=== PATIENT | male | born 1975 | race Two or more races ===

== ENCOUNTER → 2020-01-30 12:14 | Outpatient (BNVA) | payer MEDICARE, MEDICAID, SELFPAY | PROVIDERS: PCP Internal Medicine; Referring Provider Internal Medicine; Visit Provider Student in an Organized Health Care Education/Training Program | DX: M25.50 Pain in unspecified joint (principal); M17.0 Bilateral primary osteoarthritis of knee; Z91.040 Latex allergy status; Z88.0 Allergy status to penicillin; Z91.013 Allergy to seafood | CPT/HCPCS: 99212 ==

== ENCOUNTER 2020-05-01 08:11 | Outpatient (REF) | payer OTHER, SELFPAY ==
[2020-05-01 09:42] LABS: Alanine Aminotransferase 25 U/L (0-40); Albumin Level 4.3 g/dL (3.5-5.0); Alkaline Phosphatase 71 U/L (39-117); Anion Gap 11 (12-20); Aspartate Amino Transferase 19 U/L (5-37); Bilirubin Total 0.7 mg/dL (0.0-1.0); Blood Urea Nitrogen 14 mg/dL (9-16); Calcium 9.1 mg/dL (8.4-10.2); Carbon Dioxide 30 mmol/L (22-29); Chloride 103 mmol/L (96-108); Cholesterol 165 mg/dL; Estimated Glomerular Filt Rate > 60; Glucose Fasting 89 mg/dL (60-99); HDL Cholesterol 46 mg/dL; LDL Cholesterol Calculated 107 mg/dl; Potassium 4.2 mmol/l (3.3-5.1); Sodium 140 mmol/L (135-145); Triglycerides 62 mg/dL
== END 2020-05-01 08:12 | disposition home or self-care (01) ==
LOC: HO.LAB 08:11
PROVIDERS: Visit Provider Internal Medicine
DX: R73.02 Impaired glucose tolerance (oral) (principal); E78.5 Hyperlipidemia, unspecified
CPT/HCPCS: 36415; 80053; 80061

== ENCOUNTER 2021-05-09 12:09 | Emergency (ER) | payer OTHER, SELFPAY ==
--- NOTE | ~2021-05-09 | XR_ITS ---
EXAMINATION: XR SHOULDER, RIGHT CLINICAL INFORMATION: Right shoulder pain COMPARISON: None TECHNIQUE: AP external rotation, Grashey and scapular Y views of the right shoulder. FINDINGS: There is no acute fracture or dislocation. There are severe glenohumeral joint space narrowing with subchondral cystic formation and spurring of the inferior humeral head and inferior glenoid the upper mid clavicular joint spaces preserved. Visualized portion of the lungs is clear. Overlying soft tissues are intact. XR/XR shoulder RT min 2V IMPRESSION: No acute bony abnormality of the right shoulder. Moderate to severe degenerative changes of the glenohumeral joint.
[2021-05-09 12:14] VITALS: BP 138/89; PULSE 107; RESP 20; TEMP 37.6; O2SAT 99; BMI 29.2
--- NOTE | 2021-05-09 12:18 | ED_ITS ---
HPI - Extremity Problem General Chief complaint: Extremity Injury, Upper Stated complaint: arthritis u/a to move rt shoulder painful lumps Time Seen by Provider: 05/09/21 12:18 Source: patient Mode of arrival: ambulatory Limitations: no limitations History of Present Illness HPI Narrative: Patient is a 45 year old male presenting to the emergency department today with right shoulder pain. Patient states that he has an extensive history of arthritis in his right shoulder but today it has been hurting him more. Patient states that he believes he slept on it wrong. Patient denies doing anything new or different with the right shoulder. Patient denies any dizziness, lightheadedness, abdominal pain, nausea, vomiting, fever, chills, blurry vision, double vision, loss of vision, chest pain, difficulty breathing, shortness of breath, back pain, night sweats, pain with urination, increased urinary frequency, increased urinary urgency, blood in his urine or stool, syncope or a near syncopal episode, recent trauma or falls, bowel incontinence, bladder incontinence, bowel retention, bladder retention, or any other complaints at this time. MD Complaint: extremity pain Onset (ago): year(s) Pain Consistency: intermittent Location: right and upper extremity (shoulder) Severity scale (1-10): 4 Quality: aching Radiation: distal Relieving factors: nothing Exacerbating factors: nothing Associated symptoms: denies other symptoms Related Data Previous Rx's Medication Instructions Recorded diclofenac sodium 1 % topical gel 2 g TOPICAL BID #100 g 01/30/20 (Voltaren) cyclobenzaprine 10 mg tablet 10 mg PO TID PRN 7 Days #20 tab 05/09/21 Allergies Allergy/AdvReac Type Severity Reaction Status Date / Time latex [LATEX] Allergy Intermediate ITCHING Verified 01/30/20 12:28 Penicillins Allergy Intermediate RASH Verified 01/30/20 12:28 [PENICILLINS] Shrimp Flavor Allergy Unknown tracheal Uncoded 10/24/19 00:00 swelling Review of Systems Verdana 4l Constitutional: Verdana 4d Verdana 4d Constitutional: Verdana 4d Reports no additional constitutional complaints, Denies chills, Denies fever(s) and Denies night sweats Verdana 4l Eyes: Verdana 4d Verdana 4d Eyes: Verdana 4d Reports no additional eye complaints, Denies blurry vision, Denies change in vision, Denies diplopia, Denies eye discharge, Denies loss of vision and Denies eye pain Verdana 4l ENT: Verdana 4d Denies dizziness Verdana 4l Cardiovascular: Verdana 4d Verdana 4d Cardiovascular: Verdana 4d Reports no additional cardiovascular complaints, Denies chest pain, Denies lightheadedness, Denies Loss of Consciousness and Denies dyspnea Verdana 4l Respiratory: Verdana 4d Verdana 4d Respiratory: Verdana 4d Reports no additional respiratory complaints and Denies dyspnea Verdana 4l Gastrointestinal: Verdana 4d Verdana 4d Gastrointestinal: Verdana 4d Reports no additional gastrointestinal complaints, Denies abdominal pain, Denies melena, Denies hematochezia, Denies change in bowel habits and Denies change in stool character Verdana 4l Genitourinary: Verdana 4d Verdana 4d Genitourinary: Verdana 4d Reports no additional male genitourinary complaints, Denies hematuria, Denies oliguria, Denies difficulty urinating, Denies dysuria, Denies urinary frequency, Denies urinary hesitancy, Denies urinary incontinenceincontinence and Denies urinary urgency Musculoskeletal: Musculoskeletal: Reports no additional musculoskeletal complaints, Reports arthralgias (right shoulder), Reports limited range of motion (right shoulder), Denies numbness and Denies tingling Neurologic: Denies dizziness, Denies loss of vision, Denies numbness and Denies tingling Psychiatric: Psychiatric: Reports no additional psychiatric complaints Endocrine: Endocrine: Reports no additional endocrine complaints Hematologic/Lymphatic: Hematologic/Lymphatic: Reports no additional hematologic/lymphatic complaints Allergic/Immunologic: Allergic/Immunologic: Reports no additional allergic/immunologic complaints [facility] Past Medical History Attestation statement: The following information was validated with the patient. Source: old records reviewed Medical History Bilateral primary osteoarthritis of knee Carpal tunnel syndrome Impaired glucose tolerance Lumbar spondylosis Social History Social History Alcohol intake: current Alcohol intake frequency: a few times a month Alcohol type: beer Advance Directives: No Advance Directives Information Provided: Yes Physical Exam Verdana 4l Vital Signs: Verdana 4d Verdana 4d Vital Signs: Verdana 4d Verdana 4Bd Last Vital Signs Verdana 4d Marble Coper New 4d Marble Coper New 4d Temp 99.6 F 05/09/21 12:14 Marble Coper New 4d Pulse 107 H 05/09/21 12:14 Marble Coper New 4d Resp 20 05/09/21 12:14 BP 138/89 05/09/21 12:14 Pulse Ox 99 05/09/21 12:14 BMI result Body Mass Index 29.2 Const: General: cooperative, no acute distress, alert and awake Nutritional Appearance: well nourished Orientation/consciousness: patient oriented x3 Limitations: no limitations HENMT: Head: Yes normal to inspection and Yes atraumatic Ears: hearing grossly normal bilaterally and external ears normal General nose exam: Normal external nose present, no nasal discharge noted and no epistaxis Face and sinus: Yes normal facial exam, No abrasion and No laceration Mouth: Normal oral and palatal mucosa present, no drooling and no muffled voice Eyes: General: appearance normal, both eyes and all related structures Periorbital: periorbital findings normal Eyelids: Yes eyelids normal Conjunctivae: conjunctivae normal Pupils: Equal, round and reactive pupils present EOM: EOMs intact bilaterally Neck: Neck: Yes normal visual inspection, Yes full ROM and Yes no lymphadenopathy Chest: Chest palpation & inspection: normal inspection of the chest Resp: Effort & Inspection: normal respiratory effort and able to speak in complete sentences Auscultation: clear to auscultation bilaterally Cardio: Rate: regular rate Rhythm: regular rhythm GI: Inspection: Yes normal to inspection Neuro: General: patient oriented x3 and moves all extremities Cranial nerves: Yes Equal, round and reactive pupils present Cognition (Neuro): normal cognition Motor exam (neuro): 5/5 motor strength present throughout Sensory Exam: Normal double simultaneous stimulation for sensation Coordination: [id number] test normal Extrem: Other: restricted ROM of the right shoulder secondary to pain General: Yes normal to inspection and Yes capillary refill normal Psych: Appearance: grossly normal Mental Status: mental status grossly normal Affect: normal affect Attitude: cooperative Thought process: Normal thought process present Thought content: Normal thought content present Insight: Good insight present (Psych) MDM - Extremity (Nontraumatic) MDM Narrative Medical decision making narrative: Patient is a 45 year old male presenting to the emergency department today with. Patient's physical exam showed limited range of motion to the right shoulder, secondary to pain. However, patient's circulation, sensation, and motor was otherwise intact to the right upper extremity. Patient's right shoulder x-ray showed no acute process. Patient's presentation today is most consistent with a musculoskeletal right shoulder pain. I suspect it is worsening arthritis in the right shoulder joint vs. a radiculopathy. I explained my physical exam findings as well as all test results to the patient. I answered all questions asked by the patient. Patient received IM Toradol and PO Flexeril which he stated helped his symptoms significantly. I stressed the importance of the patient taking his medication as prescribed. I stressed the importance of the patient following up with his primary care provider and an orthopedist. I stressed the importance of the patient returning to the emergency department immediately if his symptoms were to worsen or if he were to develop any dizziness, shortness of breath, difficulty breathing, chest pain, blurry vision, loss of vision, nausea, vomiting, abdominal pain, fever, chills, back pain, or any other complaints. Patient verbalized agreement and understanding with this treatment plan and discharge. Differential Diagnosis Differential diagnosis: Unlikely gout (shoulder pain, arthritis, rotator cuff injury) Medical Records Attestation: I reviewed the patient's medical records. Imaging Data right shoulder x-ray: Attestation: I personally reviewed and interpreted this imaging study as follows: My impression: Negative for any acute fractures. Radiologist's impression: EXAMINATION: XR SHOULDER, RIGHT CLINICAL INFORMATION: Right shoulder pain? COMPARISON: None? TECHNIQUE: AP external rotation, Grashey and scapular Y views of the right shoulder. FINDINGS: There is no acute fracture or dislocation. There are severe glenohumeral joint space narrowing with subchondral cystic formation and spurring of the inferior humeral head and inferior glenoid the upper mid clavicular joint spaces preserved. Visualized portion of the lungs is clear. Overlying soft tissues are intact.? XR/XR shoulder RT min 2V IMPRESSION: No acute bony abnormality of the right shoulder. ? Moderate to severe degenerative changes of the glenohumeral joint. Dictated By: LUIS GARCIA MD Signed By: Electronically signed by LUIS GARCIA MD Discharge Plan Discharge Clinical Impression: Acute shoulder pain Patient Disposition: Home, Self-Care Instructions: Shoulder Pain (ED) Additional Instructions: Call to schedule a follow up appointment with an Orthopedic provider. Follow up with your primary care provider. Return to the emergency department immediately if your symptoms worsen or if you develop any dizziness, shortness of breath, difficulty breathing, chest pain, blurry vision, loss of vision, nausea, vomiting, abdominal pain, fever, chills, back pain, or any other complaints. Prescriptions: New cyclobenzaprine 10 mg tablet 10 mg PO TID PRN (Reason: right shoulder pain) 7 Days Qty: 20 0RF No Action diclofenac sodium [Voltaren] 1 % gel 2 g topical BID Qty: 100 1RF Rx Instructions: apply 2 gram as needed to affected joint Referrals: Deandra Griffin MD [Primary Care Provider] - 2 days Interventions: ED Discharge Assessment Last Done: 05/09/21 13:20 Discharge Date/Time: 05/09/21 13:20 Print Language: Arabic
[2021-05-09] MEDS: Cyclobenzaprine HCl 10 MG TABLET PO (13:14)
[2021-05-09] MEDS: Ketorolac Tromethamine 30 MG/ML VIAL IM (13:14)
== END 2021-05-09 13:20 | disposition home or self-care (01) ==
PROVIDERS: Emergency Provider Emergency Medicine; PCP Internal Medicine
DX: M25.511 Pain in right shoulder (principal); Z79.899 Other long term (current) drug therapy
CPT/HCPCS: 73030; 96372; 99284; J1885

== ENCOUNTER 2021-05-13 10:56 | Outpatient (REF) | payer OTHER, SELFPAY ==
--- NOTE | ~2021-05-13 | XR_ITS ---
EXAMINATION: XR CHEST CLINICAL INFORMATION: Pleurodynia COMPARISON: 01/13/2011 TECHNIQUE: 2 views of the chest were obtained. FINDINGS: Cardiomediastinal silhouette is within normal limits. There is an oblong nodular opacity in the peripheral right upper lung field on the frontal radiograph. No additional areas of consolidation or suspicious pulmonary nodules. No pleural effusion or pneumothorax. Osseous structures are unremarkable. XR/XR chest 2V IMPRESSION: [place] nodular opacity in the peripheral right upper lung field measuring approximately 1.6 cm. This could represent focal consolidation, atelectasis versus pulmonary nodule. Recommend CT chest to better evaluate.
--- NOTE | ~2021-05-13 | XR_ITS ---
EXAMINATION: XR SHOULDER, LEFT CLINICAL INFORMATION: Pain in left shoulder COMPARISON: None TECHNIQUE: AP external rotation, Grashey, scapular Y, and axillary views of the left shoulder. FINDINGS: No displaced fracture. The glenohumeral joint appears intact. There are bulky marginal plates along the inferior glenoid and inferior humeral head, question prior trauma. Acromioclavicular joint appears intact. Soft tissues are unremarkable. XR/XR shoulder LT min 2V IMPRESSION: Bulky marginal osteophyte formation in the inferior glenoid and inferior humeral head, question prior trauma/dislocation
== END 2021-05-13 10:57 | disposition home or self-care (01) ==
LOC: HO.XRAY 10:56
PROVIDERS: PCP Internal Medicine; Visit Provider Nurse Practitioner Family
DX: G89.29 Other chronic pain (principal); M25.512 Pain in left shoulder; R07.81 Pleurodynia
CPT/HCPCS: 71046; 73030

== ENCOUNTER 2021-05-25 11:27 | Outpatient (REF) | payer OTHER, SELFPAY | END 2021-05-25 11:28 | disposition home or self-care (01) | LOC: HO.CT 11:27 | PROVIDERS: PCP Internal Medicine; Visit Provider Nurse Practitioner Family | DX: Z13.89 Encounter for screening for other disorder (principal) ==

== ENCOUNTER → 2021-05-26 09:54 | Outpatient (BNVA) | payer OTHER, SELFPAY | PROVIDERS: Visit Provider Physician Assistant | DX: M19.012 Primary osteoarthritis, left shoulder (principal); M25.512 Pain in left shoulder; G89.29 Other chronic pain | CPT/HCPCS: 99202 ==

== ENCOUNTER → 2021-06-03 14:49 | Outpatient (BNVA) | payer OTHER, SELFPAY | PROVIDERS: Referring Provider Internal Medicine; Visit Provider Surgery | DX: Z01.818 Encounter for other preprocedural examination (principal); L72.0 Epidermal cyst | CPT/HCPCS: 99202 ==

== ENCOUNTER 2021-06-22 08:17 | Outpatient (REF) | payer OTHER, SELFPAY ==
--- NOTE | ~2021-06-22 | CT_ITS ---
EXAMINATION: CT CHEST WITH CONTRAST CLINICAL INFORMATION: Solitary pulmonary nodule COMPARISON: Previous chest x-ray May 2021 TECHNIQUE: Multidetector volumetric CT imaging of the chest was obtained after the administration of 65 mL of Omnipaque 350 intravenous contrast without immediate adverse reactions. Axial MIP volume rendering provided. Sagittal and coronal reformatted images were obtained. This CT examination was performed using dose optimization techniques as appropriate, variously including the following: *Automated exposure control *Adjustment of mA and/or kV according to patient size (this includes techniques or standardized protocols for targeted exams where dose is matched to indication/reason for exam; i.e. extremities or head) *Use of iterative reconstruction technique DLP: 184 mGy-cm FINDINGS: TAPING SUPERVISOR: Unremarkable LUNGS: The lungs are clear with no evidence of inflammation or nodules. MEDIASTINUM: The mediastinum is normal. PLEURA: There is no pleural effusion. No pleural mass or thickening. AXILLA: No lymphadenopathy. UPPER ABDOMEN: Unremarkable OSSEOUS STRUCTURES: There are degenerative changes of the spine and right shoulder. CT/CT chest w con IMPRESSION: No pulmonary nodule seen. Fleischner guidelines were followed.
[2021-06-22] MEDS: iohexoL 350 MG/ML 100 ML INFUS..BTL IV (08:48)
== END 2021-06-22 08:18 | disposition home or self-care (01) ==
LOC: HO.CT 08:17
PROVIDERS: Visit Provider Nurse Practitioner Family
DX: R07.81 Pleurodynia (principal); R91.1 Solitary pulmonary nodule; R91.8 Other nonspecific abnormal finding of lung field
CPT/HCPCS: 71260; Q9967

== ENCOUNTER 2021-06-24 07:45 | Outpatient (REF) | payer OTHER, SELFPAY ==
[2021-06-24 07:47] VITALS: BP 132/81; PULSE 79; RESP 18; TEMP 37.3; BMI 32.1
--- NOTE | 2021-06-24 08:35 | W.PM.OPN ---
Operative Note Operative Note Date of Service: 06/24/21 Narrative: Preoperative diagnosis: mass left posterior shoulder Postoperative diagnosis: lipoma left posterior shoulder Procedure: excision of lipoma left posterior shoulder Surgeon: Tio Felix MD Ingot Buggy Operator: no physician Anesthesia: local lidocaine 1% plain Indications for procedure: 46-year-old male patient with an enlarging soft tissue mass in the posterior left shoulder measuring 6 cm in diameter Operative findings: lipoma left posterior shoulder 6 cm diameter Specimen: lipoma posterior left shoulder Estimated blood loss: 5 mL Complications: none Procedure details: patient was brought to the minor surgery suite and placed in a prone position. The site of surgery was confirmed by the patient in the posterior left shoulder. After assuring informed consent, the skin was prepped with Betadine and draped in a sterile fashion. Local anesthesia consisting of 1% lidocaine plain was infiltrated in a transverse fashion over the lipoma. The incision was then created with a scalpel carried out through subcutaneous tissue up to the anterior surface of the lipoma. Sharp dissection was then continued around the surface of the lipoma using a Metzenbaum scissors and sharp scissors. The lesion was completely excised and sent to pathology for further examination. To assuring adequate hemostasis with light pressure the dermis and skin subcutaneous tissue was reapproximated using interrupted 3-0 Polysorb sutures. Skin was then closed using a running subcuticular 4-0 Polysorb suture. Steri-Strips 2 x 2 gauze and Tegaderm were then applied. The patient tolerated the procedure well. He was discharged to home in stable condition.
== END 2021-06-24 07:46 | disposition home or self-care (01) ==
LOC: HO.MS 07:45
PROVIDERS: PCP Internal Medicine; Visit Provider Surgery
PROC: (CPT 23071; principal; 2021-06-24 08:00)
DX: D17.22 Benign lipomatous neoplasm of skin and subcutaneous tissue of left arm (principal)
CPT/HCPCS: 23071; 88304

== ENCOUNTER → 2021-07-06 09:51 | Outpatient (BNVA) | payer OTHER, SELFPAY | PROVIDERS: PCP Internal Medicine; Referring Provider Internal Medicine; Visit Provider Surgery | DX: Z48.817 Encounter for surgical aftercare following surgery on the skin and subcutaneous tissue (principal); Z87.2 Personal history of diseases of the skin and subcutaneous tissue | CPT/HCPCS: 99211 ==

== ENCOUNTER 2022-10-14 11:23 | Outpatient (REF) | payer OTHER, SELFPAY | END 2022-10-14 11:24 | disposition home or self-care (01) | LOC: HO.HOSX 11:23 | PROVIDERS: Visit Provider Physician Assistant | DX: Z13.89 Encounter for screening for other disorder (principal) ==

== ENCOUNTER 2022-12-12 08:16 | Outpatient (REF) | payer OTHER, SELFPAY ==
--- NOTE | ~2022-12-12 | XR_ITS ---
EXAMINATION: XR SHOULDER, LEFT CLINICAL INFORMATION: Left shoulder pain. COMPARISON: None available. TECHNIQUE: Three views of the left shoulder. FINDINGS: No fracture or dislocation is identified. There are moderate degenerative changes of the glenohumeral joint, with joint space narrowing, sclerosis, and osteophyte formation. No abnormal soft tissue calcifications. XR/XR shoulder LT min 2V IMPRESSION: Moderate osteoarthritis of the glenohumeral joint.
== END 2022-12-12 08:17 | disposition home or self-care (01) ==
LOC: HO.HOSX 08:16
PROVIDERS: Visit Provider Physician Assistant
DX: M19.012 Primary osteoarthritis, left shoulder (principal); M19.011 Primary osteoarthritis, right shoulder; G89.29 Other chronic pain
CPT/HCPCS: 73030; 99212

== ENCOUNTER 2022-12-12 09:50 | Outpatient (AMB) | payer OTHER, SELFPAY ==
--- NOTE | 2022-12-12 09:57 | MHC.OFFVIS ---
Intake Vital Signs 12/12/22 10:02 Height 5 ft 6 in Weight 184 lb BMI 29.7 Intake Visit Reasons: OV - left shoulder pain Intake Note: Clarisa 47 year old male who presents today for a follow up of left shoulder OA. Patient reports his pain has been getting worse finding it difficult to sleep. Limited ROM. States he does not take medication. [employer] Name: Valeria ID#[id number] Allergies latex [LATEX] Allergy (Intermediate, Verified 12/12/22 10:03) ITCHING Penicillins [PENICILLINS] Allergy (Intermediate, Verified 12/12/22 10:03) RASH Shrimp Flavor Allergy (Unknown, Uncoded 12/12/22 10:03) tracheal swelling HPI OV - left shoulder pain HPI Details 47-year-old male who presents in the office today for a follow up of bilateral shoulder pain. The right shoulder is worse then the left. The patient reports his pain is increasing and that he is having a difficult time sleeping. He reports limited ROM. He claims he does not take any medication for the shoulder pain. The patient attempted a cortisone in the past but had to abort the injection due to pain. [facility]LY [facility] Medical History Physical exam Impaired glucose tolerance Bilateral primary osteoarthritis of knee Carpal tunnel syndrome Lumbar spondylosis Surgical History H/O right knee surgery H/O neck surgery History of back surgery History of carpal tunnel release of both wrists Family History Mother Diabetes mellitus Father No problems noted. Social History Housing: [facility] Alcohol intake: current Alcohol intake frequency: a few times a week Alcohol type: beer and hard liquor Patient Tobacco Use Status: Never used Tobacco e-Cigarette/Vaping Use: Never Used Second Hand Smoke Exposure: No service: No Current occupational status: retired Cognitive needs: No Hearing needs: No Vision needs: No Review of Systems Const All systems reviewed & are unremarkable except as noted in HPI and below Physical Exam Vital Signs: BMI result Body Mass Index 29.7 Const General: cooperative, healthy appearing and no acute distress Resp Effort & Inspection: normal respiratory effort and able to speak in complete sentences Cardio Rate: regular rate Peripheral pulses: Peripheral pulses 2+ throughout GI Palpation (GI): Soft to palpation Skin Lesions: no lesions Rashes: no rashes Extrem Other: Right shoulder: Forward flexion to 100 degrees. External rotation to neutral. Pain with cross-body reach. NVI. Assessment & Plan Assessment & Plan (1) Chronic left shoulder pain: Code(s): M25.512 - Pain in left shoulder; G89.29 - Other chronic pain (2) Osteoarthritis of left shoulder: Code(s): M19.012 - Primary osteoarthritis, left shoulder (3) Osteoarthritis of right shoulder: Code(s): M19.011 - Primary osteoarthritis, right shoulder Plan Mr. Oconnor is a 47-year-old male who presents in the office today for a follow up of bilateral shoulder pain. The right shoulder is worse then the left. The patient reports his pain is increasing and that he is having a difficult time sleeping. He reports limited ROM. He claims he does not take any medication for the shoulder pain. The patient attempted a cortisone in the past but had to abort the injection due to pain. Dr. Tucker was available to see the patient with me while in the office today and a collaborative treatment plan was made. We will start the process of a right total shoulder arthroplasty. A CT and MRI will be obtained. A message was sent to the nurse navigator to further discuss with the patient in more detail of the procedure. Follow up will be at his pre-operative appointment, or sooner if needed. X-rays of the left shoulder which were obtained while in the office today and were reviewed by me, Iza Spivey PA-C, revealed significant osteoarthritis. Orders: Orders XR shoulder LT min 2V Today M25.519 - Pain in unspecified shoulder MR shoulder RT wo con Today M19.011 - Primary osteoarthritis, right shoulder CT shoulder RT wo IV con Today M19.011 - Primary osteoarthritis, right shoulder Patient Instructions: Scribed for Iza Spivey PA-C by Aspen Tinajero medical support specialist, on 12/12/2022 at 9:53 am, EST. Coding Level of Care Code Est Pt Level 4 (79688) Diagnoses Chronic left shoulder pain M25.512; G89.29 Osteoarthritis of left shoulder M19.012 Osteoarthritis of right shoulder M19.011
[2022-12-12 10:02] VITALS: BMI 29.7
== END 2022-12-12 10:55 | disposition home or self-care (01) ==
PROVIDERS: PCP Internal Medicine; Visit Provider Physician Assistant
DX: M25.512 Pain in left shoulder (principal); G89.29 Other chronic pain; M19.012 Primary osteoarthritis, left shoulder; M19.011 Primary osteoarthritis, right shoulder
CPT/HCPCS: 99214

== ENCOUNTER → 2023-01-02 09:55 | Outpatient (BNVA) | payer OTHER, SELFPAY | PROVIDERS: PCP Internal Medicine; Visit Provider Physician Assistant ==

== ENCOUNTER 2023-01-11 07:22 | Outpatient (REF) | payer OTHER, SELFPAY | END 2023-01-11 07:23 | disposition home or self-care (01) | LOC: HO.LAB 07:22 | PROVIDERS: Visit Provider Internal Medicine | DX: Z00.00 Encounter for general adult medical examination without abnormal findings (principal) | CPT/HCPCS: 36415; 80053; 80061 ==

== ENCOUNTER 2023-01-11 07:37 | Outpatient (REF) | payer OTHER, SELFPAY ==
--- NOTE | ~2023-01-11 | CT_ITS ---
EXAMINATION: CT SHOULDER WITHOUT CONTRAST, RIGHT CLINICAL INFORMATION: Primary osteoarthritis, right shoulder. COMPARISON: Radiograph dated 05/09/2021. TECHNIQUE: Multidetector volumetric imaging was obtained through the right shoulder without contrast. Multiplanar reformatted images in coronal and sagittal orientations were submitted. This CT examination was performed using dose optimization techniques as appropriate, variously including the following: *Automated exposure control. *Adjustment of mA and/or kV according to patient size (this includes techniques or standardized protocols for targeted exams where dose is matched to indication/reason for exam; i.e. extremities or head). *Use of iterative reconstruction technique. DLP: 228 mGy-cm FINDINGS: Severe degenerative arthritis in the glenohumeral joint characterized by severe joint space narrowing, large marginal osteophytes, subchondral sclerosis, subchondral cystic change, and articular surface remodeling. There is retroversion of the glenoid with posterior erosion. No osseous intra-articular loose bodies. Glenoid Retroversion: 29.7 degrees. Glenoid Vault Depth: 25 mm. There is mild degenerative arthritis of the acromioclavicular joint. The undersurface of the acromion is curved with no subacromial spurs. Imaged portion of the clavicle is intact. The included portions of the ribs and chest wall are intact without fractures or lesions. No significant pulmonary abnormalities in the imaged portion of the lung. No axillary adenopathy. There is a small to moderate-sized glenohumeral joint effusion. There is no rotator cuff muscle atrophy. CT/CT shoulder RT wo IV con IMPRESSION: 1. Severe glenohumeral osteoarthritis with glenoid retroversion and posterior erosion. 2. Mild acromioclavicular osteoarthritis.
== END 2023-01-11 07:38 | disposition home or self-care (01) ==
LOC: HO.CT 07:37
PROVIDERS: PCP Internal Medicine; Visit Provider Physician Assistant
DX: M19.011 Primary osteoarthritis, right shoulder (principal)
CPT/HCPCS: 73200

== ENCOUNTER → 2023-02-07 12:38 | Outpatient (BNVA) | payer OTHER, SELFPAY | PROVIDERS: PCP Internal Medicine; Visit Provider Orthopaedic Surgery ==

== ENCOUNTER → 2023-03-03 09:51 | Outpatient (BNVA) | payer OTHER, SELFPAY | PROVIDERS: PCP Internal Medicine; Visit Provider Orthopaedic Surgery | DX: M19.011 Primary osteoarthritis, right shoulder (principal) | CPT/HCPCS: 99212 ==

== ENCOUNTER 2023-03-03 09:52 | Outpatient (AMB) | payer OTHER, SELFPAY ==
[2023-03-03 09:52] VITALS: BMI 29.9
--- NOTE | 2023-03-03 09:52 | A.OFFVIS_ITS ---
Intake Vital Signs 03/03/23 09:52 Height 5 ft 6 in Weight 185 lb BMI 29.9 Intake Visit Reasons: ov- Ct review of right arm Intake Note: Shaun is a 47 year old male who presents today for a CT reveiw of the left shoulder. CT done [place] [facility] [place] Allergies latex [LATEX] Allergy (Intermediate, Verified 03/03/23 09:53) ITCHING Penicillins [PENICILLINS] Allergy (Intermediate, Verified 03/03/23 09:53) RASH Shrimp Flavor Allergy (Unknown, Uncoded 03/03/23 09:53) tracheal swelling HPI ov- Ct review of right arm HPI Details Shaun is a 47 year old man who returns for a CT scan review of his right shoulder. He is scheduled for a right TSA on 03/14/23. He continues to complain of pain with daily activity, along with limited ROM. He has difficulty sleeping due to his pain. He has left shoulder OA & pain as well, but his primary complaint is of his right shoulder OA pain. He has a hx of Polyarthralgia and ETOH abuse. [facility] Medical History Physical exam Impaired glucose tolerance Bilateral primary osteoarthritis of knee Carpal tunnel syndrome Lumbar spondylosis Surgical History H/O right knee surgery H/O neck surgery History of back surgery History of carpal tunnel release of both wrists Family History Mother Diabetes mellitus Father No problems noted. Social History Housing: Condominium Alcohol intake: current Alcohol intake frequency: a few times a week Alcohol type: beer and hard liquor Patient Tobacco Use Status: Never used Tobacco e-Cigarette/Vaping Use: Never Used Second Hand Smoke Exposure: No service: No Current occupational status: retired Cognitive needs: No Hearing needs: No Vision needs: No Physical Exam Vital Signs: BMI result Body Mass Index 29.9 Extrem Other: Right Shoulder: limited ER to 20 deg active abduction to 70 deg with pain FF to 120 Results Reviewed Results Reviewed: I personally reviewed relevant CT images 1. Severe glenohumeral osteoarthritis with glenoid retroversion and posterior erosion. 2. Mild acromioclavicular osteoarthritis. Assessment & Plan Assessment & Plan (1) Osteoarthritis of right shoulder: Code(s): M19.011 - Primary osteoarthritis, right shoulder Qualifiers: Osteoarthritis type: primary Qualified Code(s): M19.011 - Primary osteoarthritis, right shoulder Plan: This is a 47 year old man with significant GH OA of the right shoulder, with glenoid retroversion and posterior erosion seen on CT scan. He has pain with daily activity and limited ROM. He is limited in his ADLs and feels his QOL is diminished. He is scheduled for a right TSA on 03/14/23 and he would like to proceed with surgery. I discussed the risks, benefits, and alternatives including, but not limited to, the risk of pain, infection, stiffness, need for further surgery as well as potential medical complications such as blood clots, pulmonary embolism and cardiac complications. I discussed the recovery timeline and process as well as the importance of PT. He does describe 1-2 drinks 2-3 times/wk. I recommend he avoid etoh in the 3 mo post op period Coding Level of Care Code Global (98713) Diagnoses Primary osteoarthritis of right shoulder M19.011 Osteoarthritis type: primary
== END 2023-03-03 10:43 | disposition home or self-care (01) ==
PROVIDERS: PCP Internal Medicine; Visit Provider Orthopaedic Surgery
DX: M19.011 Primary osteoarthritis, right shoulder (principal)
CPT/HCPCS: 99214

== ENCOUNTER → 2023-03-07 12:40 | Outpatient (BNV) | payer OTHER, SELFPAY | PROVIDERS: Admitting Provider Orthopaedic Surgery; PCP Internal Medicine; Visit Provider Internal Medicine | DX: Z01.818 Encounter for other preprocedural examination (principal); M19.011 Primary osteoarthritis, right shoulder | CPT/HCPCS: 93010 ==

== ENCOUNTER 2023-03-07 18:52 | Outpatient (REF) | payer OTHER, SELFPAY ==
--- NOTE | ~2023-03-07 | MR_ITS ---
EXAMINATION: MR SHOULDER WITHOUT CONTRAST, RIGHT CLINICAL INFORMATION: Right shoulder pain. Osteoarthritis. Pain and numbness. COMPARISON: Right shoulder CT dated 01/11/2023. TECHNIQUE: MRI of the shoulder without contrast was performed on a high-field scanner. FINDINGS: ROTATOR CUFF: Mild subscapularis tendinosis with articular surface fraying/partial tearing. No full-thickness rotator cuff tendon tear. No muscle atrophy or fatty infiltration. BICEPS: Intact. CORACOACROMIAL ARCH: The undersurface of the acromion is flat with no subacromial spur. Mild acromioclavicular osteoarthritis. LABRUM/CAPSULE: Diffuse heterogeneity and irregularity of the labrum, consistent with complex tearing. Undersurface tear throughout the posterosuperior, posterior, and posteroinferior labrum with a posterior paralabral cyst measuring up to 2.8 cm in craniocaudal dimension. Intact joint capsule. GLENOHUMERAL JOINT/MARROW: Chronic posterior subluxation of the humeral head with full-thickness humeral head and glenoid articular cartilage loss as well as mild bony remodeling. Prominent marginal osteophytes and subchondral cystic change. Moderate joint effusion with synovitis. MR/MR shoulder RT wo con IMPRESSION: 1. Chronic posterior subluxation of the humeral head with severe glenohumeral osteoarthritis and mild bony remodeling. Moderate joint effusion with synovitis. 2. Diffuse complex tearing of the glenoid labrum. Undersurface tearing throughout the posterosuperior, posterior, and posteroinferior labrum with a posterior paralabral cyst measuring up to 2.8 cm. 3. Mild subscapularis tendinosis with articular surface fraying/partial tearing. No full-thickness rotator cuff tendon tear. 4. Mild acromioclavicular osteoarthritis.
== END 2023-03-07 18:53 | disposition home or self-care (01) ==
LOC: HO.MRI 18:52
PROVIDERS: PCP Internal Medicine; Visit Provider Physician Assistant
DX: M19.011 Primary osteoarthritis, right shoulder (principal)
CPT/HCPCS: 73221

== ENCOUNTER 2023-03-08 10:26 | Outpatient (AMB) | payer OTHER, SELFPAY ==
[2023-03-08 10:09] VITALS: BP 140/88; PULSE 67; O2SAT 99; BMI 29.7
--- NOTE | 2023-03-08 10:09 | A.OFFPC_ITS ---
Vital Signs 03/08/23 10:09 03/08/23 10:51 Height 5 ft 6 in Weight 184 lb 0.2 oz BMI 29.7 BP 140/88 H 136/78 Blood Pressure Location Lt brachial Lt brachial Position Sitting Sitting Pulse 67 Pulse Source Pulse Oximeter Pulse Oximetry (%) 99 Oxygen Delivery Method Room Air Intake Visit Reasons: L total shoulder replacement 03/14 Dr Tucker Intake Note: nPatient is here for a Pre-op for left total shoulder replacement scheduled with Dr. Tucker on03/14/23 Train Control Electronic Technician Required: No Allergies shrimp Allergy (Severe, Verified 03/08/23 10:35) throat swelling latex [LATEX] Allergy (Intermediate, Verified 03/08/23 10:35) ITCHING Penicillins [PENICILLINS] Allergy (Intermediate, Verified 03/08/23 10:35) RASH Medication List - Last Reconciled 03/08/23 by REYMUNDO Perez No Known Home Meds Tobacco use date assessed: 03/08/23 Dental Screening Dental Screen Date: 03/08/23 Did you have a dental visit in the last 12 months?: Yes Did you have a dental problem in the last 6 months where you did not have access to dental care?: No Was dental information given to patient?: Patient has dentist HPI L total shoulder replacement 03/14 Dr Tucker HPI Details Patient is a 47-year-old male who presents today for preop clearance. Patient of Dr. Read. Surgery: Right total shoulder replacement due to right shoulder osteoarthritis Date: 03/14/23 Surgeon: Dr. Tucker Location: [facility] Anaesthesia: General. Patient reports history of general anesthesia in the past that he tolerated well. Patient denies history of perioperative hypothermia or blood clotting disorders. He is not on anticoagulation. Medical history significant for lumbar spondylosis, impaired glucose tolerance, polyarthralgia, chronic right shoulder pain, osteoarthritis of left shoulder, alcohol abuse-patient reports no alcohol consumption for the past 5 days, sleep apnea-on CPAP. Patient denies shortness of breath or chest pain. [facility] Medical History (Updated 03/08/23 @ 11:05 by REYMUNDO ePrez) Opacity of lung on imaging study Pleurodynia Rib pain Sleep apnea History of alcohol dependence Osteoarthritis Impaired glucose tolerance Bilateral primary osteoarthritis of knee Carpal tunnel syndrome Lumbar spondylosis Surgical History Hx of carpal tunnel repair Hx of hand surgery Hx of knee surgery Hx of knee surgery H/O right knee surgery H/O neck surgery Family History Mother Diabetes mellitus Father No problems noted. Social History Housing: Condominium Are you a primary manager wound care to a significant other at home: No Do you presently have visiting nurse or other home services: No Alcohol intake: current Alcohol intake frequency: a few times a week Alcohol type: beer and hard liquor Patient Tobacco Use Status: Never used Tobacco e-Cigarette/Vaping Use: Never Used Second Hand Smoke Exposure: No Advance Directives Date on File: 06/24/15 service: No Current occupational status: retired Cognitive needs: No Hearing needs: No Vision needs: No Questionnaire Thrive Questionnaire Date Thrive assessed: 09/22/22 AUDIT C Alcohol Use Questionnaire (AUDIT-C) 1. How often do you have a drink containing alcohol?: 2-3 times a week 2. How many drinks containing alcohol do you have on a typical day when you are drinking?: 5 or 6 3. How often do you have six or more drinks on one occasion?: Weekly Total Score: 8 Score Reviewed/Action Taken: Yes ROSANA-7 AMB Questionnaire ROSNAA-7 Date ROSANA - 7 assessed: 09/22/22 Source: Developed by Drs. Kennedy Rivera, Ayala English, Akash Hollis and colleagues, with an educational ana from [facility]. Review of Systems Const Denies body aches, Denies chills, Denies fever(s) and Denies headache(s) Eyes Denies change in vision ENT Denies dizziness, Denies otalgia, Denies headache(s), Denies nasal discharge, Denies sinus pain and Denies sore throat Card Denies chest pain, Denies edema, Denies lightheadedness and Denies dyspnea Resp Denies cough, Denies dyspnea and Denies wheezing GI Denies abdominal pain, Denies constipation, Denies diarrhea, Denies nausea and Denies vomiting Denies dysuria Musc Denies myalgias and Reports arthralgias Skin/Breast Denies rash Neuro Denies dizziness and Denies headache(s) Aller/Immun Denies wheezing Physical exam (Primary Care) Vital Signs: Last Vital Signs Pulse 67 03/08/23 10:09 BP 136/78 03/08/23 10:51 Pulse Ox 99 03/08/23 10:09 Oxygen Delivery Method Room Air 03/08/23 10:09 BMI result Body Mass Index 29.7 Tobacco/Smoking Status: Tobacco use Status Tobacco use date assessed 03/08/23 03/08/23 10:10 Patient Tobacco Use Status Never used Tobacco 03/08/23 10:10 e-Cigarette/Vaping Use Never Used 03/08/23 10:10 Thrive Assessment: Date of Thrive Assessment Date Thrive assessed 09/22/22 03/08/23 10:10 Const General: cooperative and no acute distress Orientation/consciousness: patient oriented x3 HENMT Head: Yes normocephalic and Yes atraumatic Ears: TM's normal bilaterally Face and sinus: Yes sinuses nontender Mouth: oropharynx normal and moist mucous membranes Throat: Yes posterior oropharynx normal Eyes General: appearance normal, both eyes and all related structures Pupils: Equal, round and reactive pupils present EOM: EOMs intact bilaterally Neck Neck: Yes normal visual inspection, Yes full ROM and Yes no lymphadenopathy Thyroid: Thyroid normal Resp Effort & Inspection: normal respiratory effort and able to speak in complete sentences Auscultation: clear to auscultation bilaterally, no crackles, no rales, no rhonchi and no wheezes Cardio Rate: regular rate Rhythm: regular rhythm Heart sounds: S1 normal heart sound present, S2 normal heart sound present and no murmurs GI Palpation (GI): Soft to palpation, not firm, nontender, no guarding, not rigid and no hepatosplenomegaly Auscultation: normal bowel sounds General: No CVA tenderness Back/Spine/Pelvis Back: No CVA tenderness Skin General skin exam: no rashes or lesions noted Neuro General: patient oriented x3 Cranial nerves: Yes Equal, round and reactive pupils present Gait exam (Neuro): Normal gait present Extrem General: No edema Right upper extremity: shoulder/upper arm Details: abnormal ROM (Pain with range of motion); no tenderness and no crepitus Results Reviewed Results Reviewed: Laboratory Tests 03/07/23 03/07/23 03/08/23 12:55 12:55 11:36 WBC 5.7 RBC 5.03 Hgb 13.9 L Hct 43.4 MCV 86.3 MCH 27.6 MCHC 32.0 RDW 13.2 Plt Count 261 MPV 10.9 PT 11.1 INR 0.9 Sodium 139 Potassium 4.0 Chloride 102 Carbon Dioxide 29 Anion Gap 12 BUN 11 Creatinine 0.85 Estim Creat Clear Calc 108.1 Estimated GFR > 60 Random Glucose 96 Calcium 9.8 TSH 03/08/23 11:36 WBC RBC Hgb Hct MCV MCH MCHC RDW Plt Count MPV PT INR Sodium Potassium Chloride Carbon Dioxide Anion Gap BUN Creatinine Estim Creat Clear Calc Estimated GFR Random Glucose Calcium TSH 0.92 Assessment and Plan Assessment & Plan (1) Sleep apnea: Comment: has CPAP-uses about 4 hours/night Code(s): G47.30 - Sleep apnea, unspecified Plan: Please allow patient to bring his CPAP if he will be staying at the hospital overnight (2) Preoperative clearance: Code(s): Z01.818 - Encounter for other preprocedural examination Plan: METs > 4; RCRI Class 1 cardiovascular risk 0.4% for an intermediate risk surgery (recent blood work 03/2023) Regarding preop clearance, the patient is at acceptable risk for proposed surgery. Reviewed with the patient that no surgery is completely free of risk and that this examination is to assist the surgeon in reviewing informed consent. Postop care including DVT prophylaxis per surgeon. Patient is cleared for surgery. Patient is to hold NSAIDs 5 days before surgery. 03/07/2023 EKG with no acute findings, reviewed by Dr. Clement. Ordering Physician: Santy Mckeon PA-C Date of Service: 03/07/23 Procedure(s): ECG 12 lead EKG Accession Number(s): [id number] cc: Santy Mckeon PA-C~ Test Reason : PREOP Blood Pressure : / mmHG Vent. Rate : 062 BPM Atrial Rate : 062 BPM P-R Int : 144 ms QRS Dur : 098 ms QT Int : 400 ms P-R-T Axes : 054 001 -13 degrees QTc Int : 406 ms Normal sinus rhythm Moderate voltage criteria for LVH, may be normal variant ( R in aVL , Prashant product ) Borderline ECG When compared with ECG of 13-JAN-2011 08:05, No significant change was found Referred By: Santy Mckeon Electronically Signed By:VELMA IGLESIAS (3) Osteoarthritis of right shoulder: Code(s): M19.011 - Primary osteoarthritis, right shoulder Plan: Surgery: Right total shoulder replacement due to right shoulder osteoarthritis Date: 03/14/23 Surgeon: Dr. Tucker Location: [facility] Anaesthesia: General. Orders: Orders TSH reflex Free T4 Today Z01.818 - Encounter for other preprocedural examination Prothrombin Time INR Today Z01.818 - Encounter for other preprocedural examination Coding Level of Care Code Est Pt Level 3 (31285) Diagnoses Sleep apnea G47.30 Preoperative clearance Z01.818 Osteoarthritis of right shoulder M19.011
[2023-03-08 10:51] VITALS: BP 136/78
== END 2023-03-08 11:30 | disposition home or self-care (01) ==
PROVIDERS: PCP Internal Medicine; Visit Provider Nurse Practitioner Family
DX: G47.30 Sleep apnea, unspecified (principal); Z01.818 Encounter for other preprocedural examination; M19.011 Primary osteoarthritis, right shoulder
CPT/HCPCS: 99213

== ENCOUNTER 2023-03-09 08:34 | Outpatient (AMB) | payer OTHER, SELFPAY ==
--- NOTE | 2023-03-09 09:03 | MHC.OFFVIS ---
Intake Vital Signs 03/09/23 09:04 Height 5 ft 6 in Weight 184 lb BMI 29.7 Intake Visit Reasons: Preop Rt TSA 03/14/23 NE Intake Note: Shaun 47 yr old male presents today for his pre-op visit for his right TSA schedule for 03/14/23. Pain management agreement reviewed and signed. Allergies shrimp Allergy (Severe, Verified 03/09/23 09:08) throat swelling latex [LATEX] Allergy (Intermediate, Verified 03/09/23 09:08) ITCHING Penicillins [PENICILLINS] Allergy (Intermediate, Verified 03/09/23 09:08) RASH Medication List - Last Reconciled 03/09/23 by Santy Mckeon PA-C No Known Home Meds HPI HPI Comments History of Present Illness Details Elvin Chiu presents to the office today for preop visit. She is scheduled for right total shoulder arthroplasty with Dr. Tucker. She continues to have ongoing pain and difficulty with in the right shoulder, which is affecting her quality of life; therefore, she has elected to move forward with surgery. [facility]LY [facility], [facility] Medical History (Updated 03/09/23 @ 09:21 by Santy Mckeon PA-C) Opacity of lung on imaging study Pleurodynia Rib pain Sleep apnea History of alcohol dependence Osteoarthritis Impaired glucose tolerance Bilateral primary osteoarthritis of knee Carpal tunnel syndrome Lumbar spondylosis Surgical History Hx of carpal tunnel repair Hx of hand surgery Hx of knee surgery Hx of knee surgery H/O right knee surgery H/O neck surgery Family History Mother Diabetes mellitus Father No problems noted. Social History Housing: Condominium Are you a primary critical care physician assistant to a significant other at home: No Do you presently have visiting nurse or other home services: No Alcohol intake: current Alcohol intake frequency: a few times a week Alcohol type: beer and hard liquor Patient Tobacco Use Status: Never used Tobacco e-Cigarette/Vaping Use: Never Used Second Hand Smoke Exposure: No Advance Directives Date on File: 06/24/15 service: No Current occupational status: retired Cognitive needs: No Hearing needs: No Vision needs: No Review of Systems Const All systems reviewed & are unremarkable except as noted in HPI and below Physical Exam Vital Signs: BMI result Body Mass Index 29.7 Const General: cooperative, healthy appearing, comfortable, no acute distress, well developed and alert Orientation/consciousness: patient oriented x3 HEENT Head: Yes normal to inspection, Yes normocephalic and Yes atraumatic Eyes General: appearance normal, both eyes and all related structures Neck Neck: Yes normal visual inspection and Yes no lymphadenopathy Resp Effort & Inspection: normal respiratory effort and able to speak in complete sentences Cardio Rate: regular rate Peripheral pulses: Peripheral pulses 2+ throughout GI Inspection: Yes normal to inspection Palpation (GI): Soft to palpation Skin General skin exam: no rashes or lesions noted Neuro General: patient oriented x3 Extrem Other: Right Shoulder: Skin intact, no abraisons or rash limited ER to 20 deg active abduction to 70 deg with pain FF to 120 Psych Appearance: grossly normal Mental Status: mental status grossly normal Results Reviewed Results Reviewed: xrays of the right shoulder obtained on 05/09/21 IMPRESSION: No acute bony abnormality of the right shoulder. Moderate to severe degenerative changes of the glenohumeral joint. Assessment & Plan Assessment & Plan (1) Osteoarthritis of right shoulder: Code(s): M19.011 - Primary osteoarthritis, right shoulder Qualifiers: Osteoarthritis type: primary Qualified Code(s): M19.011 - Primary osteoarthritis, right shoulder Plan I discussed in detail the procedure and what to expect pre and post operatively.? We discussed the risks, benefits and alternatives to the surgery as well as the rehabilitation course. The risks; which include, but are not limited to infection, bleeding, nerve injury, ongoing pain, swelling, and stiffness, perioperative risk of injury to bones and soft tissues, and blood clots. ? I?ve answered all questions and with their understanding they have consented to move forward with Right total shoulder arthroplasty with Dr. Tucker The patient was fit for a sling in the office today Coding Level of Care Code Est Pt Level 3 (73693) Diagnoses Primary osteoarthritis of right shoulder M19.011 Osteoarthritis type: primary
[2023-03-09 09:04] VITALS: BMI 29.7
== END 2023-03-09 09:23 | disposition home or self-care (01) ==
PROVIDERS: PCP Internal Medicine; Visit Provider Physician Assistant
DX: M19.011 Primary osteoarthritis, right shoulder (principal)
CPT/HCPCS: 99024

== ENCOUNTER → 2023-03-09 08:34 | Outpatient (BNVA) | payer OTHER, SELFPAY | PROVIDERS: PCP Internal Medicine; Visit Provider Physician Assistant | DX: Z01.818 Encounter for other preprocedural examination (principal); M19.011 Primary osteoarthritis, right shoulder | CPT/HCPCS: 99212 ==

== ENCOUNTER 2023-03-14 06:09 | Day surgery (SDC) | payer OTHER, SELFPAY ==
[2023-03-07 12:12] VITALS: BP 134/73; PULSE 68; RESP 20; O2SAT 98; BMI 30.7
--- NOTE | 2023-03-07 12:24 | HO.ANESPROP2 ---
Documented by User: Concepción Cazares NP 03/13/23 12:09 HPI - Anesthesia Eval Consult details Narrative: 47yo M for Right Shoulder Total Arthroplasty PCP cleared No recent illness No CP/SOB with 2 flights of stairs. Limited by knee pain CASIE. Occasional use. +ETOH. >6 drinks multiple times weekly. Encouraged reduced amount. PMFSH Active Problems Active Problems: All Active Problems (Updated 03/07/23 @ 12:11 by Gayathri Martin RN) Screen for colon cancer (Acute) Alcohol abuse (Acute) Physical exam (Acute) Epidermal inclusion cyst (Acute) Osteoarthritis of left shoulder (Acute) Opacity of lung on imaging study (Acute) Pleurodynia (Acute) Lump of skin of back (Acute) Rib pain (Acute) Lipoma (Acute) Chronic left shoulder pain (Acute) Chronic right shoulder pain (Acute) Right shoulder pain (Acute) Polyarthralgia (Acute) Impaired glucose tolerance (Acute) Bilateral primary osteoarthritis of knee (Acute) Lumbar spondylosis (Acute) Past Medical History Medical History Opacity of lung on imaging study Pleurodynia Rib pain Sleep apnea History of alcohol dependence Osteoarthritis Impaired glucose tolerance Bilateral primary osteoarthritis of knee Carpal tunnel syndrome Lumbar spondylosis Family History Family History Mother Diabetes mellitus Father No problems noted. Family history of problems with anesthesia: No Surgical History Surgical History Hx of carpal tunnel repair Hx of hand surgery Hx of knee surgery Hx of knee surgery H/O right knee surgery H/O neck surgery History of Problems with Anesthesia: No Social History Social History Housing: Condominium Are you a primary health care marketing specialist to a significant other at home: No Do you presently have visiting nurse or other home services: No Alcohol intake: current Alcohol intake frequency: 0-2 drinks per day Alcohol type: beer and hard liquor Patient Tobacco Use Status: Never used Tobacco e-Cigarette/Vaping Use: Never Used Second Hand Smoke Exposure: No Use of substances other than those prescribed or required for medical reasons: No Have you been hit, kicked, punched, or otherwise hurt by someone within the past year? If so, by whom?: No Are you DNR?: No Advance Directives: Yes Advance Directives Information Provided: Yes Advance Directives on File: Yes Advance Directives Date on File: 06/24/15 Recently lost weight without trying: No Eating poorly because of decreased appetite: No Nutrition Risks: No Nutritional Risk Poor oral hygiene: No (2 missing teeth upper & one missing tooth lower) service: No Current occupational status: retired Cognitive needs: No Hearing needs: No Vision needs: No Meds Allergies Allergy/AdvReac Type Severity Reaction Status Date / Time shrimp Allergy Severe throat Verified 03/14/23 07:45 swelling latex [LATEX] Allergy Intermediate ITCHING Verified 03/14/23 07:45 Penicillins [PENICILLINS] Allergy Intermediate RASH Verified 03/14/23 07:45 Home Medications Medication Instructions Recorded Confirmed Last Taken Type No Known Home Meds 03/07/23 03/09/23 Unknown History Exam Height,Weight and Vital Signs: Height 5 ft 6 in Weight 86.183 kg Last Vital Signs Pulse 68 03/07/23 12:12 Resp 20 03/07/23 12:12 BP 134/73 03/07/23 12:12 Pulse Ox 98 03/07/23 12:12 O2 Del Method Room Air 03/07/23 12:12 Pertinent Lab Results Pertinent Lab Results: Lab Results 03/07/23 03/07/23 03/08/23 Range/Units 12:20 12:55 11:36 WBC 5.7 (4.8-10.8) X10*3/uL RBC 5.03 (4.60-5.80) X10*6/uL Hgb 13.9 L (14.0-18.0) g/dl Hct 43.4 (42.0-52.0) % MCV 86.3 (80.0-98.0) fL MCH 27.6 (27.0-33.0) pg MCHC 32.0 (31.0-36.0) g/dl RDW 13.2 (11.0-16.0) % Plt Count 261 (160-400) X10*3/uL MPV 10.9 (9.4-12.4) fL Immature Gran % (Auto) 0.2 (0.0-0.4) % Neut % (Auto) 49.8 (45-73) % Lymph % (Auto) 29.2 (20-40) % Dickey % (Auto) 8.4 (2-11) % Eos % (Auto) 11.7 H (0-4) % Baso % (Auto) 0.7 (0-2) % Lymph # (Auto) 1.7 (1.2-4.9) X10*3/uL Dickey # (Auto) 0.5 (0.1-1.2) X10*3/uL Eos # (Auto) 0.7 H (0.0-0.4) X10*3/uL Baso # (Auto) 0.0 (0.0-0.2) X10*3/uL Abs Immat Gran (auto) 0.01 (0.00-0.03) X10*3/uL Absolute Neuts (auto) 2.8 (2.0-8.3) x10*3/uL Absolute Nucleated RBC 0.000 (0.0-0.012) X10*3/uL Nucleated RBC % (auto) 0.0 (0.0-0.2) /100WBC PT 11.1 (11.1-13.3) SEC INR 0.9 (0.9-1.1) Sodium 139 (135-145) mmol/L Potassium 4.0 (3.3-5.1) mmol/L Chloride 102 (96-108) mmol/L Carbon Dioxide 29 (22-29) mmol/L Anion Gap 12 (12-20) BUN 11 (9-16) mg/dL Creatinine 0.85 (0.5-1.4) mg/dL Estim Creat Clear Calc 108.1 Estimated GFR > 60 Random Glucose 96 (60-115) mg/dL Calcium 9.8 (8.4-10.2) mg/dL TSH 0.92 (0.32-4.0) uIU/mL Nasal Screen MRSA (PCR) NEGATIVE (Negative) Nasal S. aureus Screen POSITIVE A (Negative) Nasal MRSA/S.aureus Interp SEE NOTE Blood Type O Positive Antibody Screen NEGATIVE Narrative Narrative: EKG 03/2023 Vent. Rate : 062 BPM Atrial Rate : 062 BPM P-R Int : 144 ms QRS Dur : 098 ms QT Int : 400 ms P-R-T Axes : 054 001 -13 degrees QTc Int : 406 ms Normal sinus rhythm Moderate voltage criteria for LVH, may be normal variant ( R in aVL , Matthews product ) Borderline ECG When compared with ECG of 13-JAN-2011 08:05, No significant change was found Airway Mallampati Class: II TM Dist: >3cm Neck ROM: Limited (Pain. Post c-spine surgery) Loose/Missing/Broken Teeth: Yes (Molars missing) Heart: RRR Lungs: CTAB Assessment and Plan Assessment Anesthesia Assessment: Anesthesia Plan Discussed and PAT Visit Final Anesthetic Review Family History of Problems with Anesthesia: No History of Problems with Anesthesia: No Documented by User: Balwinder Brooks MD 03/14/23 08:01 [facility] Past Medical History Medical History Opacity of lung on imaging study Pleurodynia Rib pain Sleep apnea History of alcohol dependence Osteoarthritis Impaired glucose tolerance Bilateral primary osteoarthritis of knee Carpal tunnel syndrome Lumbar spondylosis Family History Family History Mother Diabetes mellitus Father No problems noted. Surgical History Surgical History Hx of carpal tunnel repair Hx of hand surgery Hx of knee surgery Hx of knee surgery H/O right knee surgery H/O neck surgery Social History Social History Housing: Condominium Are you a primary health care marketing specialist to a significant other at home: No Do you presently have visiting nurse or other home services: No Alcohol intake: current Alcohol intake frequency: 0-2 drinks per day Alcohol type: beer and hard liquor Patient Tobacco Use Status: Never used Tobacco e-Cigarette/Vaping Use: Never Used Second Hand Smoke Exposure: No Use of substances other than those prescribed or required for medical reasons: No Have you been hit, kicked, punched, or otherwise hurt by someone within the past year? If so, by whom?: No Are you DNR?: No Advance Directives: Yes Advance Directives Information Provided: Yes Advance Directives on File: Yes Advance Directives Date on File: 06/24/15 Recently lost weight without trying: No Eating poorly because of decreased appetite: No Nutrition Risks: No Nutritional Risk Poor oral hygiene: No (2 missing teeth upper & one missing tooth lower) service: No Current occupational status: retired Cognitive needs: No Hearing needs: No Vision needs: No Meds Allergies Allergy/AdvReac Type Severity Reaction Status Date / Time shrimp Allergy Severe throat Verified 03/14/23 07:45 swelling latex [LATEX] Allergy Intermediate ITCHING Verified 03/14/23 07:45 Penicillins [PENICILLINS] Allergy Intermediate RASH Verified 03/14/23 07:45 Home Medications Medication Instructions Recorded Confirmed Last Taken Type No Known Home Meds 03/07/23 03/09/23 Unknown History Assessment and Plan Final Anesthetic Review NPO: Yes ASA Class: III Final Preanesthetic Review: No Changes in Pt Med Stat, Meds/Allgs Chart Reviewed, Consent Obtained/Reviewed and Anes Risks/Benef Reviewed Patient Risk: Intermediate Procedure Risk: Intermediate Anesthetic Plan Anesthetic Plan: GA, Regional Block and Agree w/ Assess. and Plan Disposition: Standard PACU
--- NOTE | 2023-03-07 12:40 | ECG_ITS ---
Test Reason : PREOP Blood Pressure : / mmHG Vent. Rate : 062 BPM Atrial Rate : 062 BPM P-R Int : 144 ms QRS Dur : 098 ms QT Int : 400 ms P-R-T Axes : 054 001 -13 degrees QTc Int : 406 ms Normal sinus rhythm Moderate voltage criteria for LVH, may be normal variant ( R in aVL , Prashant product ) Borderline ECG When compared with ECG of 13-JAN-2011 08:05, No significant change was found Referred By: Santy Mckeon Electronically Signed By:VELMA IGLESIAS
[2023-03-07 13:01] LABS: MANUAL DIFF FLAG NO
[2023-03-07 13:45] LABS: Basophils Percent Auto 0.7 % (0-2); Eosinophils Absolute Auto 0.7 X10*3/uL (0.0-0.4); Eosinophils Percent Auto 11.7 % (0-4); Hematocrit 43.4 % (42.0-52.0); Hemoglobin 13.9 g/dl (14.0-18.0); Imm Gran Abs Auto 0.01 X10*3/uL (0.00-0.03); Imm Gran Pct Auto 0.2 % (0.0-0.4); Lymphocytes Absolute Auto 1.7 X10*3/uL (1.2-4.9); Lymphocytes Percent Auto 29.2 % (20-40); Mean Corpuscular Hemoglobin 27.6 pg (27.0-33.0); Mean Corpuscular Volume 86.3 fL (80.0-98.0); Mean Platelet Volume 10.9 fL (9.4-12.4); Monocytes Absolute Auto 0.5 X10*3/uL (0.1-1.2); Monocytes Percent Auto 8.4 % (2-11); Neutrophils Absolute Auto 2.8 x10*3/uL (2.0-8.3); Neutrophils Percent Auto 49.8 % (45-73); Platelet Count 261 X10*3/uL (160-400); Red Blood Count 5.03 X10*6/uL (4.60-5.80); Red Cell Distribution Width 13.2 % (11.0-16.0); White Blood Count 5.7 X10*3/uL (4.8-10.8)
[2023-03-07 14:40] LABS: Anion Gap 12 (12-20); Blood Urea Nitrogen 11 mg/dL (9-16); Calcium 9.8 mg/dL (8.4-10.2); Carbon Dioxide 29 mmol/L (22-29); Chloride 102 mmol/L (96-108); Creatinine Clr Calc Pharmacy 108.1; Estimated Glomerular Filt Rate > 60; Glucose Random 96 mg/dL (60-115); Sodium 139 mmol/L (135-145)
[2023-03-07 15:11] LABS: MRSA Nasal PCR NEGATIVE (Negative); SA Nasal PCR POSITIVE (Negative)
[2023-03-08 12:15] LABS: INTERNATIONAL NORM RATIO 0.9 (0.9-1.1); Prothrombin Time 11.1 SEC (11.1-13.3)
[2023-03-08 12:49] LABS: TSH reflex Free T4 0.92 uIU/mL (0.32-4.0)
[2023-03-14] VITALS (10 sets, daily range): BP systolic 109–159; BP diastolic 57–88; PULSE 76–87; RESP 14–19; TEMP 36.3–36.6; O2SAT 93–100; BMI 29.7; BMI 30.8
--- NOTE | ~2023-03-14 | XR_ITS ---
EXAMINATION: XR SHOULDER, RIGHT CLINICAL INFORMATION: Total shoulder arthroplasty COMPARISON: MRI the right shoulder March 2023. X-ray the right shoulder May 2021 TECHNIQUE: Single frontal portable view of the right shoulder. FINDINGS: Right total shoulder arthroplasty noted with components in usual position. No periprosthetic fracture or suspicious area of lucency. Small amount of gas present within the soft tissues compatible with postsurgical result. Skin mary noted. XR/XR shoulder RT 1V IMPRESSION: Right total shoulder arthroplasty without complication by x-ray.
[2023-03-14] MEDS: Lactated Ringers 1,000 ML 100 ML IVCONT ×2 (08:16→14:28)
--- NOTE | 2023-03-14 08:29 | PC.NURSE ---
[employer] called for CPAP check. Confirmation number [id number].
--- NOTE | 2023-03-14 09:38 | MHC.SHP ---
Pre-Procedural Eval Section A Date of Service: 03/14/23 The patient is an INPATIENT: No Changes since office visit: No Cold of Flu in the past 2 weeks, No New Medical Problems, No Changes in Medication and No Patient answered all questions The History & Physical has been completed within 30 days and I have reviewed it.: Yes Section B Chief Complaint: Primary osteoarthritis, right shoulder Allergies: Allergies Allergy/AdvReac Type Severity Reaction Status Date / Time shrimp Allergy Severe throat Verified 03/14/23 07:45 swelling latex [LATEX] Allergy Intermediate ITCHING Verified 03/14/23 07:45 Penicillins [PENICILLINS] Allergy Intermediate RASH Verified 03/14/23 07:45 Plan I have reviewed the history and physical and performed a pertinent physical examination on my patient. No changes have occurred unless specified. Time Spent With Patient Time: Total time managing care of this patient today ____ minutes.
[2023-03-14] MEDS: fentaNYL citrate/PF 100 MCG/2 ML VIAL 25 MCG IVPUSH ×2 (13:26→13:35)
--- NOTE | 2023-03-14 15:56 | PM.OP ---
Brief Operative Note Date of Service: 03/14/23 Pre-op diagnosis: RIght shoulder OA Post-op diagnosis: same Procedure: Right TSA Implants: Tornier Surgeon: Joni Tucker MD Anesthesia: GETA and regional Was an Telemarketing Sales Representative used for this Procedure?: Yes Telemarketing Sales Representative: Santy Mckeon Estimated blood loss (mL): 250 IV fluids (mL): 1,500 Pathology: other Condition: stable Disposition: PACU
[2023-03-14] MEDS: ceFAZolin Sodium/Dextrose,Iso 2 GM/50 ML PIGGYBACK IV (16:07)
[2023-03-14] MEDS: 0.9 % Sodium Chloride Flush 3 ML SYRINGE IVFLUSH (16:08)
[2023-03-14] MEDS: HYDROmorphone HCl 0.5 MG/0.5 ML SYRINGE 0.25 MG IVPUSH ×2 (19:43→23:56)
[2023-03-14] MEDS: Docusate Sodium 100 MG CAPSULE PO (20:45)
[2023-03-14] MEDS: Celecoxib 200 MG CAPSULE PO (20:45)
[2023-03-14] MEDS: oxyCODONE HCl ER 10 MG TAB.ER.12H PO (20:45)
[2023-03-15] MEDS: Lactated Ringers 1,000 ML 100 ML IVCONT (01:07)
[2023-03-15 04:00] VITALS: BP 136/78; PULSE 69; RESP 16; TEMP 36; O2SAT 96
[2023-03-15] MEDS: HYDROmorphone HCl 0.5 MG/0.5 ML SYRINGE 0.25 MG IVPUSH (04:08)
[2023-03-15] MEDS: Acetaminophen 325 MG TABLET 650 MG PO (06:15)
[2023-03-15] MEDS: oxyCODONE HCl Immed Release 5 MG TABLET PO (06:15)
[2023-03-15 07:32] VITALS: BP 130/79; PULSE 74; RESP 18; TEMP 36; O2SAT 100
--- NOTE | 2023-03-15 08:21 | P.DS_ITS ---
DS: Providers Provider Date of Service: 03/15/23 Primary care physician: Deandra Boss MD DS: Summary Hospital Course Hospital Course: The patient underwent a successful right total shoulder arthroplasty with subscapularis repair, they were transferred to PACU and then to the floor to recover. During their stay, their vitals were stable, afebrile at ( ). Labs were unremarkable, H/H 13.9/43.4. POD 1 they received Physical Therapy services twice a day. Prior to discharge, their dressing was clean dry and intact and the plan was to be discharged home with VNA services. Time Attestation Discharge coordination time: Less than 30 minutes Quality: Safe Use of Opioids Does Pt have an Active Cancer Diagnosis on the Problem List?: No Quality: Stroke Does the patient have a stroke diagnosis?: No Physical Exam Vital Signs: Vital Signs: Last Vital Signs Temp 96.8 F 03/15/23 07:32 Pulse 74 03/15/23 07:32 Resp 18 03/15/23 07:32 BP 130/79 03/15/23 07:32 Pulse Ox 100 03/15/23 07:32 O2 Del Method Room Air 03/15/23 07:32 O2 Flow Rate 2 03/14/23 13:40 BMI result Body Mass Index 30.8 Const: General: cooperative, healthy appearing and no acute distress Resp: Effort & Inspection: normal respiratory effort and able to speak in complete sentences Cardio: Rate: regular rate Peripheral pulses: Peripheral pulses 2+ throughout GI: Palpation (GI): Soft to palpation Skin: Lesions: no lesions Rashes: no rashes Extrem: Other: right shoulder dressing is c/d/i. Able to make a full fist and perform thumbs up. Sensation intact. Pedal pulse intact. DS: Data Data Completed and Pending Pending studies at discharge: Pending at discharge 03/14/23 10:35 Surgical [PTH] Routine Discharge Plan Discharge Patient Disposition: Home, Self-Care Referrals: Santy Mckeon PA-C [Physician Stacker Tender] - 03/30/23 1:00 pm Discharge Medications: New acetaminophen 325 mg Tablet 650 mg PO Q6H PRN (Reason: Pain, Mild (Pain Scale 1-3)) 30 Days Qty: 240 0RF celecoxib 200 mg Capsule 200 mg PO BID 30 Days Qty: 60 0RF docusate sodium 100 mg Capsule 100 mg PO BID 30 Days Qty: 60 0RF oxycodone 5 mg Tablet 5 mg PO Q4H PRN (Reason: Pain, Moderate(Pain Scale 4-6)) 7 Days Qty: 42 0RF Rx Instructions: Partial Fill upon patient request. Discharge Orders: Discharge Order (Routine); Ordered 03/15/23 Ordered By: Iza Spivey Diet: Advance to usual diet Activity on Discharge: Use cane or walker Activity Restrictions/Additional Instructions: Wear sling at all times, including sleeping-OK to remove for pendulum exercises throughout the day No lifting-OK to move arm at elbow and wrist Do not bathe or shower - Keep dressing clean and dry Call [facility] orthopedics with any questions or concerns. Follow up with orthopedics in 7-10 days post op
[2023-03-15] MEDS: Docusate Sodium 100 MG CAPSULE PO (09:49)
[2023-03-15] MEDS: oxyCODONE HCl ER 10 MG TAB.ER.12H PO (09:49)
[2023-03-15] MEDS: Celecoxib 200 MG CAPSULE PO (09:50)
--- NOTE | 2023-03-15 10:20 | MHC.CM.PN ---
Addendum entered by Nelly Brown 03/15/23 11:54: The surgeon ordered home services with [facility]. Discharge information was sent to [facility]. Addendum entered by Nelly Brown 03/15/23 10:23: Patient is discharged home today. Original Note: IMM 03/15/23 Male 47 s/p R TSA he lives with his . He is independent with ADLS and No AD. DP home with family assist and transport.
--- NOTE | 2023-03-15 11:46 | W.MHC.F2F ---
Service Date Service Date: 03/15/23 Encounter Date of encounter: 03/15/23 Reasons for Services Signs and symptoms assessed: s/p RTSA with subscap repair. Pt. is considered homebound due to recent surgery. Unable to drive, poor balance, poor gait mechanics. Reason for occupational therapy: home safety and mobility, therapeutic exercises, restore joint function, gait/transfer training, assess need for DME and ADL training Homebound: Leaving the home is medically contraindicated at this time without the asist of a device and/or another person due th the listed conditions above and below. Reason homebound: unable to drive Certification: Based on the above findings, I certify that this patient is confined to the home and needs intermittent residential care, physical therapy and/or speech therapy, or continues to need occupational therapy. The patient is under my care, and I have initiated the establishment of the plan of care. The patient will be followed by a physician who will periodically review the plan of care. Time Spent With Patient Time: Total time managing care of this patient today ____ minutes.
--- NOTE | 2023-03-15 12:23 | HO.POSTANES ---
Post Anesthesia Evaluation Post Anesthesia Evaluation Date of Service: 03/15/23 Vital Signs: Vital Signs Temp Pulse Resp BP Pulse Ox O2 Del Method 03/15/23 07:32 96.8 F 74 18 130/79 100 Room Air 03/15/23 04:00 96.8 F 69 16 136/78 96 Room Air Anesthesia: Nerve Block and General Mental Status: Awake Pain Control: Satisfactory Nausea/Vomiting: None Hydration: Adequate Anesthesia-Related Issues: No Anes. Related Issues
--- NOTE | 2023-03-18 08:45 | W.PM.OPN ---
Operative Note Operative Note Date of Service: 03/14/23 Narrative: Date of Service: 03/14/23 Pre-op diagnosis: RIght shoulder OA Post-op diagnosis: same Procedure: Right TSA Implants: Tornier Surgeon: Joni Tucker MD Anesthesia: GETA and regional Was an Visual Merchandiser used for this Procedure?: Yes Visual Merchandiser: Santy Mckeon Estimated blood loss (mL): 250 IV fluids (mL): 1,500 Pathology: other Condition: stable Disposition: PACU Procedure in detail: Patient was brought to the operating room and placed in the beach chair position on the surgical table. The limb was prepped and draped in standard sterile fashion and a time out was called to identify proper site, proper procedure and IV antibiotics per weight were administered. I began by making a deltopectoral incision from the coracoid to the pectoralis insertion.? Blunt dissection identified the cephalic vein which was retracted laterally.? Blunt dissection was taken down to the 3 sisters which were cauterized.? I then made a full-thickness capsulotomy including the subscapularis. A 1 cm cuff was left for repair.? This was then tagged and the arm was externally rotated and extended and the head was dislocated.? The humeral head was eburnated and there was a small inferior osteophyte that was removed with an osteotome.? The RTC was intact. An anatomic head cut was made in patient's natural inclination (approximately 132 degree) .? ? I then placed my head protector and turned my attention to the glenoid.? Posterior anterior and superior glenoid retractors were placed and the biceps was tenotomized and labral tissue was removed.? Based on the preoperative CT and templating a guide pin was placed in neutral retroversion and neutral inclination.? Using a I reamer I reamed down to a stable flat glenoid circumferentially and placed the glenoid drill guide. My final glenoid was cemented in place while applying axial compression. Once the cement was dry all excess cement was removed. I then returned to the humerus where I trialed a? with a 44x15 over a 2 simplicity which matched the patient's humeral head. I was satisfied with the height and the stability. I irrigated copiously and then impacted the final implant. I was satisfied with the stability of the implants. I then irrigated and repaired the subscapularis with fiberwire.? I closed in a layered fashion with absorbable suture and mary and the patient was placed in a sterile dressing and an abduction sling.? She was extubated brought to recovery room stable condition there were no known complications.
== END 2023-03-15 12:34 | disposition home health service (06) ==
LOC: HO.SSS 06:28 → HO.S3 13:08
PROVIDERS: Nurse Practitioner Family; Physician Assistant; PCP Internal Medicine; Visit Provider Orthopaedic Surgery
PROC: (CPT 23472; principal; 2023-03-14 09:40)
DX: M19.011 Primary osteoarthritis, right shoulder (principal); M25.511 Pain in right shoulder; F10.10 Alcohol abuse, uncomplicated; G47.30 Sleep apnea, unspecified; Z99.89 Dependence on other enabling machines and devices; R73.02 Impaired glucose tolerance (oral); R07.81 Pleurodynia; Z86.018 Personal history of other benign neoplasm
CPT/HCPCS: 23472; 36415; 73020; 80048; 84443; 85025; 85610; 86850; 86900; 86901; 87640; 87641; 88304; 88311; 93005; 97166; C1713; C1776; J0131; J0690; J1100; J1170; J1885; J2371; J2405; J2704; J2795; J3010; J7120

== ENCOUNTER → 2023-03-14 06:09 | Outpatient (BNV) | payer OTHER, SELFPAY | PROVIDERS: PCP Internal Medicine; Visit Provider Orthopaedic Surgery | DX: Z47.1 Aftercare following joint replacement surgery (principal); Z96.611 Presence of right artificial shoulder joint | CPT/HCPCS: 23472; 99024; G0180 ==

== ENCOUNTER 2023-03-18 03:03 | Emergency (ER) | payer OTHER, SELFPAY ==
[2023-03-18 03:04] VITALS: BP 133/80; PULSE 84; RESP 18; TEMP 37.2; O2SAT 100; BMI 30.7
--- NOTE | 2023-03-18 03:45 | ED_ITS ---
HPI - Skin/Abscess/Foreign Bdy General Chief complaint: Skin/Abscess/Foreign Body Stated complaint: possible infection? Time Seen by Provider: 03/18/23 03:19 History of Present Illness HPI narrative: Patient is a 47-year-old male history of rotator cuff surgery on March 14. Presents today with having a rash over the area where the bandage adhesive is. Patient denies any fever chills. Denies any nausea vomiting. This sized any weakness in the finger. Denies any systemic complaints. Related Data Previous Rx's Medication Instructions Recorded acetaminophen 325 mg tablet 650 mg (2 x 325 mg) PO Q6H PRN 03/15/23 Pain, Mild (Pain Scale 1-3) 30 days #240 tabs celecoxib 200 mg capsule 200 mg PO BID 30 days #60 caps 03/15/23 docusate sodium 100 mg capsule 100 mg PO BID 30 days #60 caps 03/15/23 oxycodone 5 mg tablet 5 mg PO Q4H PRN Pain, 03/15/23 Moderate(Pain Scale 4-6) 7 days #42 tabs Allergies Allergy/AdvReac Type Severity Reaction Status Date / Time shrimp Allergy Severe throat Verified 03/18/23 03:09 swelling latex [LATEX] Allergy Intermediate ITCHING Verified 03/18/23 03:09 Penicillins [PENICILLINS] Allergy Intermediate RASH Verified 03/18/23 03:09 Review of Systems Review of Systems: Positive history of rotator cuff surgery on March 14 Yes all other systems are reviewed and are negative [facility] Past Medical History Medical History (Updated 03/18/23 @ 03:45 by Livia Nagel MD) Opacity of lung on imaging study Pleurodynia Rib pain Sleep apnea History of alcohol dependence Osteoarthritis Impaired glucose tolerance Bilateral primary osteoarthritis of knee Carpal tunnel syndrome Lumbar spondylosis Surgical History Hx of carpal tunnel repair Hx of hand surgery Hx of knee surgery Hx of knee surgery H/O right knee surgery H/O neck surgery Family History Family History Mother Diabetes mellitus Father No problems noted. Social History Social History Household Members: Spouse and Family Household Members Other:: 3 Housing: Other Housing Other:: [facility] Are you a primary lawn care professional to a significant other at home: No Do you presently have visiting nurse or other home services: No Alcohol intake: current Alcohol intake frequency: 0-2 drinks per day Alcohol type: beer and hard liquor Patient Tobacco Use Status: Never used Tobacco e-Cigarette/Vaping Use: Never Used Second Hand Smoke Exposure: No Advance Directives: Yes Advance Directives on File: Yes Advance Directives Date on File: 03/17/23 service: No Current occupational status: retired Cognitive needs: No Hearing needs: No Vision needs: No Physical Exam Vital Signs: Vital Signs: Last Vital Signs Temp 98.9 F 03/18/23 03:04 Pulse 84 03/18/23 03:04 Resp 18 03/18/23 03:04 BP 133/80 03/18/23 03:04 Pulse Ox 100 03/18/23 03:04 O2 Del Method Room Air 03/18/23 03:04 BMI result Body Mass Index 30.7 Appearance: Alert. Oriented X3. No acute distress. Eyes: Pupils equal, round and reactive to light. ENT: Pharynx normal. Neck: Normal inspection. Neck supple. No lymph nodes noted. No crepitus CVS: Normal heart rate and rhythm. Pulses normal. Normal S1 and S2 Respiratory: No respiratory distress. Breath sounds normal. No Wheezing. No rales Abdomen: Soft and nontender. No rigidity. No distention. good BS x4 Skin: Skin warm and dry. Normal skin color. Normal skin turgor. Extremities: No lower extremity edema. Neurovascular intact to all extremities. No Lacerations. No Rash Neuro: Oriented X 3. The right arm is in a shoulder immobilizer. There is a bandage right over the wound. There is areas of slight erythema raise extreme pleuritic rash right where the adhesive was located. There is no discharge noted. Medical Decision Making Medical Decision Making MDM Narrative: Question allergic reaction to the adhesive will ask patient to follow up on Monday. Benadryl for itch. There is no gross fever. There is good sensation over the distal extremity patient in no distress. Will discharge patient home reassurance given Differential Diagnosis Differential Diagnoses: The differential diagnosis associated with the presentation includes Wound infection, allergy Admission/Observation Consideration of admission/observation: Escalation of care including admission/observation considered No need for admission is patient well appearing External Record Review External record reviewed: Inpatient record Surgical record reviewed Chronic Conditions Glucose intolerance Discharge Plan Discharge Clinical Impression: Visit for wound check Patient Disposition: Home, Self-Care Instructions: Shoulder Immobilizer (ED) Additional Instructions: keep area clean. If you develop fever come back, close follow up on monday Prescriptions: No Action acetaminophen 325 mg Tablet 650 mg PO Q6H PRN (Reason: Pain, Mild (Pain Scale 1-3)) 30 Days Qty: 240 0RF celecoxib 200 mg Capsule 200 mg PO BID 30 Days Qty: 60 0RF docusate sodium 100 mg Capsule 100 mg PO BID 30 Days Qty: 60 0RF oxycodone 5 mg Tablet 5 mg PO Q4H PRN (Reason: Pain, Moderate(Pain Scale 4-6)) 7 Days Qty: 42 0RF Rx Instructions: Partial Fill upon patient request. Referrals: Joni Tucker MD [Physician] - 03/20/23
== END 2023-03-18 03:52 | disposition home or self-care (01) ==
PROVIDERS: Emergency Provider Emergency Medicine Emergency Medical Services; PCP Internal Medicine
DX: R21 Rash and other nonspecific skin eruption (principal); Z48.01 Encounter for change or removal of surgical wound dressing
CPT/HCPCS: 99282; 99284

== ENCOUNTER → 2023-03-20 08:15 | Outpatient (BNVA) | payer OTHER, SELFPAY | PROVIDERS: PCP Internal Medicine; Visit Provider Orthopaedic Surgery | DX: Z47.1 Aftercare following joint replacement surgery (principal); Z96.611 Presence of right artificial shoulder joint | CPT/HCPCS: 99212 ==

== ENCOUNTER 2023-03-20 08:16 | Outpatient (AMB) | payer OTHER, SELFPAY ==
[2023-03-20 08:34] VITALS: BMI 30.7
--- NOTE | 2023-03-20 08:34 | A.OFFVIS_ITS ---
Intake Vital Signs 03/20/23 08:34 Height 5 ft 6 in Weight 190 lb BMI 30.7 Intake Visit Reasons: PO-Rt TSA 03/14/23 NE Intake Note: Shaun is a 47 year old male who presents today s/p Right TSA 03/14/23 due to concerns of infection. Patient states that he is having rapid heat beat, rash around incision and numbness of his hands. Allergies shrimp Allergy (Severe, Verified 03/18/23 03:09) throat swelling latex [LATEX] Allergy (Intermediate, Verified 03/18/23 03:09) ITCHING Penicillins [PENICILLINS] Allergy (Intermediate, Verified 03/18/23 03:09) RASH HPI PO-Rt TSA 03/14/23 NE HPI Details 47-year-old male who returns to the [facility] today for post-op right TSA, 03/14/[address] Tucker. He states he has a rash around the incision site as well as numbness of his hands. He also c/o rapid heart beat but denies any fever or chills. He is doing well otherwise and has no other concerns today. [facility] Medical History (Updated 03/19/23 @ 00:00 by Stephanie Whitten) Opacity of lung on imaging study Pleurodynia Rib pain Sleep apnea History of alcohol dependence Osteoarthritis Impaired glucose tolerance Bilateral primary osteoarthritis of knee Carpal tunnel syndrome Lumbar spondylosis Surgical History (Updated 03/20/23 @ 09:35 by Santy Mckeon PA-C) Hx of carpal tunnel repair Hx of hand surgery Hx of knee surgery Hx of knee surgery H/O right knee surgery H/O neck surgery Family History Mother Diabetes mellitus Father No problems noted. Social History Household Members: Spouse and Family Household Members Other:: 3 Housing: Other Housing Other:: town house Are you a primary acute care occupational therapist to a significant other at home: No Do you presently have visiting nurse or other home services: No Alcohol intake: current Alcohol intake frequency: 0-2 drinks per day Alcohol type: beer and hard liquor Patient Tobacco Use Status: Never used Tobacco e-Cigarette/Vaping Use: Never Used Second Hand Smoke Exposure: No Advance Directives Date on File: 03/17/23 service: No Current occupational status: retired Cognitive needs: No Hearing needs: No Vision needs: No Review of Systems Const All systems reviewed & are unremarkable except as noted in HPI and below Physical Exam Vital Signs: BMI result Body Mass Index 30.7 Const General: no acute distress, alert and awake Orientation/consciousness: patient oriented x3 HEENT Head: Yes normocephalic and Yes atraumatic Eyes EOM: EOMs intact bilaterally Resp Effort & Inspection: normal respiratory effort and able to speak in complete sentences Cardio Jugular venous distension: no JVD Skin General skin exam: turgor normal Rashes: no rashes Neuro General: patient oriented x3 Extrem Other: Right shoulder: Incision clean, dry and intact. No drainage from the incision site. He does have a slightly raised erythematous rash around the incision site from the adhesive bandage. NVI. Psych Appearance: grossly normal Affect: normal affect Attitude: cooperative Assessment & Plan Assessment & Plan (1) H/O total shoulder replacement: Code(s): Z96.619 - Presence of unspecified artificial shoulder joint Qualifiers: Laterality: right Qualified Code(s): Z96.611 - Presence of right artificial shoulder joint Plan Skin was cleaned with chloraprep and an adhesive tape remover and an acticoat type dressing was applied which he states he has not had a reaction before. I did send him a prescription of hydroxyzine to his pharmacy to help with his rash type symptoms. Medications: New hydroxyzine HCl 10 mg PO Q8H 7 days PRN 21 tabs 0RF itching Coding Level of Care Code Global (43559) Diagnoses History of total replacement of right shoulder joint Z96.611 Laterality: right
== END 2023-03-20 09:18 | disposition home or self-care (01) ==
PROVIDERS: PCP Internal Medicine; Visit Provider Physician Assistant
DX: Z96.611 Presence of right artificial shoulder joint (principal)
CPT/HCPCS: 99024

== ENCOUNTER 2023-03-23 10:46 | Outpatient (AMB) | payer OTHER, SELFPAY ==
--- NOTE | 2023-03-23 11:06 | MHC.OFFVIS ---
Intake Vital Signs 03/23/23 11:09 Height 5 ft 6 in Weight 190 lb BMI 30.7 Intake Visit Reasons: PO-Rt TSA 03/14/23 NE Intake Note: Shaun is a 47 year old male who presents today for his P/O Right TSA 03/14/23. States he is doing a little today. States he has mild pain and discomfort. Allergies shrimp Allergy (Severe, Verified 03/23/23 11:09) throat swelling latex [LATEX] Allergy (Intermediate, Verified 03/23/23 11:09) ITCHING Penicillins [PENICILLINS] Allergy (Intermediate, Verified 03/23/23 11:09) RASH HPI PO-Rt TSA 03/14/23 NE HPI Details 47-year-old male who returns to the office today for post-op right TSA, 03/14/[address] Tucker. He continues to have mild pain and discomfort in his shoulder but is doing well overall. He is doing well otherwise and has no concerns today. [facility] Medical History (Updated 03/19/23 @ 00:00 by Stephanie Whitten) Opacity of lung on imaging study Pleurodynia Rib pain Sleep apnea History of alcohol dependence Osteoarthritis Impaired glucose tolerance Bilateral primary osteoarthritis of knee Carpal tunnel syndrome Lumbar spondylosis Surgical History (Updated 03/20/23 @ 09:35 by Santy Mckeon PA-C) Hx of carpal tunnel repair Hx of hand surgery Hx of knee surgery Hx of knee surgery H/O right knee surgery H/O neck surgery Family History Mother Diabetes mellitus Father No problems noted. Social History Household Members: Spouse and Family Household Members Other:: 3 Housing: Other Housing Other:: town house Are you a primary patient centered care specialist to a significant other at home: No Do you presently have visiting nurse or other home services: No Alcohol intake: current Alcohol intake frequency: 0-2 drinks per day Alcohol type: beer and hard liquor Patient Tobacco Use Status: Never used Tobacco e-Cigarette/Vaping Use: Never Used Second Hand Smoke Exposure: No Advance Directives Date on File: 03/17/23 service: No Current occupational status: retired Cognitive needs: No Hearing needs: No Vision needs: No Review of Systems Const All systems reviewed & are unremarkable except as noted in HPI and below Physical Exam Vital Signs: BMI result Body Mass Index 30.7 Extrem Other: Right shoulder: Incision clean, dry and intact. He does have some redness along the skin where bandage was placed. No blisters or open wounds. Assessment & Plan Assessment & Plan (1) H/O total shoulder replacement: Code(s): Z96.619 - Presence of unspecified artificial shoulder joint Qualifiers: Laterality: right Qualified Code(s): Z96.611 - Presence of right artificial shoulder joint Plan Incision was cleaned and skin was cleaned. A new sliver acticoat dressing was applied. Patient Instructions: Scribed for Santy Mckeon PA-C, by Arturo Rodriguez clinical medical assistant, on 03/23/2023 at 10:45 AM EST. ISanty PA-C, have personally reviewed and agree with the information entered by the scribe. Coding Level of Care Code Global (45577) Diagnoses History of total replacement of right shoulder joint Z96.611 Laterality: right
[2023-03-23 11:09] VITALS: BMI 30.7
== END 2023-03-23 11:29 | disposition home or self-care (01) ==
PROVIDERS: PCP Internal Medicine; Visit Provider Physician Assistant
DX: Z96.611 Presence of right artificial shoulder joint (principal)
CPT/HCPCS: 99024

== ENCOUNTER → 2023-03-23 10:46 | Outpatient (BNVA) | payer OTHER, SELFPAY | PROVIDERS: PCP Internal Medicine; Visit Provider Physician Assistant | DX: Z47.1 Aftercare following joint replacement surgery (principal); Z96.611 Presence of right artificial shoulder joint | CPT/HCPCS: 99212 ==

== ENCOUNTER 2023-03-25 10:17 | Emergency (ER) | payer OTHER, SELFPAY ==
[2023-03-25 10:20] VITALS: BP 132/71; PULSE 78; RESP 16; TEMP 37.1; O2SAT 99; BMI 31.1
[2023-03-25 11:16] VITALS: BP 123/65; PULSE 82; RESP 14; TEMP 36.9; O2SAT 97
--- NOTE | 2023-03-25 11:23 | ED.GENADULT ---
HPI - General Adult General Chief complaint: Allergic Reaction Stated complaint: rash eyes and ears Time Seen by Provider: 03/25/23 10:30 Source: patient Mode of arrival: ambulatory Limitations: no limitations History of Present Illness HPI narrative: Patient is a 47-year-old male presenting to the emergency department with complaint of pruritic rash to face and right arm following shoulder surgery on 03/14. Patient has been taking oxycodone, celecoxib, and Tylenol for his postsurgical pain. Saw Ortho on 03/20 and was prescribed hydroxyzine which he has been taking as needed. Also had follow-up with Ortho on 03/23 and has additional follow-up appointment scheduled on 03/30. He states that he recently changed his Aquacel dressing over his surgical site and noted a small amount of blood on the dressing. Denies any ongoing bleeding or drainage. Denies fevers. Denies any increased pain to surgical site. Has been using hydroxyzine for itching with little relief. Denies any shortness of breath or difficulty breathing, swelling to lips or tongue. MD complaint: rash Onset (ago): day(s) Location: face, right and upper extremity Radiation: non-radiation Quality: other (pruritic) Associated symptoms: denies other symptoms Treatments prior to arrival: other Related Data Previous Rx's Medication Instructions Recorded acetaminophen 325 mg tablet 650 mg (2 x 325 mg) PO Q6H PRN 03/15/23 Pain, Mild (Pain Scale 1-3) 30 days #240 tabs celecoxib 200 mg capsule 200 mg PO BID 30 days #60 caps 03/15/23 docusate sodium 100 mg capsule 100 mg PO BID 30 days #60 caps 03/15/23 oxycodone 5 mg tablet 5 mg PO Q4H PRN Pain, 03/15/23 Moderate(Pain Scale 4-6) 7 days #42 tabs hydroxyzine HCl 10 mg tablet 10 mg PO Q8H PRN itching 7 days 03/20/23 #21 tabs betamethasone valerate 0.1 % 1 appl topical BID PRN itching #15 03/25/23 topical cream grams triamcinolone acetonide 0.1 % 1 appl topical BID #15 grams 03/25/23 topical cream Allergies Allergy/AdvReac Type Severity Reaction Status Date / Time shrimp Allergy Severe throat Verified 03/25/23 10:24 swelling latex [LATEX] Allergy Intermediate ITCHING Verified 03/25/23 10:24 Penicillins [PENICILLINS] Allergy Intermediate RASH Verified 03/25/23 10:24 Review of Systems Review of Systems: As per HPI. Yes all other systems are reviewed and are negative Constitutional: Constitutional: Reports as per HPI [facility] Past Medical History Medical History (Updated 03/25/23 @ 11:48 by Sujata Wells NP) Opacity of lung on imaging study Pleurodynia Rib pain Sleep apnea History of alcohol dependence Osteoarthritis Impaired glucose tolerance Bilateral primary osteoarthritis of knee Carpal tunnel syndrome Lumbar spondylosis Surgical History (Updated 03/20/23 @ 09:35 by Santy Mckeon PA-C) Hx of carpal tunnel repair Hx of hand surgery Hx of knee surgery Hx of knee surgery H/O right knee surgery H/O neck surgery Family History Family History Mother Diabetes mellitus Father No problems noted. Social History Social History Household Members: Spouse and Family Household Members Other:: 3 Housing: Other Housing Other:: [facility] house Are you a primary neonatal intensive care unit nurse to a significant other at home: No Do you presently have visiting nurse or other home services: No Alcohol intake: current Alcohol intake frequency: 0-2 drinks per day Alcohol type: beer and hard liquor Patient Tobacco Use Status: Never used Tobacco e-Cigarette/Vaping Use: Never Used Second Hand Smoke Exposure: No Advance Directives: Yes Advance Directives on File: Yes Advance Directives Date on File: 03/17/23 service: No Current occupational status: retired Cognitive needs: No Hearing needs: No Vision needs: No Physical Exam ED Vital Signs: Vital Signs - 24 hr 03/25/23 10:20 03/25/23 11:16 Temperature 98.8 F 98.5 F Pulse Rate 78 82 Respiratory Rate 16 14 Blood Pressure 132/71 123/65 Pulse Oximetry 99 97 Oxygen Delivery Method Room Air Room Air BMI result Body Mass Index 31.1 Vital signs have been reviewed and appear to be correct. Blood pressure normal. Heart rate normal. Respiratory rate normal. Temperature normal. Oxygen saturation normal. Const General: cooperative, healthy appearing and no acute distress Orientation/consciousness: oriented to person, oriented to place, oriented to time and patient oriented x3 Limitations: no limitations HENMT Head: Yes normocephalic and Yes atraumatic Ears: external ears normal General nose exam: Normal external nose present Face and sinus: Yes face symmetric Mouth: Normal oral and palatal mucosa present, lip normal, tongue normal, oropharynx normal, moist mucous membranes and no drooling Throat: Yes posterior oropharynx normal, Yes tonsils normal, Yes uvula midline and No uvular edema Eyes Pupils: Equal, round and reactive pupils present Neck Neck: Yes normal visual inspection and Yes supple Resp Effort & Inspection: normal respiratory effort and able to speak in complete sentences Auscultation: clear to auscultation bilaterally Cardio Rate: regular rate Rhythm: regular rhythm Heart sounds: S1 normal heart sound present and S2 normal heart sound present GI Palpation (GI): Soft to palpation and nontender Auscultation: normoactive bowel sounds General: Yes no CVA tenderness Back/Spine/Pelvis Back: no CVA tenderness Skin Other: fine maculopapular erythematous rash to right upper extremity, aquacell dressing in place R anterior shoulder, no calor, no fluctuance, no drainage from dressing General skin exam: elasticity normal and turgor normal Neuro General: oriented to person, oriented to place, oriented to time, patient oriented x3, moves all extremities, no focal motor deficits and CN's II-XI intact bilaterally Cranial nerves: Yes Equal, round and reactive pupils present Cognition (Neuro): normal cognition Extrem General: Yes full ROM, Yes no pedal edema and Yes no calf tenderness Right upper extremity: shoulder/upper arm (aquacell dressing anterior shoulder) and Extremity exam: right hand Details: vascular exam Details: radial pulse present Psych Mental Status: mental status grossly normal Affect: normal affect Thought process: Normal thought process present Medical Decision Making Medical Decision Making MDM Narrative: Patient is a 47-year-old male presenting to the emergency department with complaint of pruritic rash to face and right arm following shoulder surgery on 03/14. On exam patient is awake, A+Ox3, VS WNL, afebrile, normal neurological exam without focal deficits, physical exam findings as above. Given reported symptoms and physical exam findings, initial differential includes adverse medication reaction, allergy to post-op dressing, contact dermatitis. Advised patient to discuss pain management with ortho, as his symptoms could be related to the oxycodone or celecoxib, though feel more likely related to dressing as rash is primarily localized to right arm. Will prescribe topical triamcinolone cream for arm and betamethasone for face. Instructed patient to follow up with ortho, continue using hydroxyzine as prescribed. Return precautions discussed at bedside. Patient verbalized understanding of and agreement with plan. Differential Diagnosis Differential Diagnoses: The differential diagnosis associated with the presentation includes As per [facility] External Record Review External record reviewed: Inpatient record, Office record and Outpatient record Prescription Management I considered prescription management with: Other Discharge Plan Discharge Clinical Impression: Rash and nonspecific skin eruption Patient Disposition: Home, Self-Care Instructions: Contact Dermatitis (DC), Acute Rash (ED) Additional Instructions: You were evaluated in the emergency department today for rash. It is possible this rash is related to your medications or post-operative dressing. Please follow up with orthopedics. You can continue to use hydroxyzine as needed for itching. You are being prescribed topical creams which you can use twice daily for itching. DO NOT use the triamcinolone on your face. Return to the emergency department if you develop difficulty breathing or shortness of breath, swelling to your lips or tongue, fever, thick yellow drainage from your surgical wound or any other concerning symptoms. Prescriptions: New triamcinolone acetonide 0.1 % cream 1 appl topical BID Qty: 15 0RF betamethasone valerate 0.1 % cream 1 appl topical BID PRN (Reason: itching) Qty: 15 0RF Rx Instructions: For FACE No Action acetaminophen 325 mg Tablet 650 mg PO Q6H PRN (Reason: Pain, Mild (Pain Scale 1-3)) 30 Days Qty: 240 0RF celecoxib 200 mg Capsule 200 mg PO BID 30 Days Qty: 60 0RF docusate sodium 100 mg Capsule 100 mg PO BID 30 Days Qty: 60 0RF oxycodone 5 mg Tablet 5 mg PO Q4H PRN (Reason: Pain, Moderate(Pain Scale 4-6)) 7 Days Qty: 42 0RF Rx Instructions: Partial Fill upon patient request. hydroxyzine HCl 10 mg tablet 10 mg PO Q8H PRN (Reason: itching) 7 Days Qty: 21 0RF
== END 2023-03-25 12:00 | disposition home or self-care (01) ==
PROVIDERS: Emergency Provider Student in an Organized Health Care Education/Training Program; PCP Internal Medicine
DX: R21 Rash and other nonspecific skin eruption (principal)
CPT/HCPCS: 99283

== ENCOUNTER 2023-03-28 10:46 | Outpatient (AMB) | payer OTHER, SELFPAY ==
[2023-03-28 10:50] VITALS: BMI 31.0
--- NOTE | 2023-03-28 10:50 | A.OFFVIS_ITS ---
Intake Vital Signs 03/28/23 10:50 Height 5 ft 6 in Weight 192 lb BMI 31.0 Intake Visit Reasons: PO-Rt TSA 03/14/23 NE Intake Note: Shaun andrade 47 year old male presents today for a post operative wound check s/p right TSA, DOS 03/14/23 NE. Patient reports redness and itching around his bandage, eyes, and ears. States pain in his elbow since surgery. Allergies shrimp Allergy (Severe, Verified 03/28/23 10:56) throat swelling latex [LATEX] Allergy (Intermediate, Verified 03/28/23 10:56) ITCHING Penicillins [PENICILLINS] Allergy (Intermediate, Verified 03/28/23 10:56) RASH Medication List - Last Reconciled 03/28/23 by Santy Mckeon PA-C acetaminophen 650 mg (2 x 325 mg) PO Q6H PRN 30 days betamethasone valerate 0.1% 1 appl topical BID PRN celecoxib 200 mg PO BID 30 days docusate sodium 100 mg PO BID 30 days hydrocodone-acetaminophen 5-325 mg 1 tab PO Q6H PRN 7 days hydroxyzine HCl 10 mg PO Q8H PRN 7 days triamcinolone acetonide 0.1% 1 appl topical BID HPI PO-Rt TSA 03/14/23 NE HPI Details 47-year-old male who returns to the [facility] today for post-op right TSA, 03/14/[address] Tucker. He states he has itching around his bandage, eyes and ears. He also c/o pain in his elbow since surgery. He is doing well otherwise and has no other concerns today. [facility] Medical History (Updated 03/26/23 @ 00:01 by Stephanie Whitten) Opacity of lung on imaging study Pleurodynia Rib pain Sleep apnea History of alcohol dependence Osteoarthritis Impaired glucose tolerance Bilateral primary osteoarthritis of knee Carpal tunnel syndrome Lumbar spondylosis Surgical History Hx of carpal tunnel repair Hx of hand surgery Hx of knee surgery Hx of knee surgery H/O right knee surgery H/O neck surgery Family History Mother Diabetes mellitus Father No problems noted. Social History Household Members: Spouse and Family Household Members Other:: 3 Housing: Other Housing Other:: town house Are you a primary care navigator to a significant other at home: No Do you presently have visiting nurse or other home services: No Alcohol intake: current Alcohol intake frequency: 0-2 drinks per day Alcohol type: beer and hard liquor Patient Tobacco Use Status: Never used Tobacco e-Cigarette/Vaping Use: Never Used Second Hand Smoke Exposure: No Advance Directives Date on File: 03/17/23 service: No Current occupational status: retired Cognitive needs: No Hearing needs: No Vision needs: No Review of Systems Const All systems reviewed & are unremarkable except as noted in HPI and below Physical Exam Vital Signs: BMI result Body Mass Index 31.0 Extrem Other: Right shoulder: Incision clean, dry and intact. He continues to have irritation on the incision due to adhesive. Assessment & Plan Assessment & Plan (1) H/O total shoulder replacement: Code(s): Z96.619 - Presence of unspecified artificial shoulder joint Qualifiers: Laterality: right Qualified Code(s): Z96.611 - Presence of right artificial shoulder joint Plan Josh were removed today, steri strips applied. The incision was cleaned with betadine and benzoine preparation was applied to the outside of the steri strip to allow for a stronger adhesive. I stressed the importance of keeping the area clean and dry. He sweats a lot which causes moisture along the incision. My hope is that with removing the josh and applying the steri strips will allow the skin to breathe for healing. He will come in after 1 week for a skin check with Dr. Tcuker. If he has any redness, drainage or concerns, he will contact sooner. I did change his pain medication to Vicodin to see if this helps with his itching and swollen eyes. Medications: New hydrocodone-acetaminophen 5-325 mg Partial Fill upon patient request. 1 tab PO Q6H PRN 28 tabs 0RF pain 7 days Discontinued oxycodone Partial Fill upon patient request. Discontinued Reason: Doctor's Order 5 mg PO Q4H PRN 42 tabs 0RF Pain, Moderate(Pain Scale 4-6) 7 days Patient Instructions: Scribed for Santy Mckeon PA-C, by Arturo Rodriguez emergency medical technician/driver, on 03/28/2023 at 11:00 AM Santy BARNETT PA-C, have personally reviewed and agree with the information entered by the scribe. Coding Level of Care Code Global (59380) Diagnoses History of total replacement of right shoulder joint Z96.611 Laterality: right
== END 2023-03-28 11:23 | disposition home or self-care (01) ==
LOC: HO.HOS 10:46
PROVIDERS: PCP Internal Medicine; Visit Provider Physician Assistant
DX: Z96.611 Presence of right artificial shoulder joint (principal)
CPT/HCPCS: 99024

== ENCOUNTER → 2023-03-28 10:46 | Outpatient (BNVA) | payer OTHER, SELFPAY | PROVIDERS: PCP Internal Medicine; Visit Provider Physician Assistant | DX: Z47.1 Aftercare following joint replacement surgery (principal); Z96.611 Presence of right artificial shoulder joint | CPT/HCPCS: 99212 ==

== ENCOUNTER 2023-04-07 11:23 | Outpatient (AMB) | payer OTHER, SELFPAY ==
--- NOTE | 2023-04-07 11:29 | MHC.OFFVIS ---
Intake Vital Signs 04/07/23 11:30 Height 5 ft 6 in Weight 192 lb BMI 31.0 Intake Visit Reasons: PO-Rt TSA 03/14/23 NE Intake Note: Shaun is a 47 year old right hand dominant male who presents today for a post operative visit s/p Right TSA 03/14/23. Patient reports that he is doing well with no concerns Allergies shrimp Allergy (Severe, Verified 04/07/23 11:31) throat swelling latex [LATEX] Allergy (Intermediate, Verified 04/07/23 11:31) ITCHING Penicillins [PENICILLINS] Allergy (Intermediate, Verified 04/07/23 11:31) RASH HPI PO-Rt TSA 03/14/23 NE HPI Details Shaun is a 47 year old man who presents for a wound check S/P right TSA, DOS: 03/14/23. He says he is feeling better today. He has not started outpatient PT. [facility] Medical History Opacity of lung on imaging study Pleurodynia Rib pain Sleep apnea History of alcohol dependence Osteoarthritis Impaired glucose tolerance Bilateral primary osteoarthritis of knee Carpal tunnel syndrome Lumbar spondylosis Surgical History Hx of carpal tunnel repair Hx of hand surgery Hx of knee surgery Hx of knee surgery H/O right knee surgery H/O neck surgery Family History Mother Diabetes mellitus Father No problems noted. Social History Household Members: Spouse and Family Household Members Other:: 3 Housing: Other Housing Other:: town house Are you a primary critical care rn to a significant other at home: No Do you presently have visiting nurse or other home services: No Alcohol intake: current Alcohol intake frequency: 0-2 drinks per day Alcohol type: beer and hard liquor Patient Tobacco Use Status: Never used Tobacco e-Cigarette/Vaping Use: Never Used Second Hand Smoke Exposure: No Advance Directives Date on File: 03/17/23 service: No Current occupational status: retired Cognitive needs: No Hearing needs: No Vision needs: No Review of Systems Const All systems reviewed & are unremarkable except as noted in HPI and below Physical Exam Vital Signs: BMI result Body Mass Index 31.0 Const General: no acute distress, alert and awake Orientation/consciousness: patient oriented x3 HEENT Head: Yes normocephalic and Yes atraumatic Eyes EOM: EOMs intact bilaterally Resp Effort & Inspection: normal respiratory effort and able to speak in complete sentences Cardio Jugular venous distension: no JVD Skin General skin exam: turgor normal Rashes: no rashes Neuro General: patient oriented x3 Extrem Other: inc c/d/i 75 abd 20 ER Psych Appearance: grossly normal Affect: normal affect Attitude: cooperative Assessment & Plan Assessment & Plan (1) H/O total shoulder replacement: Code(s): Z96.619 - Presence of unspecified artificial shoulder joint Qualifiers: Laterality: right Qualified Code(s): Z96.611 - Presence of right artificial shoulder joint Plan: Outpatient PT Wean narcotics May d/c sling at home but should use when out of house Plan Scribed for Joni Tucker MD by Giorgi Borrego, medical corps officer, on 04/07/23 at 11:35 AM, EST. Orders: Orders PT Evaluation and Treatment 04/07/23 Z96.619 - Presence of unspecified artificial shoulder joint Coding Level of Care Code Global (97493) Diagnoses History of total replacement of right shoulder joint Z96.611 Laterality: right
[2023-04-07 11:30] VITALS: BMI 31.0
== END 2023-04-07 12:08 | disposition home or self-care (01) ==
PROVIDERS: PCP Internal Medicine; Visit Provider Orthopaedic Surgery
DX: Z96.611 Presence of right artificial shoulder joint (principal)
CPT/HCPCS: 99024

== ENCOUNTER → 2023-04-07 11:23 | Outpatient (BNVA) | payer OTHER, SELFPAY | PROVIDERS: PCP Internal Medicine; Visit Provider Orthopaedic Surgery | DX: Z47.1 Aftercare following joint replacement surgery (principal); Z96.611 Presence of right artificial shoulder joint | CPT/HCPCS: 99212 ==

== ENCOUNTER 2023-04-20 08:41 | Outpatient (AMB) | payer OTHER, SELFPAY ==
--- NOTE | 2023-04-20 07:48 | MHC.OFFVIS ---
Intake Intake Visit Reasons: PO-Rt TSA 03/14/23 NE wound check Intake Note: This is a 47 year old male that presents for a right TSA 03/14/23 with NE for a wound check. He reports about 6 days ago bump on his right shoulder. He then popped it and clear liquid and blood came out, the area is open to air. His pain is minimal. Allergies shrimp Allergy (Severe, Verified 04/20/23 08:49) throat swelling latex [LATEX] Allergy (Intermediate, Verified 04/20/23 08:49) ITCHING Penicillins [PENICILLINS] Allergy (Intermediate, Verified 04/20/23 08:49) RASH Medication List - Last Reconciled 04/20/23 by Haylee Foster RN acetaminophen 650 mg (2 x 325 mg) PO Q6H PRN 30 days betamethasone valerate 0.1% 1 appl topical BID PRN celecoxib 200 mg PO BID 30 days docusate sodium 100 mg PO BID 30 days hydrocodone-acetaminophen 5-325 mg 1 tab PO Q6H PRN 7 days hydroxyzine HCl 10 mg PO Q8H PRN 7 days triamcinolone acetonide 0.1% 1 appl topical BID HPI PO-Rt TSA 03/14/23 NE wound check HPI Details Shaun is a 47 year old man who returns ~5 weeks S/P right TSA. He says he is doing well but he is concerned over a mass that developed on his shoulder last week. He says on ~04/14 he had a fluid filled mass that eveloped near his incision, when he popped this, it ruptured and drained a mix of blood & clear fluid out. He says his current pain is minimal and he denies any fever or chills. He has transitioned to outpatient PT and continues to wear his sling. [facility] Medical History Opacity of lung on imaging study Pleurodynia Rib pain Sleep apnea History of alcohol dependence Osteoarthritis Impaired glucose tolerance Bilateral primary osteoarthritis of knee Carpal tunnel syndrome Lumbar spondylosis Surgical History Hx of carpal tunnel repair Hx of hand surgery Hx of knee surgery Hx of knee surgery H/O right knee surgery H/O neck surgery Family History Mother Diabetes mellitus Father No problems noted. Social History Household Members: Spouse and Family Household Members Other:: 3 Housing: Other Housing Other:: [facility] house Are you a primary animal care service worker to a significant other at home: No Do you presently have visiting nurse or other home services: No Alcohol intake: current Alcohol intake frequency: 0-2 drinks per day Alcohol type: beer and hard liquor Patient Tobacco Use Status: Never used Tobacco e-Cigarette/Vaping Use: Never Used Second Hand Smoke Exposure: No Advance Directives Date on File: 03/17/23 service: No Current occupational status: retired Cognitive needs: No Hearing needs: No Vision needs: No Review of Systems Const All systems reviewed & are unremarkable except as noted in HPI and below Physical Exam Const General: no acute distress, alert and awake Orientation/consciousness: patient oriented x3 HEENT Head: Yes normocephalic and Yes atraumatic Eyes EOM: EOMs intact bilaterally Resp Effort & Inspection: normal respiratory effort and able to speak in complete sentences Cardio Jugular venous distension: no JVD Skin General skin exam: turgor normal Rashes: no rashes Neuro General: patient oriented x3 Extrem Other: 35 deg ER neg lift off 70 deg of abduction sans recruitment Psych Appearance: grossly normal Affect: normal affect Attitude: cooperative Assessment & Plan Assessment & Plan (1) H/O total shoulder replacement: Code(s): Z96.619 - Presence of unspecified artificial shoulder joint Qualifiers: Laterality: right Qualified Code(s): Z96.611 - Presence of right artificial shoulder joint Plan: Continue PT as per protocol May wean sling f/u 6 weeks Plan Prepared for Joni Tucker MD by Giorgi Borrego, biomedical equipment support specialist, on 04/20/23 at 1:52 PM, EST. Coding Level of Care Code Global (30258) Diagnoses History of total replacement of right shoulder joint Z96.611 Laterality: right
== END 2023-04-20 09:00 | disposition home or self-care (01) ==
PROVIDERS: PCP Internal Medicine; Visit Provider Orthopaedic Surgery
DX: Z96.611 Presence of right artificial shoulder joint (principal)
CPT/HCPCS: 99024

== ENCOUNTER → 2023-04-20 08:41 | Outpatient (BNVA) | payer OTHER, SELFPAY | PROVIDERS: PCP Internal Medicine; Visit Provider Orthopaedic Surgery | DX: Z47.1 Aftercare following joint replacement surgery (principal); Z96.611 Presence of right artificial shoulder joint | CPT/HCPCS: 99212 ==

== ENCOUNTER 2023-05-08 09:00 | Outpatient (RCR) | payer OTHER, SELFPAY ==
--- NOTE | 2023-04-13 13:46 | MHC.PT.EP ---
[facility] [place] Office [place] Office [place] [facility] [address] Juan Patton [address] [phone] F: [phone] F: [phone] F: [phone] F: [phone] Physical Therapy Plan of Care Date of Evaluation: 04/13/23 Date of Surgery: 03/14/23 Diagnosis: S/P Rt TSA Assessment: 47 YO MALE REF TO PT S/P Rt TSA (W SUBSCAPULARIS REPAIR) ON 03/14/23- HE IS Rt HAND DOMINANT AND PER Pt HE IS OOW DUE TO BEING DISABLED. OBJECTIVE FINDINGS: DECR POSTURAL AWARENESS, HEALING Rt ANT SH SCAR, LIMITED ROM (PER PROTOCOL), DECR SCAP MM ACTIV/POSTERIOR RC STRENGHT DEFICIT, AND PAIN IN GENERAL Rt SH COMPLEX. FUNCTIONALLY, IN HIS POST -OP COURSE, THE Pt WAS IMMOB UNTIL 04/07/23 WHEN CLEARED TO WEAN WHILE INSIDE HIS HOME - HE IS LIMITED W ADLs REQ MARYSOL UEs/ CARRYING, ETC. HE WOULD BENEFIT FROM POST-OP PT TO ADDRESS THE ABOVE DOMINANT UE DEFICITS AND ASSIST Pt IN MEETING HIS POST-OP GOALS PER PROTOCOL. Frequency and Duration: The patient will be seen 2 x WK x 10 WKS Short Term Goals: *INCREASE PROM-> AAROM -> AROM Rt SH PER ADVANCED CEU PROTOCOL *DECR Rt SH PAIN TO 2-3/10 *Pt INDEP W POSTURAL SELF-CORRECTION *MONITOR Rt ANT GH SCAR MOB Bodily Injury Adjuster Goals: *WFL DYNAMIC STABILIZATION AND STRENGTH Rt SH COMPLEX (PROGRESS PER ADVANTAGE CEUS) *Pt ABLE TO PERFORM REG ADLs/ INCR ACTIVITY EVIDENT W IMPROVED SPADI SCORE Treatment Plan: Modalities to reduce pain, spasms and effusion. Manual therapy to restore motion and function. Therapeutic exercise to improve strength and flexibility. Neuromuscular re-education for posture and balance. Therapeutic activities to return to functional activities of daily living. Electronically signed by: GREG PEARCE, PT Please sign and return to therapist. Thank you for your referral.
--- NOTE | 2023-06-06 08:26 | MHC.PT.DC ---
[facility] [place] Office [place] Office [place] Office [address] Juan Patton [address] [phone] F: [phone] F: [phone] F: [phone] F: [phone] Physical Therapy Discharge Report Diagnosis: S/P Rt TSA Date of Surgery: 03/14/23 Date of Evaluation: 04/13/23 Date of Discharge: 06/06/23 Treatments to Date: 6 Cancellations to Date: 7 No Shows to Date: 4 Discharge Status: Improved Function Patient Elected to Stop Recommend MD Follow-up Visit Non-compliance Discharge Summary: LADY WAS PROGRESSING WELL AND MET HIS PT GOALS THUS FAR PER TSA PROTOCOL. HIS ATTENDANCE DECREASED NOTED ABOVE- DESPITE ATTEMPTS TO CONTACT HIM. HE APPEARED MOTIVATED AND HE DENIED ANY PAIN IN THE LAST ATTENDED PT APPTS. HE IS D/C THIS DATE DUE TO POOR ATTENDANCE. Electronically signed by: GREG PEARCE,PT Please sign and return to therapist. Thank you for your referral.
== END 2023-06-06 08:26 | disposition home or self-care (01) ==
LOC: HO.PT 09:00
PROVIDERS: PCP Internal Medicine; Visit Provider Orthopaedic Surgery
DX: Z96.611 Presence of right artificial shoulder joint (principal)
CPT/HCPCS: 97110; 97140; 97162

== ENCOUNTER 2023-06-13 09:53 | Emergency (ER) | payer OTHER, SELFPAY ==
[2023-06-13 10:15] VITALS: BP 144/83; PULSE 91; RESP 18; TEMP 36.6; O2SAT 97; BMI 32.6
== END 2023-06-13 16:51 | disposition left against medical advice (07) ==
LOC: HO.ED 16:13
PROVIDERS: Emergency Provider Emergency Medicine; PCP Internal Medicine
DX: M54.50 Low back pain, unspecified (principal)
CPT/HCPCS: 99281

== ENCOUNTER 2023-08-27 08:18 | Emergency (ER) | payer OTHER, SELFPAY ==
--- NOTE | ~2023-08-27 | XR_ITS ---
EXAMINATION: XR SHOULDER, RIGHT CLINICAL INFORMATION: Pain COMPARISON: 2022 TECHNIQUE: AP external rotation, Grashey, scapular Y, and axillary views of the right shoulder. FINDINGS: Right shoulder prosthesis in place properly articulating with the glenoid process. No fractures. Adjacent ribs, clavicle, AC joint and included lungs are clear. XR/XR shoulder RT min 2V IMPRESSION: Right shoulder prosthesis in place properly articulating with the glenoid process.
--- NOTE | ~2023-08-27 | XR_ITS ---
EXAMINATION: XR CHEST CLINICAL INFORMATION: Right-sided chest pain COMPARISON: None available. TECHNIQUE: Frontal view of the chest was obtained. FINDINGS: No significant abnormality is noted involving the heart, lungs, mediastinum, bony thorax or soft tissues. XR/XR chest 1V IMPRESSION: No radiographic evidence of acute cardiopulmonary disease.
--- NOTE | 2023-08-27 08:28 | ECG_ITS ---
Test Reason : CHEST PAIN Blood Pressure : / mmHG Vent. Rate : 066 BPM Atrial Rate : 066 BPM P-R Int : 138 ms QRS Dur : 106 ms QT Int : 372 ms P-R-T Axes : 057 -04 -10 degrees QTc Int : 389 ms Normal sinus rhythm Moderate voltage criteria for LVH, may be normal variant ( R in aVL , [place] product ) Nonspecific ST abnormality Abnormal ECG When compared with ECG of 07-MAR-2023 12:53, No significant change was found Referred By: Generic ED Physician Electronically Signed By:Mike He
[2023-08-27 08:29] VITALS: BP 142/85; PULSE 74; RESP 16; TEMP 37.1; O2SAT 98; BMI 32.0
[2023-08-27 08:57] LABS: MANUAL DIFF FLAG NO
[2023-08-27 08:59] LABS: Basophils Percent Auto 0.6 % (0-2); Eosinophils Absolute Auto 0.4 X10*3/uL (0.0-0.4); Eosinophils Percent Auto 7.1 % (0-4); Hematocrit 41.4 % (42.0-52.0); Hemoglobin 13.6 g/dl (14.0-18.0); Imm Gran Abs Auto 0.01 X10*3/uL (0.00-0.03); Imm Gran Pct Auto 0.2 % (0.0-0.4); Lymphocytes Absolute Auto 1.7 X10*3/uL (1.2-4.9); Lymphocytes Percent Auto 26.7 % (20-40); Mean Corpuscular HGB Conc 32.9 g/dl (31.0-36.0); Mean Corpuscular Hemoglobin 26.9 pg (27.0-33.0); Mean Platelet Volume 10.3 fL (9.4-12.4); Monocytes Absolute Auto 0.5 X10*3/uL (0.1-1.2); Monocytes Percent Auto 7.9 % (2-11); Neutrophils Absolute Auto 3.6 x10*3/uL (2.0-8.3); Neutrophils Percent Auto 57.5 % (45-73); Platelet Count 311 X10*3/uL (160-400); Red Blood Count 5.05 X10*6/uL (4.60-5.80); White Blood Count 6.2 X10*3/uL (4.8-10.8)
[2023-08-27 09:12] LABS: Alanine Aminotransferase 21 U/L (0-40); Albumin Level 3.9 g/dL (3.5-5.0); Alkaline Phosphatase 92 U/L (39-117); Anion Gap 11 (12-20); Aspartate Amino Transferase 16 U/L (5-37); Bilirubin Total 0.2 mg/dL (0.0-1.0); Blood Urea Nitrogen 13 mg/dL (9-16); Calcium 9.4 mg/dL (8.4-10.2); Carbon Dioxide 25 mmol/L (22-29); Chloride 108 mmol/L (96-108); Creatinine Clr Calc Pharmacy 110.4; Estimated Glomerular Filt Rate > 60; Glucose Random 111 mg/dL (60-115); Sodium 140 mmol/L (135-145); Total Protein 7.3 g/dL (6.5-8.0)
[2023-08-27 09:19] LABS: Troponin-I High Sensitivity < 2.7 ng/L (<3.5-35.0)
[2023-08-27 10:48] LABS: Influenza A PCR NEGATIVE (Negative); Influenza B PCR NEGATIVE (Negative); Resp Syncy Virus RNA Qual PCR NEGATIVE (Negative); SARS COV2 PCR INHOUSE NEGATIVE (Negative)
--- NOTE | 2023-08-27 12:31 | ED_ITS ---
HPI - Chest Pain General Chief Complaint: Chest Pain Stated Complaint: Chest pain Source: patient and special education itinerant teacher (all interactions with this patient facilitated by an [facility] sas programmer) Mode of arrival: ambulatory Limitations: language barrier (all interactions with this patient facilitated by an [facility] sas programmer) History of Present Illness ED Provider: Deborah Acuna PA-C HPI narrative: Patient is a 48 year old assigned male at with a history of a right shoulder replacement in 03/2023 presenting to the emergency department today with a cough and right shoulder pain. Patient states that he was sick awhile ago and continues to cough. Patient states that the cough causes muscle pain including in his right shoulder. Patient denies any dizziness, lightheadedness, abdominal pain, nausea, vomiting, fever, chills, blurry vision, double vision, loss of vision, chest pain, difficulty breathing, shortness of breath, back pain, night sweats, pain with urination, increased urinary frequency, increased urinary urgency, blood in his urine or stool, syncope or a near syncopal episode, recent trauma or falls, bowel incontinence, bladder incontinence, bowel retention, bladder retention, or any other complaints at this time. Related Data Previous Rx's ?Medication ?Instructions ?Recorded acetaminophen 325 mg tablet 650 mg (2 x 325 mg) PO Q6H PRN 03/15/23 Pain, Mild (Pain Scale 1-3) 30 days #240 tabs celecoxib 200 mg capsule 200 mg PO BID 30 days #60 caps 03/15/23 docusate sodium 100 mg capsule 100 mg PO BID 30 days #60 caps 03/15/23 hydroxyzine HCl 10 mg tablet 10 mg PO Q8H PRN itching 7 days 03/20/23 #21 tabs betamethasone valerate 0.1 % 1 appl topical BID PRN itching #15 03/25/23 topical cream grams triamcinolone acetonide 0.1 % 1 appl topical BID #15 grams 03/25/23 topical cream hydrocodone 5 mg-acetaminophen 325 1 tab PO Q6H PRN pain 7 days #28 03/28/23 mg tablet tabs benzonatate 100 mg capsule 100 mg PO BID PRN cough 7 days #14 08/27/23 caps Allergies Allergy/AdvReac Type Severity Reaction Status Date / Time adhesive tape Allergy Severe Rash, eyes Verified 08/27/23 08:32 and ears went to ED shrimp Allergy Severe throat Verified 08/27/23 08:32 swelling latex [LATEX] Allergy Intermediate ITCHING Verified 08/27/23 08:32 Penicillins [PENICILLINS] Allergy Intermediate RASH Verified 08/27/23 08:32 Review of Systems 2 Constitutional: Constitutional: Reports no additional constitutional complaints, Denies chills, Denies fever(s) and Denies night sweats Eyes: Eyes: Reports no additional eye complaints, Denies blurry vision, Denies change in vision, Denies diplopia, Denies eye discharge, Denies loss of vision and Denies eye pain ENT: Denies dizziness Cardiovascular: Cardiovascular: Reports no additional cardiovascular complaints, Denies chest pain, Denies lightheadedness, Denies Loss of Consciousness and Denies dyspnea Respiratory: Respiratory: Reports no additional respiratory complaints, Reports cough and Denies dyspnea Gastrointestinal: Gastrointestinal: Reports no additional gastrointestinal complaints, Denies abdominal pain, Denies melena, Denies hematochezia, Denies change in bowel habits and Denies change in stool character Genitourinary: Genitourinary: Reports no additional male genitourinary complaints, Denies hematuria, Denies oliguria, Denies difficulty urinating, Denies dysuria, Denies urinary frequency, Denies urinary hesitancy, Denies urinary incontinence and Denies urinary urgency Musculoskeletal: Musculoskeletal: Reports no additional musculoskeletal complaints, Denies numbness and Denies tingling Comments: right shoulder pain Neurologic: Denies dizziness, Denies loss of vision, Denies numbness and Denies tingling Psychiatric: Psychiatric: Reports no additional psychiatric complaints Endocrine: Endocrine: Reports no additional endocrine complaints Hematologic/Lymphatic: Hematologic/Lymphatic: Reports no additional hematologic/lymphatic complaints Allergic/Immunologic: Allergic/Immunologic: Reports no additional allergic/immunologic complaints [facility] Past Medical History Attestation statement: The following information was validated with the patient. Source: old records reviewed and nursing notes reviewed Medical History Opacity of lung on imaging study Pleurodynia Rib pain Sleep apnea History of alcohol dependence Osteoarthritis Impaired glucose tolerance Bilateral primary osteoarthritis of knee Carpal tunnel syndrome Lumbar spondylosis Surgical History Hx of carpal tunnel repair Hx of hand surgery Hx of knee surgery Hx of knee surgery H/O right knee surgery H/O neck surgery Family History Family History Mother Diabetes mellitus Father No problems noted. Social History Social History Household Members: Spouse and Family Household Members Other:: 3 Housing: Other Housing Other:: town house Are you a primary palliative care specialist to a significant other at home: No Do you presently have visiting nurse or other home services: No Alcohol intake: current Alcohol intake frequency: 0-2 drinks per day Alcohol type: beer and hard liquor Patient Tobacco Use Status: Never used Tobacco e-Cigarette/Vaping Use: Never Used Second Hand Smoke Exposure: No Advance Directives: Yes Advance Directives on File: Yes Advance Directives Date on File: 03/17/23 service: No Current occupational status: retired Cognitive needs: No Hearing needs: No Vision needs: No Physical Exam 2 Vital Signs: Vital Signs: Last Vital Signs Temp 98.7 F 08/27/23 13:11 Pulse 74 08/27/23 13:11 Resp 16 08/27/23 13:11 BP 142/85 H 08/27/23 13:11 Pulse Ox 98 08/27/23 13:11 O2 Del Method Room Air 08/27/23 13:11 BMI result Body Mass Index 32.0 Const: General: cooperative, no acute distress, alert and awake Nutritional Appearance: well nourished Orientation/consciousness: patient oriented x3 Limitations: no limitations HEENT: Head: Yes normal to inspection and Yes atraumatic Ears: hearing grossly normal bilaterally and external ears normal General nose exam: Normal external nose present, no nasal discharge noted and no epistaxis Face and sinus: Yes normal facial exam, No abrasion and No laceration Mouth: Normal oral and palatal mucosa present, no drooling and no muffled voice Eyes: General: appearance normal, both eyes and all related structures P eriorbital: periorbital findings normal Eyelids: Yes eyelids normal C onjunctivae: conjunctivae normal Pupils: Equal, round and reactive pupils present EOM: EOMs intact bilaterally Neck: Neck: Yes normal visual inspection, Yes full ROM and Yes no lymphadenopathy Chest: Chest palpation & inspection: normal inspection of the chest Resp: Effort & Inspection: normal respiratory effort and able to speak in complete sentences GI: Inspection: Yes normal to inspection Neuro: General: patient oriented x3 and moves all extremities Cranial nerves: Yes Equal, round and reactive pupils present Cognition (Neuro): n ormal cognition Motor exam (neuro): 5/5 motor strength present throughout Sensory Exam: Normal double simultaneous stimulation for sensation C oordination: [id number] test normal Extrem: General: Yes normal to inspection, Yes full ROM and Yes capillary refill normal Psych: Appearance: grossly normal Mental Status: mental status grossly normal Affect: normal affect Attitude: cooperative Thought process: N ormal thought process present Thought content: Normal thought content present Insight: Good insight present (Psych) Medications Administered Discontinued Medications Generic Name Dose Route Start Last Admin Trade Name Freq PRN Reason Stop Dose Admin Ketorolac Tromethamine 15 mg 08/27/23 12:35 08/27/23 12:42 Ketorolac Tromethamine 15 Mg/Ml Vial IM 08/27/23 12:36 15 mg ONCE ONE Administration Medical Decision Making Medical Decision Making [facility] Narrative: Patient is a 48 year old assigned male at with a history of right shoulder replacement in 03/25 presenting to the emergency department today with a cough and right shoulder pain. Patient's physical exam was unremarkable. Patient's blood work was unremarkable. Patient's EKG was unremarkable. Patient's right shoulder and chest x-rays showed no acute process. I explained my physical exam findings as well as all test results to the patient. I answered all questions asked by the patient. Patient received IM Toradol which he stated helped his symptoms significantly. I stressed the importance of the patient taking his medication as prescribed. I stressed the importance of the patient following up with his primary care provider. I stressed the importance of the patient returning to the emergency department immediately if his symptoms were to worsen or if he were to develop any dizziness, shortness of breath, difficulty breathing, chest pain, blurry vision, loss of vision, nausea, vomiting, abdominal pain, fever, chills, back pain, or any other complaints. Patient verbalized agreement and understanding with this treatment plan and discharge. Differential Diagnosis Differential Diagnoses: The differential diagnosis associated with the presentation includes Shoulder pain Cough Admission/Observation Consideration of admission/observation: Escalation of care including admission/observation considered Patient would have been admitted to the hospital had his work up had any findings where hospital admission was appropriate and his clinical presentation warranted hospital admission. Lab Data [facility] Lab Attestation statement: I reviewed the patient's lab results. My interpretation of these results are in the [facility] Rationale portion of this note. 08/27/23 08:52 08/27/23 08:52 Labs: Lab Results 08/27/23 Range/Units 08:52 WBC 6.2 (4.8-10.8) X10*3/uL RBC 5.05 (4.60-5.80) X10*6/uL Hgb 13.6 L (14.0-18.0) g/dl Hct 41.4 L (42.0-52.0) % MCV 82.0 (80.0-98.0) fL MCH 26.9 L (27.0-33.0) pg MCHC 32.9 (31.0-36.0) g/dl RDW 15.0 (11.0-16.0) % Plt Count 311 (160-400) X10*3/uL MPV 10.3 (9.4-12.4) fL Immature Gran % (Auto) 0.2 (0.0-0.4) % Neut % (Auto) 57.5 (45-73) % Lymph % (Auto) 26.7 (20-40) % Burke % (Auto) 7.9 (2-11) % Eos % (Auto) 7.1 H (0-4) % Baso % (Auto) 0.6 (0-2) % Lymph # (Auto) 1.7 (1.2-4.9) X10*3/uL Burke # (Auto) 0.5 (0.1-1.2) X10*3/uL Eos # (Auto) 0.4 (0.0-0.4) X10*3/uL Baso # (Auto) 0.0 (0.0-0.2) X10*3/uL Abs Immat Gran (auto) 0.01 (0.00-0.03) X10*3/uL Absolute Neuts (auto) 3.6 (2.0-8.3) x10*3/uL Absolute Nucleated RBC 0.000 (0.0-0.012) X10*3/uL Nucleated RBC % (auto) 0.0 (0.0-0.2) /100WBC Sodium 140 (135-145) mmol/L Potassium 4.0 (3.3-5.1) mmol/L Chloride 108 (96-108) mmol/L Carbon Dioxide 25 (22-29) mmol/L Anion Gap 11 L (12-20) BUN 13 (9-16) mg/dL Creatinine 0.84 (0.5-1.4) mg/dL Estim Creat Clear Calc 110.4 Estimated GFR > 60 Random Glucose 111 (60-115) mg/dL Calcium 9.4 (8.4-10.2) mg/dL Total Bilirubin 0.2 (0.0-1.0) mg/dL AST 16 (5-37) U/L ALT 21 (0-40) U/L Alkaline Phosphatase 92 (39-117) U/L Troponin I High Sens < 2.7 (<3.5-35.0) ng/L Total Protein 7.3 (6.5-8.0) g/dL Albumin 3.9 (3.5-5.0) g/dL Influenza Type A (PCR) NEGATIVE (Negative) Influenza Type B (PCR) NEGATIVE (Negative) RSV RNA Qual (PCR) NEGATIVE (Negative) SARS-CoV-2 RNA (RT-PCR) NEGATIVE (Negative) Independent Interpretation I performed an independent interpretation of an: EKG and Plain X-Ray Interpretation: My interpretation is in agreement with the radiologist's impression of these imaging studies. - EXAMINATION: XR CHEST CLINICAL INFORMATION: Right-sided chest pain COMPARISON: None available. TECHNIQUE: Frontal view of the chest was obtained. FINDINGS: No significant abnormality is noted involving the heart, lungs, mediastinum, bony thorax or soft tissues. XR/XR chest 1V IMPRESSION: No radiographic evidence of acute cardiopulmonary disease. Dictated By: Tami Paz MD Signed By: Electronically signed by Tami Paz MD 08/27/23 1009 - EXAMINATION: XR SHOULDER, RIGHT CLINICAL INFORMATION: Pain COMPARISON: 2022 TECHNIQUE: AP external rotation, Grashey, scapular Y, and axillary views of the right shoulder. FINDINGS: Right shoulder prosthesis in place properly articulating with the glenoid process. No fractures. Adjacent ribs, clavicle, AC joint and included lungs are clear. XR/XR shoulder RT min 2V IMPRESSION: Right shoulder prosthesis in place properly articulating with the glenoid process. Dictated By: Tami Paz MD Signed By: Electronically signed by Tami Paz MD 08/27/23 1000 - Vent. Rate: 066 BPM Atrial Rate: 066 BPM P-R Int: 138 ms QRS Dur: 106 ms QT Int: 372 ms P-R-T Axes: 057 -04 -10 degrees QTc Int: 389 ms Normal sinus rhythm Moderate voltage criteria for LVH, may be normal variant (R in aVL, [place] product) Nonspecific ST abnormality Abnormal ECG When compared with ECG of 07-MAR-2023 12:53, No significant change was found DD/ 0843 Radiology Impression Discussion of test interpretation with radiology: I have reviewed the radiologist's reading. Discharge Plan Discharge Clinical Impression: Cough, Musculoskeletal pain Patient Disposition: Home, Self-Care Instructions: Musculoskeletal Pain (ED), Acute Cough (ED) Additional Instructions: Follow up with your primary care provider. Return to the emergency department immediately if your symptoms worsen or if you develop any dizziness, shortness of breath, difficulty breathing, chest pain, blurry vision, loss of vision, nausea, vomiting, abdominal pain, fever, chills, back pain, or any other complaints. Prescriptions: New benzonatate 100 mg capsule 100 mg PO BID PRN (Reason: cough) 7 Days Qty: 14 0RF No Action acetaminophen 325 mg Tablet 650 mg PO Q6H PRN (Reason: Pain, Mild (Pain Scale 1-3)) 30 Days Qty: 240 0RF celecoxib 200 mg Capsule 200 mg PO BID 30 Days Qty: 60 0RF docusate sodium 100 mg Capsule 100 mg PO BID 30 Days Qty: 60 0RF triamcinolone acetonide 0.1 % cream 1 appl topical BID Qty: 15 0RF betamethasone valerate 0.1 % cream 1 appl topical BID PRN (Reason: itching) Qty: 15 0RF Rx Instructions: For FACE hydroxyzine HCl 10 mg tablet 10 mg PO Q8H PRN (Reason: itching) 7 Days Qty: 21 0RF hydrocodone-acetaminophen 5-325 mg tablet 1 tab PO Q6H PRN (Reason: pain) 7 Days Qty: 28 0RF Rx Instructions: Partial Fill upon patient request. Referrals: Deandra Griffin MD [Primary Care Provider] - Stand Alone Forms: Work/School Release Interventions: ED Discharge Assessment Last Done: 08/27/23 13:11 Discharge Date/Time: 08/27/23 13:12 Print Language: Guinean
[2023-08-27] MEDS: Ketorolac Tromethamine 15 MG/ML VIAL IM (12:42)
--- NOTE | 2023-08-27 12:45 | PC.NURSE ---
a&ox4. vss and up to date. nsr on the cafeteria monitor. pt presenting w/ sternal chest pain that radiates to right shoulder. pt states sx increase w/ coughing. no sob/wob noted. respirations even and unlabored. pt medicated per provider order. effectiveness pending. plan of care ongoing.
[2023-08-27 13:11] VITALS: BP 142/85; PULSE 74; RESP 16; TEMP 37.1; O2SAT 98
--- NOTE | 2023-08-27 13:12 | PC.NURSE ---
pt verbalizing pain completely subsided post medication administration. resin sh[employer] services utilized for d/c paperwork.
== END 2023-08-27 13:12 | disposition home or self-care (01) ==
PROVIDERS: Emergency Medicine; Emergency Provider Student in an Organized Health Care Education/Training Program; PCP Internal Medicine
DX: R05.9 Cough, unspecified (principal); M79.18 Myalgia, other site; Z96.611 Presence of right artificial shoulder joint; Z11.52 Encounter for screening for COVID-19
CPT/HCPCS: 0241U; 71045; 73030; 80053; 84484; 85025; 93005; 96372; 99283; 99284; J1885

== ENCOUNTER → 2023-08-27 08:28 | Outpatient (BNV) | payer OTHER, SELFPAY | PROVIDERS: Emergency Provider Student in an Organized Health Care Education/Training Program; PCP Internal Medicine; Visit Provider Internal Medicine Cardiovascular Disease | DX: R94.31 Abnormal electrocardiogram [ECG] [EKG] (principal) | CPT/HCPCS: 93010 ==

== ENCOUNTER 2023-11-05 17:45 | Emergency (ER) | payer OTHER, SELFPAY ==
--- NOTE | ~2023-11-05 | XR_ITS ---
EXAMINATION: XR SHOULDER, LEFT CLINICAL INFORMATION: Pain. Morgan pop in shoulder COMPARISON: None available. TECHNIQUE: AP external rotation, Grashey, scapular Y, and axillary views of the left shoulder. FINDINGS: Humeral head is well-seated in the glenoid fossa. Extensive glenohumeral degenerative changes are seen with marginal osteophytosis in the humeral head/neck junction as well as along the inferior glenoid. I do not appreciate any acute superimposed fracture or dislocation. Mild degenerative changes in the acromioclavicular joint. Visualized left chest and ribs are unremarkable. XR/XR shoulder LT min 2V IMPRESSION: Extensive glenohumeral degenerative changes but no acute fracture or dislocation.
[2023-11-05 17:58] VITALS: BP 143/84; PULSE 77; RESP 18; TEMP 36.8; O2SAT 97; BMI 30.6
--- NOTE | 2023-11-05 18:04 | ED.GENADULT ---
HPI - General Adult General Chief complaint: Extremity Injury, Upper Stated complaint: shoulder pain Time Seen by Provider: 11/05/23 19:20 Source: patient Mode of arrival: ambulatory Limitations: no limitations History of Present Illness ED Provider: Deborah Acuna PA-C HPI narrative: Patient is a 48 year old assigned male at with no reported medical history presenting to the emergency department today with left shoulder pain. Patient states that over the last 2 weeks he has had left shoulder pain. Patient states that he picked up a gallon bucket of paint and felt something pop in his left shoulder. Patient states that he has had pain in that shoulder ever since. Patient denies any dizziness, lightheadedness, abdominal pain, nausea, vomiting, fever, chills, blurry vision, double vision, loss of vision, chest pain, difficulty breathing, shortness of breath, back pain, night sweats, pain with urination, increased urinary frequency, increased urinary urgency, blood in his urine or stool, syncope or a near syncopal episode, bowel incontinence, bladder incontinence, or any other complaints at this time. Onset (ago): week(s) (2) Location: left and upper extremity Severity: mild Severity scale (1-10): 4 Quality: aching Pain Consistency: constant Relieving factors: none Exacerbating factors: movement Associated symptoms: denies other symptoms Treatments prior to arrival: none Related Data Previous Rx's ?Medication ?Instructions ?Recorded acetaminophen 325 mg tablet 650 mg (2 x 325 mg) PO Q6H PRN 03/15/23 Pain, Mild (Pain Scale 1-3) 30 days #240 tabs celecoxib 200 mg capsule 200 mg PO BID 30 days #60 caps 03/15/23 docusate sodium 100 mg capsule 100 mg PO BID 30 days #60 caps 03/15/23 hydroxyzine HCl 10 mg tablet 10 mg PO Q8H PRN itching 7 days 03/20/23 #21 tabs betamethasone valerate 0.1 % 1 appl topical BID PRN itching #15 03/25/23 topical cream grams triamcinolone acetonide 0.1 % 1 appl topical BID #15 grams 03/25/23 topical cream hydrocodone 5 mg-acetaminophen 325 1 tab PO Q6H PRN pain 7 days #28 03/28/23 mg tablet tabs benzonatate 100 mg capsule 100 mg PO BID PRN cough 7 days #14 05/26/24 caps Allergies Allergy/AdvReac Type Severity Reaction Status Date / Time adhesive tape Allergy Severe Rash, eyes Verified 11/05/23 18:03 and ears went to ED shrimp Allergy Severe throat Verified 11/05/23 18:03 swelling latex [LATEX] Allergy Intermediate ITCHING Verified 11/05/23 18:03 Penicillins [PENICILLINS] Allergy Intermediate RASH Verified 11/05/23 18:03 lidocaine [From Lidoderm] AdvReac Rash Verified 11/05/23 18:04 Review of Systems Constitutional: Constitutional: Reports no additional constitutional complaints, Denies chills, Denies fever(s) and Denies night sweats Eyes: Eyes: Reports no additional eye complaints, Denies blurry vision, Denies change in vision, Denies diplopia, Denies eye discharge, Denies loss of vision and Denies eye pain ENT: Denies dizziness Cardiovascular: Cardiovascular: Reports no additional cardiovascular complaints, Denies chest pain, Denies lightheadedness, Denies Loss of Consciousness and Denies dyspnea Respiratory: Respiratory: Reports no additional respiratory complaints and Denies dyspnea Gastrointestinal: Gastrointestinal: Reports no additional gastrointestinal complaints, Denies abdominal pain, Denies melena, Denies hematochezia, Denies change in bowel habits and Denies change in stool character Genitourinary: Genitourinary: Reports no additional male genitourinary complaints, Denies hematuria, Denies oliguria, Denies difficulty urinating, Denies dysuria, Denies urinary frequency, Denies urinary hesitancy, Denies urinary incontinence and Denies urinary urgency Musculoskeletal: Musculoskeletal: Reports no additional musculoskeletal complaints, Denies numbness and Denies tingling Comments: left shoulder pain Neurologic: Denies dizziness, Denies loss of vision, Denies numbness and Denies tingling Psychiatric: Psychiatric: Reports no additional psychiatric complaints Endocrine: Endocrine: Reports no additional endocrine complaints Hematologic/Lymphatic: Hematologic/Lymphatic: Reports no additional hematologic/lymphatic complaints Allergic/Immunologic: Allergic/Immunologic: Reports no additional allergic/immunologic complaints PMFSH Past Medical History Attestation statement: The following information was validated with the patient. Source: old records reviewed and nursing notes reviewed Medical History Opacity of lung on imaging study Pleurodynia Rib pain Sleep apnea History of alcohol dependence Osteoarthritis Impaired glucose tolerance Bilateral primary osteoarthritis of knee Carpal tunnel syndrome Lumbar spondylosis Surgical History Hx of carpal tunnel repair Hx of hand surgery Hx of knee surgery Hx of knee surgery H/O right knee surgery H/O neck surgery Family History Family History Mother Diabetes mellitus Father No problems noted. Social History Social History Household Members: Spouse and Family Household Members Other:: 3 Housing: Other Housing Other:: [facility] Are you a primary rn transitional care to a significant other at home: No Do you presently have visiting nurse or other home services: No Alcohol intake: current Alcohol intake frequency: 0-2 drinks per day Alcohol type: beer and hard liquor Patient Tobacco Use Status: Never used Tobacco e-Cigarette/Vaping Use: Never Used Second Hand Smoke Exposure: No Advance Directives: Yes Advance Directives on File: Yes Advance Directives Date on File: 03/17/23 Do you have a plan to hurt others: No Plan service: No Current occupational status: retired Cognitive needs: No Hearing needs: No Vision needs: No Physical Exam ED Vital Signs: Vital Signs - 24 hr 11/05/23 17:58 11/05/23 20:09 11/05/23 20:20 Temperature 98.2 F 98.1 F 98.5 F Pulse Rate 77 72 72 Respiratory Rate 18 16 16 Blood Pressure 143/84 H 155/81 H 133/81 Pulse Oximetry 97 99 99 Oxygen Delivery Method Room Air Room Air Room Air BMI result Body Mass Index 30.6 Const General: cooperative, no acute distress, alert and awake Nutritional Appearance: well nourished Orientation/consciousness: patient oriented x3 Limitations: no limitations HENMT Head: Yes normal to inspection and Yes atraumatic Ears: hearing grossly normal bilaterally and external ears normal General nose exam: Normal external nose present, no nasal discharge noted and no epistaxis Face and sinus: Yes normal facial exam, No abrasion and No laceration Mouth: Normal oral and palatal mucosa present, no drooling and no muffled voice Eyes General: appearance normal, both eyes and all related structures Periorbital: periorbital findings normal Eyelids: Yes eyelids normal Conjunctivae: conjunctivae normal Pupils: Equal, round and reactive pupils present EOM: EOMs intact bilaterally Neck Neck: Yes normal visual inspection, Yes full ROM and Yes no lymphadenopathy Chest Chest palpation & inspection: normal inspection of the chest Resp Effort & Inspection: normal respiratory effort and able to speak in complete sentences GI Inspection: Yes normal to inspection Neuro General: patient oriented x3 and moves all extremities Cranial nerves: Yes Equal, round and reactive pupils present Cognition (Neuro): normal cognition Extrem Other: patient's left shoulder ROM is limited secondary to pain Patient is unable to elevate the left shoulder or perform any abduction General: Yes normal to inspection and Yes capillary refill normal Psych Appearance: grossly normal Mental Status: mental status grossly normal Affect: normal affect Attitude: cooperative Thought process: Normal thought process present Thought content: Normal thought content present Insight: Good insight present (Psych) Course Course Course Narrative: RmE: done by TYRA Valentine. 48-year-old male with history of shoulder issues that will require left shoulder replacement within 6 months by his orthopedic surgeon presents to ED for left shoulder pain for the past 2 weeks. Patient states he was picking up heavy pain with his left shoulder and heard a pop in the left shoulder ever since has had pain. Patient denies any chest pain, shortness of breath, referred neck pain. Patient states pain on movement. Positive for shoulder tenderness on palpation. Negative for upper extremity swelling, redness, bluish black discoloration, stiffness, or pitting edema. X-ray ordered. Medical Decision Making Medical Decision Making MDM Narrative: Patient is a 48 year old assigned male at with no reported medical history presenting to the emergency department today with left shoulder pain. Patient's physical exam was consistent with a left rotator cuff injury. Patient's left shoulder x-ray showed no acute maria eugenia process. I explained my physical exam findings as well as all test results to the patient. I answered all questions asked by the patient. I stressed the importance of the patient taking his medication as directed (either prescribed or as the over the counter packaging recommends). I stressed the importance of the patient following up with his primary care provider and an orthopedic provider. I stressed the importance of the patient returning to the emergency department immediately if his symptoms were to worsen or if he were to develop any dizziness, shortness of breath, difficulty breathing, chest pain, blurry vision, loss of vision, nausea, vomiting, abdominal pain, fever, chills, back pain, or any other complaints. Patient verbalized agreement and understanding with this treatment plan and discharge. Differential Diagnosis Differential Diagnoses: The differential diagnosis associated with the presentation includes Rotator cuff sprain Rotator cuff strain Rotator cuff injury Admission/Observation Consideration of admission/observation: Escalation of care including admission/observation considered Patient would have been admitted to the hospital had his work up had any findings where hospital admission was appropriate and his clinical presentation warranted hospital admission. Independent Interpretation I performed an independent interpretation of an: Plain X-Ray Interpretation: My interpretation is in agreement with the radiologist's impression of this imaging study. EXAMINATION: XR SHOULDER, LEFT CLINICAL INFORMATION: Pain. [place] pop in shoulder COMPARISON: None available. TECHNIQUE: AP external rotation, Grashey, scapular Y, and axillary views of the left shoulder. FINDINGS: Humeral head is well-seated in the glenoid fossa. Extensive glenohumeral degenerative changes are seen with marginal osteophytosis in the humeral head/neck junction as well as along the inferior glenoid. I do not appreciate any acute superimposed fracture or dislocation. Mild degenerative changes in the acromioclavicular joint. Visualized left chest and ribs are unremarkable. XR/XR shoulder LT min 2V IMPRESSION: Extensive glenohumeral degenerative changes but no acute fracture or dislocation. Dictated By: Herbert Do MD Signed By: Electronically signed by Herbert Do MD 11/05/232039 Radiology Impression Discussion of test interpretation with radiology: I have reviewed the radiologist's reading. Discharge Plan Discharge Clinical Impression: Rotator cuff dysfunction Patient Disposition: Home, Self-Care Instructions: Rotator Cuff Injury (ED), Rotator Cuff Injury Exercises (DC) Additional Instructions: Your shoulder x-ray showed no evidence of any breaks/fractures. You likely injured your rotator cuff. Follow up with your primary care provider and an orthopedic provider. Return to the emergency department immediately if your symptoms worsen or if you develop any dizziness, shortness of breath, difficulty breathing, chest pain, blurry vision, loss of vision, nausea, vomiting, abdominal pain, fever, chills, back pain, or any other complaints. La radiograf?a del hombro no muestra ninguna fractura. Es probable que se haya lesionado el manguito de los rotadores. Consulte a parra m?dico de cabecera y a un traumat?logo. Vuelva al servicio de urgencias inmediatamente si angelika s?ntomas empeoran o si presenta mareos, falta de aliento, dificultad para respirar, dolor tor?cico, visi?n borrosa, p?rdida de visi?n, n?useas, v?mitos, dolor abdominal, fiebre, escalofr?os, dolor de espalda o cualquier otra molestia. Prescriptions: No Action acetaminophen 325 mg Tablet 650 mg PO Q6H PRN (Reason: Pain, Mild (Pain Scale 1-3)) 30 Days Qty: 240 0RF celecoxib 200 mg Capsule 200 mg PO BID 30 Days Qty: 60 0RF docusate sodium 100 mg Capsule 100 mg PO BID 30 Days Qty: 60 0RF triamcinolone acetonide 0.1 % cream 1 appl topical BID Qty: 15 0RF betamethasone valerate 0.1 % cream 1 appl topical BID PRN (Reason: itching) Qty: 15 0RF Rx Instructions: For FACE benzonatate 100 mg capsule 100 mg PO BID PRN (Reason: cough) 7 Days Qty: 14 0RF hydroxyzine HCl 10 mg tablet 10 mg PO Q8H PRN (Reason: itching) 7 Days Qty: 21 0RF hydrocodone-acetaminophen 5-325 mg tablet 1 tab PO Q6H PRN (Reason: pain) 7 Days Qty: 28 0RF Rx Instructions: Partial Fill upon patient request. Referrals: [facility] [Provider Group] (Call to establish and follow up with an orthopedic provider. Llame para establecer y seguir con un proveedor de ortopedia.) Deandra Griffin MD [Primary Care Provider] - Stand Alone Forms: Work/School Release Interventions: ED Discharge Assessment Last Done: 11/05/23 20:20 Discharge Date/Time: 11/05/23 20:21 Print Language: Danish
[2023-11-05 20:09] VITALS: BP 155/81; PULSE 72; RESP 16; TEMP 36.7; O2SAT 99
[2023-11-05 20:20] VITALS: BP 133/81; PULSE 72; RESP 16; TEMP 36.9; O2SAT 99
== END 2023-11-05 20:21 | disposition home or self-care (01) ==
PROVIDERS: Emergency Provider Emergency Medicine Emergency Medical Services; PCP Internal Medicine
DX: M75.102 Unspecified rotator cuff tear or rupture of left shoulder, not specified as traumatic (principal); M25.512 Pain in left shoulder
CPT/HCPCS: 73030; 99283

== ENCOUNTER 2023-11-23 09:06 | Outpatient (AMB) | payer OTHER, SELFPAY ==
--- NOTE | 2023-11-23 09:13 | MHC.OFFVIS ---
Intake Visit Reasons: ED follow up- left rotator cuff injury Intake Note: Shaun is a 48 year old male who presents with complaints of progressively worsening left shoulder pain and weakness. The patient did undergo right total shoulder replacement surgery by Dr. Tucker on 03/14/2023. Reports mild intermittent discomfort in his right shoulder. He denies any fevers or chills. He did injure his left shoulder several months ago while lifting a heavy can of paint. Since that time he has had difficulty lifting his left hand above shoulder height. He has had cortisone injections in the past which gave him minimal relief. He has failed the last 6 weeks of conservative treatment. He has done physical therapy exercises which aggravated his pain. He has also tried Tylenol, anti-inflammatory medicines and lidocaine patches which gave him minimal relief. 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 Allergies adhesive tape Allergy (Severe, Verified 11/23/23 09:19) Rash, eyes and ears went to ED shrimp Allergy (Severe, Verified 11/23/23 09:19) throat swelling latex [LATEX] Allergy (Intermediate, Verified 11/23/23 09:19) ITCHING Penicillins [PENICILLINS] Allergy (Intermediate, Verified 11/23/23 09:19) RASH lidocaine [From Lidoderm] Adverse Reaction (Verified 11/23/23 09:19) Rash Medication List - Last Reviewed 11/23/23 by STEVEN Khan acetaminophen 650 mg (2 x 325 mg) PO Q6H PRN 30 days PFSH Medical History Opacity of lung on imaging study Pleurodynia Rib pain Sleep apnea History of alcohol dependence Osteoarthritis Impaired glucose tolerance Bilateral primary osteoarthritis of knee Carpal tunnel syndrome Lumbar spondylosis Surgical History Hx of carpal tunnel repair Hx of hand surgery Hx of knee surgery Hx of knee surgery H/O right knee surgery H/O neck surgery Family History Mother Diabetes mellitus Father No problems noted. Social History Household Members: Spouse and Family Household Members Other:: 3 Housing: Other Housing Other:: town house Are you a primary director of managed care to a significant other at home: No Do you presently have visiting nurse or other home services: No Alcohol intake: current Alcohol intake frequency: 0-2 drinks per day Alcohol type: beer and hard liquor Patient Tobacco Use Status: Never used Tobacco e-Cigarette/Vaping Use: Never Used Second Hand Smoke Exposure: No Advance Directives Date on File: 03/17/23 service: No Current occupational status: retired Cognitive needs: No Hearing needs: No Vision needs: No Physical Exam Const Other: Well-nourished well-developed very friendly male awake alert and oriented x3 in no acute distress Extrem Other: Bilateral upper extremity examination shows good capillary refill, no skin lesions noted, normal sensation light touch Left shoulder examination shows decreased range of motion when compared to his right shoulder, 4/5 strength with supraspinatus testing, positive impingement signs, tenderness over his acromioclavicular joint, no instability Results Reviewed Results Reviewed: X-rays of the patient's left shoulder show mild to moderate glenohumeral joint degenerative changes, a type 2 acromion, severe acromioclavicular joint narrowing, no acute bony abnormalities Assessment & Plan Assessment & Plan (1) Left shoulder pain: Code(s): M25.512 - Pain in left shoulder Category: Medical Plan Mr. Oconnor presents with progressively worsening left shoulder pain and weakness due to impingement syndrome, acromioclavicular joint arthritis and possible full-thickness rotator cuff tearing. Thus, I will send the patient for an MRI of his left shoulder for further evaluation. I will see him back once the MRI is completed to discuss the findings and treatment options. He will continue with his activity modifications in the meantime. Feel free to call me at any time should questions regarding his orthopedic management arise. Thank you very much for asking me to see this very friendly gentleman. I spent 21 minutes in reviewing the patient's records and imaging studies, seeing the patient and documenting in the medical record. Orders: Orders MR shoulder LT wo con Today M25.512 - Pain in left shoulder Coding Level of Care Code Est Pt Level 3 (78463) Diagnoses Left shoulder pain M25.512
== END 2023-11-23 09:23 | disposition home or self-care (01) ==
PROVIDERS: PCP Internal Medicine; Visit Provider Orthopaedic Surgery
DX: M25.512 Pain in left shoulder (principal)
CPT/HCPCS: 99213

== ENCOUNTER → 2023-11-23 09:06 | Outpatient (BNVA) | payer OTHER, SELFPAY | PROVIDERS: PCP Internal Medicine; Visit Provider Orthopaedic Surgery | DX: M25.512 Pain in left shoulder (principal); R53.1 Weakness; Z96.611 Presence of right artificial shoulder joint | CPT/HCPCS: 99212 ==

== ENCOUNTER 2023-11-25 09:26 | Emergency (ER) | payer OTHER, SELFPAY ==
[2023-11-25 09:28] VITALS: BP 145/88; PULSE 69; RESP 20; TEMP 36.2; O2SAT 96; BMI 30.2
--- NOTE | 2023-11-25 10:22 | ED.EXTPRO ---
HPI - Extremity Problem General Chief complaint: Extremity Injury, Upper Stated complaint: L arm pain Time Seen by Provider: 11/25/23 10:21 Source: patient, RN notes reviewed and old records reviewed Mode of arrival: ambulatory Limitations: no limitations History of Present Illness ED Provider: Humza Jones PA-C HPI Narrative: 48-year-old male with history of chronic left shoulder pain presents the ER for evaluation of worsening pain since last night. He just saw orthopedics 2 days ago. An MRI was ordered. He reports minimal relief with Motrin and Tylenol. He took a leftover Percocet that he was prescribed months ago at 05:00 this morning because he could not sleep last night. Denies any recent injury or fall. He reports the pain is worse than the left shoulder, radiating to the upper arm. It is worse with any movement or range of motion of the shoulder. MD Complaint: joint pain Onset (ago): day(s) Pain Consistency: constant Location: left and upper extremity Quality: stabbing Radiation: distal Relieving factors: rest Exacerbating factors: range of motion and palpation Associated symptoms: denies other symptoms Related Data Previous Rx's ?Medication ?Instructions ?Recorded acetaminophen 325 mg tablet 650 mg (2 x 325 mg) PO Q6H PRN 03/15/23 Pain, Mild (Pain Scale 1-3) 30 days #240 tabs oxycodone 5 mg tablet 5 mg PO Q6H PRN pain #10 tabs 11/25/23 Allergies Allergy/AdvReac Type Severity Reaction Status Date / Time adhesive tape Allergy Severe Rash, eyes Verified 11/25/23 09:31 and ears went to ED shrimp Allergy Severe throat Verified 11/25/23 09:31 swelling latex [LATEX] Allergy Intermediate ITCHING Verified 11/25/23 09:31 Penicillins [PENICILLINS] Allergy Intermediate RASH Verified 11/25/23 09:31 lidocaine [From Lidoderm] AdvReac Rash Verified 11/25/23 09:31 Review of Systems Review of Systems: Yes all other systems are reviewed and are negative [facility] Past Medical History Medical History Opacity of lung on imaging study Pleurodynia Rib pain Sleep apnea History of alcohol dependence Osteoarthritis Impaired glucose tolerance Bilateral primary osteoarthritis of knee Carpal tunnel syndrome Lumbar spondylosis Surgical History Hx of carpal tunnel repair Hx of hand surgery Hx of knee surgery Hx of knee surgery H/O right knee surgery H/O neck surgery Family History Family History Mother Diabetes mellitus Father No problems noted. Social History Social History Household Members: Spouse and Family Household Members Other:: 3 Housing: Other Housing Other:: [facility] house Are you a primary care transitions nurse to a significant other at home: No Do you presently have visiting nurse or other home services: No Alcohol intake: current Alcohol intake frequency: 0-2 drinks per day Alcohol type: beer and hard liquor Patient Tobacco Use Status: Never used Tobacco e-Cigarette/Vaping Use: Never Used Second Hand Smoke Exposure: No Advance Directives: Yes Advance Directives on File: Yes Advance Directives Date on File: 03/17/23 service: No Current occupational status: retired Cognitive needs: No Hearing needs: No Vision needs: No Physical Exam Vital Signs: Vital Signs: Last Vital Signs Temp 97.2 F 11/25/23 11:40 Pulse 96 11/25/23 11:40 Resp 17 11/25/23 11:40 BP 138/66 11/25/23 11:40 Pulse Ox 95 11/25/23 11:10 O2 Del Method Room Air 11/25/23 11:10 BMI result Body Mass Index 30.2 Appearance: Alert. Oriented X3. Appears uncomfortable HEENT: normal inspection CVS: Normal heart rate and rhythm. Pulses normal. Respiratory: No respiratory distress. Skin: Skin warm and dry. Normal skin color. Normal skin turgor. No rashes. Extremities: Left arm held in passive adduction and flexion. Limited range of motion of the left shoulder due to severe pain. He has tenderness anteriorly and laterally. Neuro: Oriented X 3. Grossly normal, nonfocal Medications Administered Discontinued Medications Generic Name Dose Route Start Last Admin Trade Name Freq PRN Reason Stop Dose Admin Acetaminophen 975 mg 11/25/23 10:50 11/25/23 11:10 Acetaminophen 325 Mg Tablet PO 11/25/23 10:51 975 mg ONCE ONE Administration Ketorolac Tromethamine 30 mg 11/25/23 10:50 11/25/23 11:13 Ketorolac Tromethamine 30 Mg/Ml Vial IM 11/25/23 10:51 30 mg ONCE ONE Administration Oxycodone HCl 10 mg 11/25/23 10:50 11/25/23 11:12 Oxycodone Hcl Immed Release 5 Mg Tablet PO 11/25/23 10:51 10 mg ONCE ONE Administration Medical Decision Making Medical Decision Making MDM Narrative: 48-year-old male presents to the ER for evaluation of acute on chronic left shoulder pain. Pain has been present for 1 month but is acutely worsening since last night. He has significant range of motion limitations due to pain. He just saw Dr. Fuentes 2 days ago who ordered MRI for him. He had an x-ray of his left shoulder earlier this month. Patient was treated with Toradol, oxycodone and Tylenol while in the ER with improvement in his pain to a 5/10 from 01/10. Will prescribe a short course of oxycodone for his pain exacerbation. We discussed the importance of obtaining his MRI so he can discuss further treatment options with orthopedics. Stable for discharge home with orthopedics outpatient follow-up. Differential Diagnosis Differential Diagnoses: The differential diagnosis associated with the presentation includes Rotator cuff injury, arthritis, low suspicion for fracture given no recent trauma External Record Review External record reviewed: Outpatient record, Prior outpatient labs and Prior outpatient radiology Tests considered The following testing was considered but not selected: Consider repeat shoulder x-ray however 1 was just on a couple of weeks ago and there is no new traumatic injury Prescription Management I considered prescription management with: Pain Medication Chronic Conditions Patient?s care impacted by: Other (Arthritis) Critical Care Time Critical Care Time Critical Care Time: No Discharge Plan Discharge Clinical Impression: Chronic left shoulder pain Patient Disposition: Home, Self-Care Instructions: Shoulder Pain (ED) Additional Instructions: Take the prescribed narcotic medication as needed for severe pain only. Do not drive after taking this medication Also recommend taking the prescribed anti-inflammatory medication every 6-8 hours. Also recommend continuing Tylenol 1000 mg every 6-8 hours. Follow-up with orthopedics for your MRI and further evaluation of treatment options. Recommend following up with pain management, name and number below. Prescriptions: New oxycodone 5 mg tablet 5 mg PO Q6H PRN (Reason: pain) Qty: 10 0RF Rx Instructions: Partial Fill upon patient request. No Action acetaminophen 325 mg Tablet 650 mg PO Q6H PRN (Reason: Pain, Mild (Pain Scale 1-3)) 30 Days Qty: 240 0RF Referrals: [facility] [Provider Group] [facility] [Provider Group] Deandra Griffin MD [Primary Care Provider] - Interventions: ED Discharge Assessment Last Done: 11/25/23 11:40 Discharge Date/Time: 11/25/23 11:43 Print Language: Ethiopian
[2023-11-25 11:10] VITALS: BP 138/66; PULSE 96; RESP 17; O2SAT 95
[2023-11-25] MEDS: Acetaminophen 325 MG TABLET 975 MG PO (11:10)
[2023-11-25] MEDS: oxyCODONE HCl Immed Release 5 MG TABLET 10 MG PO (11:12)
[2023-11-25] MEDS: Ketorolac Tromethamine 30 MG/ML VIAL IM (11:13)
--- NOTE | 2023-11-25 11:22 | PC.NURSE ---
PT medicated per MAR.
[2023-11-25 11:38] VITALS: BP 138/66; PULSE 96; RESP 17; TEMP 36.2
[2023-11-25 11:40] VITALS: BP 138/66; PULSE 96; RESP 17; TEMP 36.2
== END 2023-11-25 11:43 | disposition home or self-care (01) ==
PROVIDERS: Emergency Provider Emergency Medicine; PCP Internal Medicine
DX: G89.29 Other chronic pain (principal); M25.512 Pain in left shoulder
CPT/HCPCS: 96372; 99283; 99284; J1885

== ENCOUNTER 2023-12-17 07:46 | Outpatient (REF) | payer OTHER, SELFPAY ==
--- NOTE | ~2023-12-17 | MR_ITS ---
EXAMINATION: MR SHOULDER WITHOUT CONTRAST, LEFT CLINICAL INFORMATION: Pain left shoulder, decreased range of motion. COMPARISON: X-ray of the left shoulder November 2023. TECHNIQUE: MRI of the shoulder without contrast was performed on a high-field scanner. FINDINGS: ROTATOR CUFF: Subscapularis: There is enlargement and heterogeneous increased signal within the distal 1.8 cm of the upper half of the subscapularis compatible with intrasubstance partial tearing. No transverse defect or tendon retraction. Muscle is normal. Mild heterogeneity of the supraspinatus and infraspinatus tendons compatible with tendinosis. No definite tear. Muscles are normal. Teres Minor: Normal. BICEPS: There is a complete tear of the intra-articular portion of the biceps tendon with distal retraction to the level of the bicipital groove. The retracted portion of the tendon is enlarged and heterogeneous in this location. There is additional longitudinal increased signal in the more distal portion of the biceps indicative of additional partial tearing. CORACOACROMIAL ARCH: The undersurface of the acromion is curved with no subacromial spur. There is mild arthrosis of the acromioclavicular joint. BURSA: There is a lipomatous mass within or deep to the subacromial-subdeltoid bursa extending along the proximal lateral aspect of the proximal humerus deep to the deltoid muscle. The mass has signal characteristics identical to that of subcutaneous fat. The mass measures 4.8 cm craniocaudal, 1 cm transverse, and 3.6 cm AP. There is also mild increased fluid in the subacromial-subdeltoid bursa compatible with a mild bursitis. GLENOHUMERAL JOINT AND LABRUM/CAPSULE: The glenoid is dysplastic. There is [id number] hypoplasia of the posterior glenoid with resultant enlargement of the posterior labrum. The glenoid version is approximately -30 degrees. There is nonuniform but primarily high-grade cartilage loss along the posterior glenoid. There are also marginal osteophytes posteriorly. Similarly, there is nonuniform up to high-grade cartilage loss throughout the superior medial humeral head. Osteophytes along the inferior aspect of the humeral head. Overall moderate osteoarthritis. The posterior labrum is enlarged. There is also fluid extending along the base of the posterior labrum indicative of nondisplaced tear. There is a fluid collection between the labrum and the glenoid which could reflect a synovial recess or ganglion cyst measuring up to 8 x 4 x 18 mm extending along the length of the posterior labrum. There is additional heterogeneity of the superior labrum likely reflecting nondisplaced tearing anterior to posterior. There is a mild joint effusion and synovitis. MR/MR shoulder LT wo con IMPRESSION: 1. Moderate osteoarthritis of the glenohumeral joint. 2. [id number]-[id number] hypoplasia of the posterior glenoid with resultant enlargement of the posterior labrum. 3. Nondisplaced tear of the posterior labrum. Additional nondisplaced tear of the superior labrum. 4. Complete tear of the intra-articular portion of the biceps tendon with distal retraction. 5. Mild arthrosis of the acromioclavicular joint. 6. Lipomatous mass within or deep to the subacromial-subdeltoid bursa and deep to the deltoid muscle. This most likely reflects a lipoma. Consider followup perhaps in 1 year to ensure stability of this likely benign lesion. The possibility of a well-differentiated liposarcoma is extremely rare. 7. Mild subacromial-subdeltoid bursitis. Electronically signed by: Santana Dixon MD 12/19/2023 11:11 AM EDT
== END 2023-12-17 07:47 | disposition home or self-care (01) ==
LOC: HO.MRI 07:46
PROVIDERS: PCP Internal Medicine; Visit Provider Orthopaedic Surgery
DX: M25.512 Pain in left shoulder (principal)
CPT/HCPCS: 73221

== ENCOUNTER 2024-01-03 08:48 | Outpatient (AMB) | payer OTHER, SELFPAY ==
[2024-01-03 08:49] VITALS: BMI 30.2
--- NOTE | 2024-01-03 08:49 | A.OFFVIS_ITS ---
Vital Signs 01/03/24 08:49 Height 5 ft 6 in Weight 187 lb BMI 30.2 Intake Visit Reasons: OV-Shoulder LT, MRI review Intake Note: Shaun is a 48 year old male who presents with complaints of progressively worsening left shoulder pain and stiffness. The patient did undergo right total shoulder replacement surgery by Dr. Tucker on 03/14/2023. Reports mild intermittent discomfort in his right shoulder. He denies any fevers or chills. He did injure his left shoulder several months ago while lifting a heavy can of paint. Since that time he has had difficulty lifting his left hand above shoulder height. He has had cortisone injections in the past which gave him minimal relief. He has failed the last 6 weeks of conservative treatment. He has done physical therapy exercises which aggravated his pain. He has also tried Tylenol, anti-inflammatory medicines and lidocaine patches which gave him minimal relief. Allergies adhesive tape Allergy (Severe, Verified 01/03/24 08:50) Rash, eyes and ears went to ED shrimp Allergy (Severe, Verified 01/03/24 08:50) throat swelling latex [LATEX] Allergy (Intermediate, Verified 01/03/24 08:50) ITCHING Penicillins [PENICILLINS] Allergy (Intermediate, Verified 01/03/24 08:50) RASH lidocaine [From Lidoderm] Adverse Reaction (Verified 01/03/24 08:50) Rash Medication List - Last Reconciled 01/03/24 by Cristobal Green MD acetaminophen 650 mg (2 x 325 mg) PO Q6H PRN 30 days oxycodone 5 mg PO Q6H PRN PFSH Medical History Opacity of lung on imaging study Pleurodynia Rib pain Sleep apnea History of alcohol dependence Osteoarthritis Impaired glucose tolerance Bilateral primary osteoarthritis of knee Carpal tunnel syndrome Lumbar spondylosis Surgical History Hx of carpal tunnel repair Hx of hand surgery Hx of knee surgery Hx of knee surgery H/O right knee surgery H/O neck surgery Family History Mother Diabetes mellitus Father No problems noted. Social History Household Members: Spouse and Family Household Members Other:: 3 Housing: Other Housing Other:: town house Are you a primary emergency care tech to a significant other at home: No Do you presently have visiting nurse or other home services: No Alcohol intake: current Alcohol intake frequency: 0-2 drinks per day Alcohol type: beer and hard liquor Patient Tobacco Use Status: Never used Tobacco e-Cigarette/Vaping Use: Never Used Second Hand Smoke Exposure: No Advance Directives Date on File: 03/17/23 service: No Current occupational status: retired Cognitive needs: No Hearing needs: No Vision needs: No Physical Exam Vital Signs: BMI result Body Mass Index 30.2 Const Other: Well-nourished well-developed very friendly male awake alert and oriented x3 in no acute distress Extrem Other: Bilateral upper extremity examination shows good capillary refill, no skin lesions noted, normal sensation light touch Left shoulder examination shows decreased active and passive range of motion when compared to his right shoulder, 4+ out of 5 strength with supraspinatus testing, positive impingement signs, tenderness over his acromioclavicular joint, no instability Results Reviewed Results Reviewed: MRI of the patient's left shoulder show severe acromioclavicular joint narrowing, a type 2 acromion, mild to moderate glenohumeral joint degenerative changes Assessment & Plan Assessment & Plan (1) Impingement syndrome of left shoulder: Code(s): M75.42 - Impingement syndrome of left shoulder Category: Medical Plan Mr. Oconnor presents with progressively worsening left shoulder pain and stiffness due to impingement syndrome, acromioclavicular joint arthritis, glenohumeral joint arthritis and adhesive capsulitis. I had a lengthy discussion with the patient regarding the treatment options. At this point he has failed continued non operative treatments. The risks and benefits of left shoulder surgery were discussed at length with the patient. The patient wishes to proceed with surgery. Surgery will most likely involve left shoulder diagnostic arthroscopy with distal clavicle excision, acromioplasty, anterior capsular release and manipulation under anesthesia. The patient will be scheduled for next available date. He will continue with his range of motion exercises in the meantime. Feel free to call me at any time should questions regarding his orthopedic management arise. I spent 21 minutes in reviewing the patient's records and imaging studies, seeing the patient and documenting in the medical record. Coding Level of Care Code Est Pt Level 3 (28262) Complex EM visit Add On G2211 Diagnoses Impingement syndrome of left shoulder M75.42
== END 2024-01-03 09:00 | disposition home or self-care (01) ==
PROVIDERS: PCP Internal Medicine; Visit Provider Orthopaedic Surgery
DX: M75.42 Impingement syndrome of left shoulder (principal)
CPT/HCPCS: 99213; G2211

== ENCOUNTER → 2024-01-03 08:48 | Outpatient (BNVA) | payer OTHER, SELFPAY | PROVIDERS: PCP Internal Medicine; Visit Provider Orthopaedic Surgery | DX: M75.42 Impingement syndrome of left shoulder (principal) | CPT/HCPCS: 99212 ==

== ENCOUNTER 2024-01-23 11:15 | Outpatient (AMB) | payer OTHER, SELFPAY ==
--- NOTE | 2024-01-23 11:17 | A.OFFPC_ITS ---
Vital Signs 01/23/24 11:18 Height 5 ft 6 in Weight 193 lb BMI 31.1 BP 132/60 Blood Pressure Location Lt brachial Position Sitting Pulse 70 Pulse Source Pulse Oximeter Pulse Oximetry (%) 97 Oxygen Delivery Method Room Air Intake Visit Reasons: LT shoulder arthroscopy 02/23/24 - see comm Intake Note: Patient is here for a Pre-op for LT shoulder arthroscopy scheduled with Dr. Green on 02/23/24 Belt Weaver Required: Yes Belt Weaver Language: Lithuanian Allergies adhesive tape Allergy (Severe, Verified 01/23/24 11:32) Rash, eyes and ears went to ED shrimp Allergy (Severe, Verified 01/23/24 11:32) throat swelling latex [LATEX] Allergy (Intermediate, Verified 01/23/24 11:32) ITCHING Penicillins [PENICILLINS] Allergy (Intermediate, Verified 01/23/24 11:32) RASH lidocaine [From Lidoderm] Adverse Reaction (Verified 01/23/24 11:32) Rash Medication List - Last Reconciled 01/23/24 by Niyah Franklin PA-C No Known Home Meds Tobacco use date assessed: 01/23/24 Dental Screening Dental Screen Date: 01/23/24 Did you have a dental visit in the last 12 months?: No Did you have a dental problem in the last 6 months where you did not have access to dental care?: No HPI LT shoulder arthroscopy 02/23/24 - see comm HPI Details 48-year-old male with past medical histo ry of impaired glucose tolerance, obstructive sleep apnea who presents today with preop clearance. Patient of Dr. Read last seen September 2022. Patient requires blood work and EKG prior to clearance. Surgery: Left shoulder arthroscopy 02/23/[address] Green. Impaired glucose tolerance: Not currently on medical management. Ordered for updated A1c Obstructive sleep apnea: Uses CPAP nightly. will have occasional shortness of breath on exertion. Patient has no history of AL, CVA, CHF or formal diagnosis of diabetes mellitus. Not currently on anticoagulation. Patient does state occasionally while walking for prolonged periods of time or up a flight of stairs he will get shortness of breath however he typically only has to stop due to knee pain and not due to shortness of breath. This has been present for the last year. [facility]LY [facility] Medical History Opacity of lung on imaging study Pleurodynia Rib pain Sleep apnea History of alcohol dependence Osteoarthritis Impaired glucose tolerance Bilateral primary osteoarthritis of knee Carpal tunnel syndrome Lumbar spondylosis Surgical History Hx of carpal tunnel repair Hx of hand surgery Hx of knee surgery Hx of knee surgery H/O right knee surgery H/O neck surgery Family History Mother Diabetes mellitus Father No problems noted. Social History Household Members: Spouse and Family Household Members Other:: 3 Housing: Other Housing Other:: [facility] Are you a primary day care aide to a significant other at home: No Do you presently have visiting nurse or other home services: No Alcohol intake: current Alcohol intake frequency: 0-2 drinks per day Alcohol type: beer and hard liquor Patient Tobacco Use Status: Never used Tobacco e-Cigarette/Vaping Use: Never Used Second Hand Smoke Exposure: No Advance Directives Date on File: 03/17/23 service: No Current occupational status: retired Cognitive needs: No Hearing needs: No Vision needs: No Questionnaire Thrive Questionnaire Date Thrive assessed: 03/15/23 AUDIT C Alcohol Use Questionnaire (AUDIT-C) 1. How often do you have a drink containing alcohol?: 2-3 times a week 2. How many drinks containing alcohol do you have on a typical day when you are drinking?: 5 or 6 3. How often do you have six or more drinks on one occasion?: Weekly Total Score: 8 Score Reviewed/Action Taken: Yes ROSANA-7 AMB Questionnaire ROSANA-7 Date ROSANA - 7 assessed: 09/22/22 Source: Developed by Drs. Kennedy Rivera, Ayala English, Akash Hollis and colleagues, with an educational ana from [employer]. Review of Systems Const Denies body aches, Denies fatigue, Denies fever(s), Denies frequent falls, Denies headache(s) and Denies weakness Eyes Reports no additional complaints and Denies change in vision ENT Denies dysphagia, Denies dizziness, Denies facial pain, Denies headache(s), Denies nasal congestion and Denies odynophagia Card Denies chest pain, Denies syncope, Denies irregular heart rhythm, Denies leg edema, Denies lightheadedness, Denies dyspnea and Reports dyspnea on exertion Resp Denies cough, Denies dyspnea and Reports dyspnea on exertion GI Denies constipation, Denies dysphagia, Denies dyspepsia, Denies diarrhea, Denies nausea, Denies odynophagia and Denies vomiting Denies dysuria, Denies urinary frequency, Denies urinary hesitancy and Denies urinary urgency Musc Denies back pain and Denies myalgias Skin/Breast Reports system reviewed and no additional complaints, except as documented Neuro Denies dizziness, Denies syncope, Denies frequent falls, Denies headache(s) and Denies weakness Psych Reports no additional complaints Endo Denies fatigue Physical exam (Primary Care) Vital Signs: Last Vital Signs Pulse 70 01/23/24 11:18 BP 132/60 01/23/24 11:18 Pulse Ox 97 01/23/24 11:18 Oxygen Delivery Method Room Air 01/23/24 11:18 BMI result Body Mass Index 31.1 Tobacco/Smoking Status: Tobacco use Status Tobacco use date assessed 01/23/24 01/23/24 11:19 Patient Tobacco Use Status Never used Tobacco 01/23/24 11:19 e-Cigarette/Vaping Use Never Used 01/23/24 11:19 Thrive Assessment: Date of Thrive Assessment Date Thrive assessed 03/15/23 01/23/24 11:19 Const General: cooperative, healthy appearing, comfortable and no acute distress Orientation/consciousness: patient oriented x3 HENMT Head: Yes normocephalic Ears: hearing grossly normal bilaterally, external ears normal, TM's normal bilaterally and EAC's normal General nose exam: Normal external nose present Face and sinus: Yes normal facial exam and Yes sinuses nontender Mouth: Normal oral and palatal mucosa present and tongue normal Throat: Yes posterior oropharynx normal Eyes General: appearance normal, both eyes and all related structures Conjunctivae: conjunctivae normal Pupils: Equal, round and reactive pupils present EOM: EOMs intact bilaterally and No Nystagmus present Neck Neck: Yes normal visual inspection, Yes full ROM and Yes no lymphadenopathy Chest Chest palpation & inspection: normal inspection of the chest Resp Effort & Inspection: normal respiratory effort Auscultation: clear to auscultation bilaterally, no crackles, no rales, no rhonchi, no wheezes and breath sounds present Cardio Rate: regular rate Rhythm: regular rhythm Peripheral pulses: radial pulses present and dorsalis pedis present GI Inspection: Yes normal to inspection and No Abdominal wall edema Palpation (GI): Soft to palpation, not firm and nontender Auscultation: normal bowel sounds Rectal Exam - Male: Yes deferred General: Yes no CVA tenderness Back/Spine/Pelvis Back: no CVA tenderness Skin General skin exam: no rashes or lesions noted Neuro General: patient oriented x3 Cranial nerves: Yes Equal, round and reactive pupils present, Yes Midline tongue present, Yes Ability to bilaterally elevate shoulders present and No Nystagmus present Gait exam (Neuro): Normal gait present Extrem General: Yes normal to inspection, Yes full ROM, No no pedal edema and No edema Psych Speech and movement: Normal speech and movement present Affect: normal affect Insight: Good insight present (Psych) Judgement: Good judgement present (Psych) Coding Level of Care Code Est Pt Level 4 (77110) Diagnoses Preoperative clearance Z01.818 Dyspnea on exertion R06.09 Assessment & Plan Assessment & Plan (1) Preoperative clearance: Code(s): Z01.818 - Encounter for other preprocedural examination Category: Medical Plan: Regarding preop clearance, the patient is at moderate risk for proposed surgery due to age, obesity and CASIE. Reviewed with the patient that no surgery is completely free of risk and that this examination is to assist the surgeon in reviewing informed consent. Patient is nondiabetic, takes no disease modifying drugs, and is not on any anticoagulants or NSAIDs. He has undergone surgery in the past with no complications. Blood work and EKG has been ordered an addendum will be added once reviewed. (2) Dyspnea on exertion: Code(s): R06.09 - Other forms of dyspnea Category: Medical Plan: Patient will have occasional dyspnea on exertion typically with walking prolonged periods of time and while walking upstairs. He states he can make up a flight of stairs without stopping however does have to stop often due to knee pain not related to the breathing. Ordered for pulmonary function testing for further evaluation and advised patient to follow up if this worsens or persists. Plan This note was constructed using voice recognition software. While every effort has been made to ensure accuracy and dive superintendent, still areas may have been included sometimes these areas may affect the content or meeting of the given symptoms. Total time spent caring for the patient today was 30 minutes. This includes time spent before the visit reviewing the chart, time spent during the visit, and time spent after the visit and documentation. Orders: Orders ECG 12 lead EKG Today Z01.818 - Encounter for other preprocedural examination Complete Blood Count Auto Diff Today Z01.818 - Encounter for other preprocedural examination Lipid Panel Today Z01.818 - Encounter for other preprocedural examination Hemoglobin A1c Today R73.02 - Impaired glucose tolerance (oral), Z01.818 - Encounter for other preprocedural examination Comprehensive Met. Panel Today Z01.818 - Encounter for other preprocedural examination PFT pulmonary function test Today Z01.818 - Encounter for other preprocedural examination
[2024-01-23 11:18] VITALS: BP 132/60; PULSE 70; O2SAT 97; BMI 31.1
== END 2024-01-23 11:43 | disposition home or self-care (01) ==
PROVIDERS: PCP Internal Medicine
DX: Z01.818 Encounter for other preprocedural examination (principal); R06.09 Other forms of dyspnea

== ENCOUNTER → 2024-01-23 11:15 | Outpatient (BNVA) | payer OTHER, SELFPAY | PROVIDERS: PCP Internal Medicine | DX: Z01.818 Encounter for other preprocedural examination (principal); R06.09 Other forms of dyspnea | CPT/HCPCS: 99212 ==

== ENCOUNTER 2024-02-06 08:12 | Outpatient (REF) | payer OTHER, SELFPAY ==
[2024-02-06 08:30] LABS: MANUAL DIFF FLAG NO
--- NOTE | 2024-02-06 08:33 | ECG_ITS ---
Test Reason : PREOP Blood Pressure : / mmHG Vent. Rate : 060 BPM Atrial Rate : 060 BPM P-R Int : 142 ms QRS Dur : 094 ms QT Int : 404 ms P-R-T Axes : 051 004 -17 degrees QTc Int : 404 ms Normal sinus rhythm Minimal voltage criteria for LVH, may be normal variant ( Bozman product ) Nonspecific T wave abnormality Abnormal ECG When compared with ECG of 27-AUG-2023 08:43, No significant change was found Referred By: Niyah Franklin Electronically Signed By:ROBE SHI MD
[2024-02-06 08:56] LABS: Basophils Absolute Auto 0.1 X10*3/uL (0.0-0.2); Eosinophils Absolute Auto 0.8 X10*3/uL (0.0-0.4); Eosinophils Percent Auto 13.6 % (0-4); Hemoglobin 14.1 g/dl (14.0-18.0); Imm Gran Abs Auto 0.01 X10*3/uL (0.00-0.03); Imm Gran Pct Auto 0.2 % (0.0-0.4); Lymphocytes Absolute Auto 1.9 X10*3/uL (1.2-4.9); Mean Corpuscular Hemoglobin 27.8 pg (27.0-33.0); Mean Corpuscular Volume 86.6 fL (80.0-98.0); Mean Platelet Volume 10.9 fL (9.4-12.4); Monocytes Absolute Auto 0.6 X10*3/uL (0.1-1.2); Monocytes Percent Auto 10.4 % (2-11); Neutrophils Absolute Auto 2.6 x10*3/uL (2.0-8.3); Neutrophils Percent Auto 43.8 % (45-73); Platelet Count 265 X10*3/uL (160-400); Red Blood Count 5.08 X10*6/uL (4.60-5.80); Red Cell Distribution Width 14.6 % (11.0-16.0)
[2024-02-06 09:09] LABS: Estimated Average Glucose 117 mg/dL; Hemoglobin A1C 140.6265 umol/L; Hemoglobin A1c % 5.7 % (<6.0); Total Hemoglobin (HGBA1C) 3629.0931 umol/L
[2024-02-06 09:24] LABS: Alanine Aminotransferase 29 U/L (0-40); Albumin Level 4.1 g/dL (3.5-5.0); Alkaline Phosphatase 77 U/L (39-117); Anion Gap 8 (12-20); Aspartate Amino Transferase 27 U/L (5-37); Bilirubin Total 0.3 mg/dL (0.0-1.0); Blood Urea Nitrogen 14 mg/dL (9-16); Carbon Dioxide 32 mmol/L (22-29); Chloride 105 mmol/L (96-108); Cholesterol 178 mg/dL (<200); Estimated Glomerular Filt Rate > 60; Glucose Random 99 mg/dL (60-115); HDL Cholesterol 56 mg/dL (>40); LDL Cholesterol Calculated 107 mg/dL (<100); Sodium 140 mmol/L (135-145); Total Protein 7.6 g/dL (6.5-8.0); Triglycerides 77 mg/dL (<150)
== END 2024-02-06 08:13 | disposition home or self-care (01) ==
LOC: HO.LAB 08:12
DX: Z01.818 Encounter for other preprocedural examination (principal); R73.02 Impaired glucose tolerance (oral)
CPT/HCPCS: 36415; 80053; 80061; 83036; 85025; 93005

== ENCOUNTER → 2024-02-06 08:33 | Outpatient (BNV) | payer OTHER, SELFPAY | PROVIDERS: Visit Provider Internal Medicine Cardiovascular Disease | DX: R94.31 Abnormal electrocardiogram [ECG] [EKG] (principal) | CPT/HCPCS: 93010 ==

== ENCOUNTER 2024-02-15 10:57 | Outpatient (REF) | payer OTHER, SELFPAY ==
--- NOTE | 2024-02-15 11:02 | PFT_ITS ---
Flows: FEV1: 73 % of predicted at 2.50 L FVC: 74 % of predicted at 3.17 L FEV1/FVC: 79 % Bronchodilator response: Absent Volumes: Total lung capacity: 76 % of predicted at 4.81 L Residual volume: 99 % of predicted at 1.64 L Slow vital capacity: 68 % of predicted at 3.17 L Expiratory reserve volume: 41 % of predicted at 0.49 L Diffusion capacity: Normal Impression: Moderate restrictive ventilatory defect with no bronchodilator response. Decreased expiratory reserve volume suggests extrathoracic restriction likely secondary to abdominal obesity. MTDD
[2024-02-15 14:38] VITALS: PULSE 77; O2SAT 100
== END 2024-02-15 10:58 | disposition home or self-care (01) ==
LOC: HO.RESP 10:57
DX: Z01.818 Encounter for other preprocedural examination (principal)
CPT/HCPCS: 94010; 94640; 94727; 94729

== ENCOUNTER → 2024-02-15 11:02 | Outpatient (BNV) | payer OTHER, SELFPAY | PROVIDERS: Visit Provider Internal Medicine Pulmonary Disease | DX: R06.09 Other forms of dyspnea (principal) | CPT/HCPCS: 94060; 94727; 94729 ==

== ENCOUNTER 2024-02-16 07:59 | Day surgery (SDC) | payer OTHER, SELFPAY ==
[2024-02-05 14:06] VITALS: BMI 31.0
[2024-02-16 08:11] VITALS: BP 174/93; PULSE 89; RESP 16; TEMP 36.7; O2SAT 97; BMI 30.9
--- NOTE | 2024-02-16 08:45 | HO.ANESPROP2 ---
Documented by User: Concepción Cazares NP 02/14/24 12:37 HPI - Anesthesia Eval Consult details Narrative: 48yo M for Left Shoulder Arthroscopy distal clavicle excision, Acromioplasty, shoulder release Medically optimized per PCP s/p total shoulder 03/2023 with GA-ETT 7 PMFSH Active Problems Active Problems: All Active Problems Dyspnea on exertion (Acute) Impingement syndrome of left shoulder (Acute) Left shoulder pain (Acute) H/O total shoulder replacement (Acute) Osteoarthritis of right shoulder (Acute) Preoperative clearance (Acute) Screen for colon cancer (Acute) Alcohol abuse (Acute) Physical exam (Acute) Epidermal inclusion cyst (Acute) Osteoarthritis of left shoulder (Acute) Lump of skin of back (Acute) Lipoma (Acute) Chronic left shoulder pain (Acute) Chronic right shoulder pain (Acute) Right shoulder pain (Acute) Polyarthralgia (Acute) Sleep apnea (Acute) Impaired glucose tolerance (Acute) Bilateral primary osteoarthritis of knee (Acute) Lumbar spondylosis (Acute) Past Medical History Medical History (Updated 02/05/24 @ 14:14 by Adela Reynoso RN) Sleep apnea History of alcohol dependence Osteoarthritis Opacity of lung on imaging study Pleurodynia Rib pain Impaired glucose tolerance Bilateral primary osteoarthritis of knee Carpal tunnel syndrome Lumbar spondylosis Family History Family History Mother Diabetes mellitus Father No problems noted. Family history of problems with anesthesia: No Surgical History Surgical History (Updated 02/16/24 @ 08:17 by Tesha Henson RN) History of appendectomy History of ankle surgery History of total replacement of right shoulder joint (03/14/23) Hx of carpal tunnel repair Hx of hand surgery Hx of knee surgery Hx of knee surgery H/O right knee surgery H/O neck surgery History of Problems with Anesthesia: No Social History Social History (Updated 02/05/24 @ 14:11 by Adela Reynoso RN) Household Members: Spouse and Family Household Members Other:: 3 Housing: Other Housing Other:: town house Are you a primary pharmacy customer care specialist to a significant other at home: No Do you presently have visiting nurse or other home services: No Alcohol intake: current Alcohol intake frequency: 0-2 drinks per day Alcohol type: beer and hard liquor Patient Tobacco Use Status: Never used Tobacco e-Cigarette/Vaping Use: Never Used Second Hand Smoke Exposure: No Use of substances other than those prescribed or required for medical reasons: No Have you been hit, kicked, punched, or otherwise hurt by someone within the past year? If so, by whom?: No Are you DNR?: No Advance Directives: Yes Advance Directives Information Provided: No Advance Directives on File: Yes Advance Directives Date on File: 03/17/23 Recently lost weight without trying: No service: No Current occupational status: retired Cognitive needs: No Hearing needs: No Vision needs: No Meds Allergies Allergy/AdvReac Type Severity Reaction Status Date / Time adhesive tape Allergy Severe Rash, eyes Verified 02/16/24 08:10 and ears went to ED shrimp Allergy Severe throat Verified 02/16/24 08:10 swelling latex [LATEX] Allergy Intermediate ITCHING Verified 02/16/24 08:10 Penicillins [PENICILLINS] Allergy Intermediate RASH Verified 02/16/24 08:10 lidocaine [From Lidoderm] AdvReac Intermediate Rash Verified 02/16/24 08:17 Home Medications ?Medication ?Instructions ?Recorded ?Confirmed ?Last Taken ?Type No Known Home Meds 01/23/24 02/16/24 Unknown History Exam Height,Weight and Vital Signs: Height 5 ft 6 in Weight 87.09 kg Pertinent Lab Results Pertinent Lab Results: Laboratory Tests 02/06/24 08:28 WBC 6.0 Hgb 14.1 Hct 44.0 Plt Count 265 Sodium 140 Potassium 5.0 D Chloride 105 Carbon Dioxide 32 H BUN 14 Creatinine 0.95 Narrative Narrative: EKG 02/2024 Vent. Rate : 060 BPM Atrial Rate : 060 BPM P-R Int : 142 ms QRS Dur : 094 ms QT Int : 404 ms P-R-T Axes : 051 004 -17 degrees QTc Int : 404 ms Normal sinus rhythm Minimal voltage criteria for LVH, may be normal variant ( Prashant product ) Nonspecific T wave abnormality Abnormal ECG When compared with ECG of 27-AUG-2023 08:43, No significant change was found Assessment and Plan Assessment Anesthesia Assessment: Chart Reviewed Final Anesthetic Review Family History of Problems with Anesthesia: No History of Problems with Anesthesia: No Documented by User: Haylee Henderson DO 02/16/24 08:51 [facility] Past Medical History Medical History (Updated 02/05/24 @ 14:14 by Adela Reynoso, SANTI) Sleep apnea History of alcohol dependence Osteoarthritis Opacity of lung on imaging study Pleurodynia Rib pain Impaired glucose tolerance Bilateral primary osteoarthritis of knee Carpal tunnel syndrome Lumbar spondylosis Family History Family History Mother Diabetes mellitus Father No problems noted. Family history of problems with anesthesia: No Surgical History Surgical History (Updated 02/16/24 @ 08:17 by Tesha Henson RN) History of appendectomy History of ankle surgery History of total replacement of right shoulder joint (03/14/23) Hx of carpal tunnel repair Hx of hand surgery Hx of knee surgery Hx of knee surgery H/O right knee surgery H/O neck surgery History of Problems with Anesthesia: No Social History Social History (Updated 02/05/24 @ 14:11 by Adela Reynoso RN) Household Members: Spouse and Family Household Members Other:: 3 Housing: Other Housing Other:: town house Are you a primary pharmacy customer care specialist to a significant other at home: No Do you presently have visiting nurse or other home services: No Alcohol intake: current Alcohol intake frequency: 0-2 drinks per day Alcohol type: beer and hard liquor Patient Tobacco Use Status: Never used Tobacco e-Cigarette/Vaping Use: Never Used Second Hand Smoke Exposure: No Use of substances other than those prescribed or required for medical reasons: No Have you been hit, kicked, punched, or otherwise hurt by someone within the past year? If so, by whom?: No Are you DNR?: No Advance Directives: Yes Advance Directives Information Provided: No Advance Directives on File: Yes Advance Directives Date on File: 03/17/23 Recently lost weight without trying: No service: No Current occupational status: retired Cognitive needs: No Hearing needs: No Vision needs: No Meds Allergies Allergy/AdvReac Type Severity Reaction Status Date / Time adhesive tape Allergy Severe Rash, eyes Verified 02/16/24 08:10 and ears went to ED shrimp Allergy Severe throat Verified 02/16/24 08:10 swelling latex [LATEX] Allergy Intermediate ITCHING Verified 02/16/24 08:10 Penicillins [PENICILLINS] Allergy Intermediate RASH Verified 02/16/24 08:10 lidocaine [From Lidoderm] AdvReac Intermediate Rash Verified 02/16/24 08:17 Home Medications ?Medication ?Instructions ?Recorded ?Confirmed ?Last Taken ?Type No Known Home Meds 01/23/24 02/16/24 Unknown History Exam Exam Date and Time: 02/16/24 0845 Height,Weight and Vital Signs: Height 5 ft 6 in Weight 87.09 kg Vital Signs Temperature 98.1 F 02/16/24 08:11 Pulse Rate 89 02/16/24 08:11 Respiratory Rate 16 02/16/24 08:11 Blood Pressure 174/93 H 02/16/24 08:11 Pulse Oximetry 97 02/16/24 08:11 Oxygen Delivery Method Room Air 02/16/24 08:11 Temperature 98.1 F 02/16/24 08:11 Pulse Rate 89 02/16/24 08:11 Respiratory Rate 16 02/16/24 08:11 Blood Pressure 174/93 H 02/16/24 08:11 Pulse Oximetry 97 02/16/24 08:11 Oxygen Delivery Method Room Air 02/16/24 08:11 Airway Mallampati Class: II TM Dist: >3cm Neck ROM: Full Loose/Missing/Broken Teeth: No (patient denies any loose or broken teeth) Heart: S1S2 Lungs: CTAB Assessment and Plan Assessment Anesthesia Assessment: Anesthesia Plan Discussed and Chart Reviewed Final Anesthetic Review Family History of Problems with Anesthesia: No History of Problems with Anesthesia: No NPO: Yes ASA Class: II Final Preanesthetic Review: No Changes in Pt Med Stat, Meds/Allgs Chart Reviewed, Consent Obtained/Reviewed and Anes Risks/Benef Reviewed Patient Risk: Low Procedure Risk: Low Anesthetic Plan Anesthetic Plan: GA, Regional Block (left brachial plexus block) and Agree w/ Assess. and Plan Disposition: Standard PACU
[2024-02-16] MEDS: Lactated Ringers 1,000 ML 100 ML IVCONT (08:52)
[2024-02-16 11:00] VITALS: BP 132/76; PULSE 92; RESP 16; TEMP 36.1; O2SAT 99
[2024-02-16 11:05] VITALS: BP 137/77; PULSE 91; RESP 18; O2SAT 99
[2024-02-16 11:10] VITALS: BP 142/77; PULSE 89; RESP 16; O2SAT 99
--- NOTE | 2024-02-16 11:13 | PM.OP ---
Brief Operative Note Date of Service: 02/16/24 Pre-op diagnosis: Left shoulder impingement syndrome, left shoulder acromioclavicular joint arthritis, left shoulder glenohumeral joint arthritis, left shoulder adhesive capsulitis Post-op diagnosis: same Procedure: Left shoulder diagnostic arthroscopy with left shoulder arthroscopic distal clavicle excision, left shoulder arthroscopic acromioplasty, left shoulder arthroscopic glenohumeral joint debridement, left shoulder arthroscopic anterior capsular release, left shoulder manipulation under anesthesia Implants: none Surgeon: Cristobal Green MD Anesthesia: GETA and regional Was an Flanging Machine Operator used for this Procedure?: No Estimated blood loss (mL): 15 Pathology: none sent Condition: stable Disposition: PACU
[2024-02-16 11:15] VITALS: BP 124/78; PULSE 88; RESP 16; O2SAT 99
--- NOTE | 2024-02-16 11:16 | P.OP_ITS ---
Operative Note Operative Note Date of Service: 02/16/24 Narrative: After the patient was identified as Shaun Chavira and his left shoulder was initialed by myself the patient was brought to the holding area where a left shoulder interscalene regional block was performed by the anesthesiologist in routine fashion. The patient was then brought to the operating room where general anesthesia was induced by the anesthesiologist in routine fashion. Because of the patient's allergy to penicillins he was given 900 mg of IV clindamycin preoperatively for infection prophylaxis. Examination under anesthesia of the patient's left shoulder showed decreased range of motion when compared to the right shoulder. The patient's left shoulder had forward flexion to 90 degrees compared to 160 degrees, external rotation to 20 degrees compared to 50 degrees, and internal rotation to 30 degrees compared to 40 degrees. The patient was gently positioned in the beach chair position with all bony prominences well padded. The patient's left shoulder region and upper extremity were prepped and draped in sterile fashion. A formal time-out was completed. A #11 scalpel blade was used to make a posterior portal 2 cm inferior and 1 cm medial to the posterolateral corner of the acromion. Blunt trocar technique was used to enter the glenohumeral joint in routine fashion. An anterior portal was made just lateral to the coracoid process after proper positioning was confirmed using a spinal needle. Diagnostic arthroscopy showed diffuse grades 3 and 4 degenerative changes of the humeral head articular surface as well as diffuse grades 2 and 3 degenerative changes of the glenoid articular surface. The articular surfaces of the glenoid and humeral head were then made smooth using the arthroscopic shaver. There was no evidence of rotator cuff tearing. There was no evidence of injury to the biceps tendon or its insertion onto the glenoid. There was inflammation of the anterior joint capsule consistent with adhesive capsulitis. The ArthroCare Wand was then used to perform an anterior c apsular release between the inferior border of the biceps tendon and the superior border of the subscapularis tendon. The arthroscope was then placed from the posterior portal into the subacromial space. A lateral portal was made 2 fingerbreadths lateral to the anterior lateral corner of the acromion. The ArthroCare Wand was used to ablate soft tissues along the undersurface of the acromion as well as to excise the coracoacromial ligament. There was a sharp spur along the undersurface of the acromion which was removed using the hooded bur. The arthroscope was then placed into the lateral portal and the acromioplasty was completed with the bur in the posterior portal using the posterior aspect of the acromion as a cutting block. The ArthroCare Wand was then brought in through the anterior portal and was used to ablate soft tissues along the acromioclavicular joint and distal clavicle. The posterior and superior ligamentous structures were left intact. A distal clavicle excision of 8 mm was performed using the hooded bur. Any remaining bursal tissue was removed using the arthroscopic shaver. The subacromial space was irrigated and then drained. All arthroscopic instruments were removed. A gentle manipulation under anesthesia was then performed. Full passive range of motion was attained. The 3 portals were closed with 3-0 nylon interrupted suture. The subacromial space was injected with Marcaine. Dry sterile dressing was placed over all incisions. The patient's left upper extremity was placed into a sling. The patient was awoken and extubated in the operating room. The patient was transferred to the recovery room in stable condition.
[2024-02-16 11:30] VITALS: BP 137/81; PULSE 83; RESP 18; TEMP 36.1; O2SAT 96
== END 2024-02-16 12:15 | disposition home or self-care (01) ==
PROVIDERS: PCP Family Medicine; Visit Provider Orthopaedic Surgery
PROC: (CPT 29805; principal; 2024-02-16 10:20)
DX: M75.42 Impingement syndrome of left shoulder (principal); M75.02 Adhesive capsulitis of left shoulder; M19.012 Primary osteoarthritis, left shoulder; G89.29 Other chronic pain; Z87.828 Personal history of other (healed) physical injury and trauma; R73.02 Impaired glucose tolerance (oral); R07.81 Pleurodynia; Z96.611 Presence of right artificial shoulder joint; F10.10 Alcohol abuse, uncomplicated; G47.33 Obstructive sleep apnea (adult) (pediatric); Z99.89 Dependence on other enabling machines and devices; Z79.899 Other long term (current) drug therapy; L23.1 Allergic contact dermatitis due to adhesives; Z91.040 Latex allergy status; Z88.0 Allergy status to penicillin; Z98.890 Other specified postprocedural states; R06.09 Other forms of dyspnea
CPT/HCPCS: 29824; 29825; 29826; J0131; J0171; J0736; J1100; J1885; J2003; J2250; J2371; J2405; J2704; J2795; J3010

== ENCOUNTER → 2024-02-16 07:59 | Outpatient (BNV) | payer OTHER, SELFPAY | PROVIDERS: PCP Family Medicine; Visit Provider Orthopaedic Surgery | DX: M75.42 Impingement syndrome of left shoulder (principal); M19.012 Primary osteoarthritis, left shoulder; M75.02 Adhesive capsulitis of left shoulder | CPT/HCPCS: 29824; 29826 ==

== ENCOUNTER 2024-02-16 15:51 | Emergency (ER) | payer OTHER, SELFPAY ==
[2024-02-16 16:21] VITALS: BP 124/76; PULSE 96; RESP 16; TEMP 36.8; O2SAT 96; BMI 31.3
--- NOTE | 2024-02-16 16:22 | ED.GENADULT ---
HPI - General Adult General Chief complaint: Extremity Problem Stated complaint: Had surgery today, feeling unwell. Time Seen by Provider: 02/16/24 20:30 Source: patient Mode of arrival: ambulatory Limitations: no limitations History of Present Illness ED Provider: irving SAMANO narrative: Patient apparently had left shoulder arthroscopic acromioplasty earlier today discharged home does have history of carpal tunnel in the past comes here as he is feeling tingling sensation in the left wrist in the index finger no increase in shoulder Related Data Previous Rx's ?Medication ?Instructions ?Recorded oxycodone 5 mg tablet 10 mg (2 x 5 mg) PO Q4H PRN pain 02/16/24 #40 tabs Allergies Allergy/AdvReac Type Severity Reaction Status Date / Time adhesive tape Allergy Severe Rash of Verified 02/16/24 16:27 eyes and ears, Went to ED shrimp Allergy Severe Throat Verified 02/16/24 16:27 swelling latex [LATEX] Allergy Intermediate ITCHING Verified 02/16/24 16:27 Penicillins [PENICILLINS] Allergy Intermediate RASH Verified 02/16/24 16:27 lidocaine [From Lidoderm] AdvReac Intermediate Rash Verified 02/16/24 16:27 Review of Systems Review of Systems: Yes all other systems are reviewed and are negative PMFSH Past Medical History Medical History Sleep apnea History of alcohol dependence Osteoarthritis Opacity of lung on imaging study Pleurodynia Rib pain Impaired glucose tolerance Bilateral primary osteoarthritis of knee Carpal tunnel syndrome Lumbar spondylosis Surgical History History of appendectomy History of ankle surgery 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 Social History Social History Household Members: Spouse and Family Household Members Other:: 3 Housing: Other Housing Other:: town house Are you a primary home care specialist to a significant other at home: No Do you presently have visiting nurse or other home services: No Alcohol intake: current Alcohol intake frequency: 0-2 drinks per day Alcohol type: beer and hard liquor Patient Tobacco Use Status: Never used Tobacco Smoked in Last 30 Days: No e-Cigarette/Vaping Use: Never Used Second Hand Smoke Exposure: No Use of substances other than those prescribed or required for medical reasons: No Advance Directives: Yes Advance Directives on File: Yes Advance Directives Date on File: 03/17/23 Do you have a plan to hurt others: No Plan service: No Current occupational status: retired Cognitive needs: No Hearing needs: No Vision needs: No Physical Exam ED Vital Signs: Vital Signs - 24 hr 02/16/24 16:21 02/16/24 20:16 Temperature 98.3 F 98.4 F Pulse Rate 96 93 Respiratory Rate 16 16 Blood Pressure 124/76 128/64 Pulse Oximetry 96 95 Oxygen Delivery Method Room Air Room Air BMI result Body Mass Index 31.3 Appearance: Alert. Oriented X3. No acute distress. ENT: Pharynx normal. Oral Mucosa moist Neck: Normal inspection. Neck supple. No midline tenderness CVS: Normal heart rate and rhythm. Pulses normal. Respiratory: No respiratory distress. Equal air entry bilateral, no wheezing/rales/rhonchi Abdomen: Soft and nontender. Bowel sounds are present, no mass palpable, no CVA tenderness Skin: Skin warm and dry. Normal skin color. Normal skin turgor. Extremities: No lower extremity edema. No calf tenderness left arm status post acromial surgeon in the sling left wrist Tinel's sign positive Phalen sign positive woke up with tunnel no motor weakness Neuro: Oriented X 3. No motor deficit. Course Course Course Narrative: This is an RME performed by Reinaldo Maciel CNP: Additional HPI, ROS, PE not included below will be deferred to primary provider. Patient is a 48-year-old male who presents to the emergency department for evaluation, he reports this morning he [place] [facility] [place] left shoulder (Dr. Granados - left shoulder arthroscopic, impingement syndrome, AC arthritis, glenohumeral arthritis, adhesive capsulitis). After leaving hospital he began feeling numbness and tingling to the left arm radiating down his leg with a hot and cold sensation to the hand. He also states he began feeling palpitations about 1.5-2 hours after leaving the hospital. He denies any chest pain. He does admit to having shortness of breath and dyspnea on exertion though he reports that this has been ongoing, he had some form of pulmonary testing yesterday for evaluation of this, reports no worsening today. 2+ radial pulse bilaterally. No focal neurological deficits. Plan: Serum labs, EKG Medical Decision Making Lab Data 02/16/24 16:52 02/16/24 16:52 Labs: Lab Results 02/16/24 Range/Units 16:52 WBC 8.2 (4.8-10.8) X10*3/uL RBC 4.97 (4.60-5.80) X10*6/uL Hgb 14.0 (14.0-18.0) g/dl Hct 42.6 (42.0-52.0) % MCV 85.7 (80.0-98.0) fL MCH 28.2 (27.0-33.0) pg MCHC 32.9 (31.0-36.0) g/dl RDW 14.6 (11.0-16.0) % Plt Count 261 (160-400) X10*3/uL MPV 11.0 (9.4-12.4) fL Immature Gran % (Auto) 0.2 (0.0-0.4) % Neut % (Auto) 95.3 H (45-73) % Lymph % (Auto) 4.2 L (20-40) % [place] % (Auto) 0.2 L (2-11) % Eos % (Auto) 0.0 (0-4) % Baso % (Auto) 0.1 (0-2) % Lymph # (Auto) 0.3 L (1.2-4.9) X10*3/uL [place] # (Auto) 0.0 L (0.1-1.2) X10*3/uL Eos # (Auto) 0.0 (0.0-0.4) X10*3/uL Baso # (Auto) 0.0 (0.0-0.2) X10*3/uL Abs Immat Gran (auto) 0.02 (0.00-0.03) X10*3/uL Absolute Neuts (auto) 7.8 (2.0-8.3) x10*3/uL Absolute Nucleated RBC 0.000 (0.0-0.012) X10*3/uL Nucleated RBC % (auto) 0.0 (0.0-0.2) /100WBC Smear Tech's Comments VERIFIED PT 12.5 H (10.9-12.4) SEC INR 1.1 (0.9-1.1) Sodium 135 (135-145) mmol/L Potassium 4.0 (3.3-5.1) mmol/L Chloride 103 (96-108) mmol/L Carbon Dioxide 26 (22-29) mmol/L Anion Gap 10 L (12-20) BUN 15 (9-16) mg/dL Creatinine 1.03 (0.5-1.4) mg/dL Estim Creat Clear Calc 89.1 Estimated GFR > 60 Random Glucose 259 H (60-115) mg/dL Calcium 9.8 (8.4-10.2) mg/dL Total Bilirubin 0.3 (0.0-1.0) mg/dL AST 28 (5-37) U/L ALT 28 (0-40) U/L Alkaline Phosphatase 68 (39-117) U/L Troponin I High Sens < 2.7 (<3.5-35.0) ng/L Total Protein 7.4 (6.5-8.0) g/dL Albumin 4.1 (3.5-5.0) g/dL Discharge Plan Discharge Clinical Impression: Acute carpal tunnel syndrome of left wrist Patient Disposition: Home, Self-Care Instructions: Carpal Tunnel Surgery (DC) Additional Instructions: Wear the splint for support specially in the nighttime Follow up with Orthopedics for further management Prescriptions: No Action oxycodone 5 mg tablet 10 mg PO Q4H PRN (Reason: pain) Qty: 40 0RF Rx Instructions: Partial Fill upon patient request. Take 1-2 tabs every 4 hours as needed for pain after your left shoulder surgery Print Language: Citizen Of [place]
--- NOTE | 2024-02-16 16:28 | ECG_ITS ---
Test Reason : PALPITATION Blood Pressure : / mmHG Vent. Rate : 088 BPM Atrial Rate : 088 BPM P-R Int : 144 ms QRS Dur : 096 ms QT Int : 352 ms P-R-T Axes : 055 -14 061 degrees QTc Int : 425 ms Normal sinus rhythm Possible Left atrial enlargement Left ventricular hypertrophy ( R in aVL , [place] product ) Nonspecific T wave abnormality Abnormal ECG When compared with ECG of 06-FEB-2024 08:33, Nonspecific T wave abnormality has replaced inverted T waves in Inferior leads Nonspecific T wave abnormality now evident in Anterior leads Referred By: Dorothy Maciel Electronically Signed By:Mike He
[2024-02-16 17:11] LABS: Alanine Aminotransferase 28 U/L (0-40); Albumin Level 4.1 g/dL (3.5-5.0); Alkaline Phosphatase 68 U/L (39-117); Anion Gap 10 (12-20); Aspartate Amino Transferase 28 U/L (5-37); Bilirubin Total 0.3 mg/dL (0.0-1.0); Blood Urea Nitrogen 15 mg/dL (9-16); Calcium 9.8 mg/dL (8.4-10.2); Carbon Dioxide 26 mmol/L (22-29); Chloride 103 mmol/L (96-108); Creatinine Clr Calc Pharmacy 89.1; Estimated Glomerular Filt Rate > 60; Glucose Random 259 mg/dL (60-115); Sodium 135 mmol/L (135-145); Total Protein 7.4 g/dL (6.5-8.0)
[2024-02-16 17:14] LABS: INTERNATIONAL NORM RATIO 1.1 (0.9-1.1); Prothrombin Time 12.5 SEC (10.9-12.4)
[2024-02-16 17:21] LABS: Troponin-I High Sensitivity < 2.7 ng/L (<3.5-35.0)
[2024-02-16 17:30] LABS: Basophils Percent Auto 0.1 % (0-2); Hematocrit 42.6 % (42.0-52.0); Imm Gran Abs Auto 0.02 X10*3/uL (0.00-0.03); Imm Gran Pct Auto 0.2 % (0.0-0.4); Lymphocytes Absolute Auto 0.3 X10*3/uL (1.2-4.9); Lymphocytes Percent Auto 4.2 % (20-40); MANUAL DIFF FLAG SCAN; Mean Corpuscular HGB Conc 32.9 g/dl (31.0-36.0); Mean Corpuscular Hemoglobin 28.2 pg (27.0-33.0); Mean Corpuscular Volume 85.7 fL (80.0-98.0); Monocytes Percent Auto 0.2 % (2-11); Neutrophils Absolute Auto 7.8 x10*3/uL (2.0-8.3); Neutrophils Percent Auto 95.3 % (45-73); Platelet Count 261 X10*3/uL (160-400); Red Blood Count 4.97 X10*6/uL (4.60-5.80); Red Cell Distribution Width 14.6 % (11.0-16.0); SCAN SMEAR FLAG 1; White Blood Count 8.2 X10*3/uL (4.8-10.8)
[2024-02-16 17:31] LABS: SLIDE REVIEW VERIFIED
[2024-02-16 20:16] VITALS: BP 128/64; PULSE 93; RESP 16; TEMP 36.9; O2SAT 95
[2024-02-16 20:58] VITALS: BP 128/64; PULSE 93; RESP 16; TEMP 36.9; O2SAT 95
== END 2024-02-16 20:59 | disposition home or self-care (01) ==
PROVIDERS: Nurse Practitioner Family; Emergency Provider Internal Medicine; PCP Internal Medicine
DX: G56.02 Carpal tunnel syndrome, left upper limb (principal); R00.2 Palpitations; F45.8 Other somatoform disorders
CPT/HCPCS: 36415; 80053; 84484; 85025; 85610; 93005; 99283; 99285

== ENCOUNTER → 2024-02-16 16:28 | Outpatient (BNV) | payer OTHER, SELFPAY | PROVIDERS: Emergency Provider Internal Medicine; PCP Internal Medicine; Visit Provider Internal Medicine Cardiovascular Disease | DX: R94.31 Abnormal electrocardiogram [ECG] [EKG] (principal); I42.2 Other hypertrophic cardiomyopathy | CPT/HCPCS: 93010 ==

== ENCOUNTER 2024-03-14 11:44 | Outpatient (AMB) | payer OTHER, SELFPAY ==
--- NOTE | 2024-03-14 12:04 | A.OFFVIS_ITS ---
Vital Signs 03/14/24 12:05 Height 5 ft 6 in Weight 193 lb BMI 31.1 Intake Visit Reasons: PO LT shoulder 02/23/24 Intake Note: Shaun is a 48 year old male who presents today post-operatively after undergoing a left shoulder , DOS: 02/23/24. Patient reports he is doing well. He denies any fevers or chills. He continues with his home stretching program. The pat ient states that he missed his initial postoperative appointment. His sutures remain in. He is no longer taking narcotics for his discomfort. Allergies adhesive tape Allergy (Severe, Verified 03/14/24 12:12) Rash of eyes and ears, Went to ED shrimp Allergy (Severe, Verified 03/14/24 12:12) Throat swelling latex [LATEX] Allergy (Intermediate, Verified 03/14/24 12:12) ITCHING Penicillins [PENICILLINS] Allergy (Intermediate, Verified 03/14/24 12:12) RASH lidocaine [From Lidoderm] Adverse Reaction (Intermediate, Verified 03/14/24 12:12) Rash Medication List - Last Reconciled 03/14/24 by Cristobal Green MD oxycodone 10 mg (2 x 5 mg) PO Q4H PRN PFSH Medical History Sleep apnea History of alcohol dependence Osteoarthritis Opacity of lung on imaging study Pleurodynia Rib pain Impaired glucose tolerance Bilateral primary osteoarthritis of knee Carpal tunnel syndrome Lumbar spondylosis Surgical History History of appendectomy History of ankle surgery History of total replacement of right shoulder joint (03/14/23) Hx of carpal tunnel repair Hx of hand surgery Hx of knee surgery Hx of knee surgery H/O right knee surgery H/O neck surgery Family History Mother Diabetes mellitus Father No problems noted. Social History Household Members: Spouse and Family Household Members Other:: 3 Housing: Other Housing Other:: town house Are you a primary healthcare architect to a significant other at home: No Do you presently have visiting nurse or other home services: No Alcohol intake: current Alcohol intake frequency: 0-2 drinks per day Alcohol type: beer and hard liquor Patient Tobacco Use Status: Never used Tobacco e-Cigarette/Vaping Use: Never Used Second Hand Smoke Exposure: No Advance Directives Date on File: 03/17/23 service: No Current occupational status: retired Cognitive needs: No Hearing needs: No Vision needs: No Physical Exam Vital Signs: BMI result Body Mass Index 31.1 Extrem Other: Left shoulder examination shows almost full range of motion when compared to his right shoulder with minimal discomfort, the surgical incisions are well healed, slight redness around the incisions, no drainage Assessment & Plan Assessment & Plan (1) Left shoulder pain: Code(s): M25.512 - Pain in left shoulder Category: Medical Plan Mr. Oconnor is doing well after undergoing left shoulder arthroscopic surgery on 02/16/2024. His sutures were removed and Steri-Strips placed over his incisions. I did place him on Levaquin because of possible early cellulitis around his incision sites. He will contact me prior to his follow-up appointment in 4-6 weeks should the redness not resolve. Feel free to call me at any time should questions regarding his orthopedic management arise. Medications: New levofloxacin 500 mg PO DAILY 5 days 5 tabs 0RF Coding Level of Care Code Global (30705) Diagnoses Left shoulder pain M25.512
[2024-03-14 12:05] VITALS: BMI 31.1
== END 2024-03-14 12:27 | disposition home or self-care (01) ==
PROVIDERS: PCP Internal Medicine; Visit Provider Orthopaedic Surgery
DX: M25.512 Pain in left shoulder (principal)
CPT/HCPCS: 99024

== ENCOUNTER → 2024-03-14 11:44 | Outpatient (BNVA) | payer OTHER, SELFPAY | PROVIDERS: PCP Internal Medicine; Visit Provider Orthopaedic Surgery | DX: Z47.89 Encounter for other orthopedic aftercare (principal); M25.512 Pain in left shoulder | CPT/HCPCS: 99212 ==

== ENCOUNTER 2024-05-15 11:48 | Outpatient (AMB) | payer OTHER, SELFPAY ==
--- NOTE | 2024-05-15 11:52 | A.OFFVIS_ITS ---
Intake Visit Reasons: Left shoulder discomfort Intake Note: Shaun is a 49 year old male who presents with complaints of mild to moderate discomfort in his left shoulder after undergoing left shoulder arthroscopic surgery on 02/16/2024. He continues with his home stretching program. He denies any fevers or chills. Sample Hand Required: No Allergies adhesive tape Allergy (Severe, Verified 05/15/24 11:57) Rash of eyes and ears, Went to ED shrimp Allergy (Severe, Verified 05/15/24 11:57) Throat swelling latex [LATEX] Allergy (Intermediate, Verified 05/15/24 11:57) ITCHING Penicillins [PENICILLINS] Allergy (Intermediate, Verified 05/15/24 11:57) RASH lidocaine [From Lidoderm] Adverse Reaction (Intermediate, Verified 05/15/24 11:57) Rash Medication List - Last Reconciled 05/15/24 by Cristobal Grene MD levofloxacin 500 mg PO DAILY 5 days oxycodone 10 mg (2 x 5 mg) PO Q4H PRN PFSH Medical History Sleep apnea History of alcohol dependence Osteoarthritis Opacity of lung on imaging study Pleurodynia Rib pain Impaired glucose tolerance Bilateral primary osteoarthritis of knee Carpal tunnel syndrome Lumbar spondylosis Surgical History History of appendectomy History of ankle surgery History of total replacement of right shoulder joint (03/14/23) Hx of carpal tunnel repair Hx of hand surgery Hx of knee surgery Hx of knee surgery H/O right knee surgery H/O neck surgery Family History Mother Diabetes mellitus Father No problems noted. Social History Household Members: Spouse and Family Household Members Other:: 3 Housing: Other Housing Other:: town house Are you a primary home care attendant to a significant other at home: No Do you presently have visiting nurse or other home services: No Alcohol intake: current Alcohol intake frequency: 0-2 drinks per day Alcohol type: beer and hard liquor Patient Tobacco Use Status: Never used Tobacco e-Cigarette/Vaping Use: Never Used Second Hand Smoke Exposure: No Advance Directives Date on File: 03/17/23 service: No Current occupational status: retired Cognitive needs: No Hearing needs: No Vision needs: No Physical Exam Extrem Other: Left shoulder examination shows that the surgical incisions are well healed, no erythema, improve range of motion when compared to his last visit, no instability Assessment & Plan Assessment & Plan (1) Left shoulder pain: Code(s): M25.512 - Pain in left shoulder Category: Medical Plan Mr. Oconnor continues to do well after undergoing left shoulder arthroscopic surgery on 02/16/2024. He will continue with his home stretching program. I did refill his prescription for oxycodone to help with his discomfort. We will hold off on a cortisone injection for now. He will contact me prior to his follow-up appointment in 3 months should any questions or concerns arise. Feel free to call me at any time should questions regarding his orthopedic management arise. Medications: Changed From oxycodone Partial Fill upon patient request. Take 1-2 tabs every 4 hours as needed for pain after your left shoulder surgery 10 mg (2 x 5 mg) PO Q4H PRN 40 tabs 0RF pain To oxycodone Partial Fill upon patient request. Take 1-2 tabs every 4 hours as needed for pain after your left shoulder surgery 5 mg PO Q12H PRN 25 tabs 0RF pain Coding Level of Care Code Global (03620) Diagnoses Left shoulder pain M25.512
--- OUTSIDE RECORDS SUMMARY | 2024-05-15 13:39 | XMS_ITS ---
Author Organization [facility] Address [address] [place] [address] Care Team Providers Care Shuttle Operator Name Role Phone Deandra Griffin Primary Care Provider Unavailab Kennedy Malone Unavailable [phone] REASON FOR VISIT Patient presents today for a discuss colonoscopy Encounters Encounter Location Date Provider Diagnosis [facility] [address] [place] [id number] 08/29/2023 Kennedy Corona PLAN OF TREATMENT No Information
--- OUTSIDE RECORDS SUMMARY | 2024-05-15 13:40 | XMS_ITS ---
Author Organization [facility] Address [address] [place] [address] Care Team Providers Care Scarrer Name Role Phone Deandra Griffin Primary Care Provider Unavailab Kennedy Malone Unavailable [phone] REASON FOR VISIT no show Encounters Encounter Location Date Provider Diagnosis [facility] [address] [place] [address] 08/29/2023 Kennedy Corona PLAN OF TREATMENT No Information
--- OUTSIDE RECORDS SUMMARY | 2024-05-15 13:40 | XMS_ITS ---
Author Organization [facility] Address [address] [place] [address] Care Team Providers Care Cloth Finishing Range Tender Name Role Phone Deandra Griffin Primary Care Provider Unavailab Kennedy Malone Unavailable [phone] REASON FOR VISIT Patient presents today for a COLON SCREENING Encounters Encounter Location Date Provider Diagnosis [facility] [address] [place] [phone] 04/25/2023 Kennedy Corona PLAN OF TREATMENT No Information
--- OUTSIDE RECORDS SUMMARY | 2024-05-15 13:40 | XMS_ITS | Patient Health Record ---
Author Organization [facility] Address [address] [place] [address] Care Team Providers Care Mental Health Technician Name Role Phone Deandra Griffin Primary Care Provider Unavailab Kennedy Malone Unavailable [phone] REASON FOR REFERRAL No Information SOCIAL HISTORY Sex Assigned At : Social History Observation Description Sex Assigned At Unknown Encounters Encounter Location Date Provider Diagnosis [facility] [address] [place] [address] 08/29/2023 Kennedy Corona [facility] [address] [place] [address] 08/29/2023 Kennedy Corona PLAN OF TREATMENT No Information Insurance Providers Payer Name Payer Address Payer Phone Subscriber Number Group Number Insured Name Patient Relationship to Insured Coverage Start Date Coverage End Date [facility] [address] [place] [address] [id number] LADY FISHMAN Self - patient is the insured
== END 2024-05-15 12:13 | disposition home or self-care (01) ==
PROVIDERS: PCP Internal Medicine; Visit Provider Orthopaedic Surgery
DX: M25.512 Pain in left shoulder (principal)
CPT/HCPCS: 99024

== ENCOUNTER → 2024-05-15 11:48 | Outpatient (BNVA) | payer OTHER, SELFPAY | PROVIDERS: PCP Internal Medicine; Visit Provider Orthopaedic Surgery | DX: M25.512 Pain in left shoulder (principal) | CPT/HCPCS: 99212 ==

== ENCOUNTER 2024-05-22 14:13 | Outpatient (AMB) | payer OTHER, SELFPAY ==
--- NOTE | 2024-05-22 14:18 | A.OFFPC_ITS ---
Vital Signs 05/22/24 14:21 Height 5 ft 6 in Weight 198 lb BMI 32.0 BP 136/80 Blood Pressure Location Lt brachial Position Sitting Pulse 84 Pulse Source Pulse Oximeter Pulse Oximetry (%) 97 Oxygen Delivery Method Room Air Intake Visit Reasons: [facility] 3/3 bilateral Ptosis repair Primer And Powder Canning Leader Required: Yes Primer And Powder Canning Leader Language: Edge Plugger Name: Deandra Boss MD Information Interpreted: non-clinical & clinical Accompanied by: Self / Same As Patient Allergies adhesive tape Allergy (Severe, Verified 05/22/24 14:30) Rash of eyes and ears, Went to ED shrimp Allergy (Severe, Verified 05/22/24 14:30) Throat swelling latex [LATEX] Allergy (Intermediate, Verified 05/22/24 14:30) ITCHING Penicillins [PENICILLINS] Allergy (Intermediate, Verified 05/22/24 14:30) RASH lidocaine [From Lidoderm] Adverse Reaction (Intermediate, Verified 05/22/24 14:30) Rash Medication List - Last Reconciled 05/22/24 by Deandra Boss MD oxycodone 5 mg PO Q12H PRN Tobacco use date assessed: 05/22/24 Dental Screening Dental Screen Date: 05/22/24 Did you have a dental visit in the last 12 months?: No Did you have a dental problem in the last 6 months where you did not have access to dental care?: No Was dental information given to patient?: Patient has dentist HPI HPI Comments History of Present Illness Details The patient is a 49-year-old male presenting for a preoperative evaluation for scheduled bilateral ptosis correction next month. The ptosis has been affecting the patient's vision, and this procedure is planned to address the issue. The patient was prepared earlier for knee surgery which involved debridement, although no specific complications were noted during the visit about the past surgery. He has obstructive sleep apnea and is not compliant with his CPAP machine. Recently had shoulder surgery few months ago and did not had any complication. This is a low risk surgery and he is a low risk patient. Has 5-7 Mets of ADLs. EKG and labs pending for medical clearance. He has macular skin lesion in lower legs and I will refer him to Dermatology and gave him a cream. It is nonpruritic. [facility] Medical History (Updated 05/22/24 @ 14:39 by Deandra Boss MD) Sleep apnea History of alcohol dependence Osteoarthritis Opacity of lung on imaging study Pleurodynia Rib pain Impaired glucose tolerance Bilateral primary osteoarthritis of knee Carpal tunnel syndrome Lumbar spondylosis Surgical History History of arthroscopy of shoulder History of appendectomy History of ankle surgery History of total replacement of right shoulder joint (03/14/23) Hx of carpal tunnel repair Hx of hand surgery Hx of knee surgery Hx of knee surgery H/O right knee surgery H/O neck surgery Family History (Updated 05/22/24 @ 14:35 by Deandra Boss MD) Mother Diabetes mellitus Alzheimer's dementia Father Alzheimer's dementia Social History Household Members: Spouse and Family Household Members Other:: 3 Housing: Other Housing Other:: [facility] house Are you a primary career consultant to a significant other at home: No Do you presently have visiting nurse or other home services: No Alcohol intake: current Alcohol intake frequency: a few times a week Alcohol type: beer and hard liquor Patient Tobacco Use Status: Never used Tobacco e-Cigarette/Vaping Use: Never Used Second Hand Smoke Exposure: No Advance Directives Date on File: 03/17/23 service: No Current occupational status: retired Cognitive needs: No Hearing needs: No Vision needs: No Questionnaire PHQ-9 Over the last 2 weeks, how often have you been bothered by any of the following problems? 1. Little interest or pleasure in doing things: not at all 2. Feeling down, depressed, or hopeless: not at all 3. Trouble falling or staying asleep, or sleeping too much: not at all 4. Feeling tired or having little energy: not at all 5. Poor appetite or overeating: not at all 6. Feeling bad about yourself - or that you are a failure or have let yourself or your family down: not at all 7. Trouble concentrating on things, such as reading the newspaper or watching television: not at all 8. Moving or speaking so slowly that other people could have noticed. Or the opposite - being so fidgety or restless that you have been moving around a lot more than usual: not at all 9. Thoughts that you would be better off or of hurting yourself in some way : not at all Total score: 0 Depression Screening Interpretation: Negative Depression Screening Done: Yes 81853 - PHQ-9 Billing: Yes Source: Developed by Drs. Kennedy Rivera, Ayala English, Akash Hollis and colleagues, with an educational ana from [employer]. Thrive Questionnaire Date Thrive assessed: 05/22/24 I am a: Patient What is your living situation today?: I have a steady place to live Within the past 12 months, did the food you bought not last and you didn't have the money to get more?: Never true Within the past 12 months, did you worry whether your food would run out before you got money to buy more?: Never true Do you have trouble paying for medicines?: No Do you have trouble getting transportation to medical appointments?: No Do you have trouble paying your heating and electricity bill?: No Do you have trouble taking care of your child, family member or friend?: No Do you have trouble with day-to-day activities such as bathing, preparing meals, shopping, managing finances, etc.?: No Are you currently unemployed and looking for a job?: No Are you interested in more education?: No Please select the resources that you would like help with: None Currently or been in a relationship where the following occur: No concerns reported THRIVE Score: 0 AUDIT C Alcohol Use Questionnaire (AUDIT-C) 1. How often do you have a drink containing alcohol?: 2-3 times a week 2. How many drinks containing alcohol do you have on a typical day when you are drinking?: 1 or 2 3. How often do you have six or more drinks on one occasion?: Never Total Score: 3 ROSANA-7 AMB Questionnaire ROSANA-7 Date ROSANA - 7 assessed: 05/22/24 Feeling nervous, anxious, or on edge: 0 = Not at all Not being able to stop or control worryin = Not at all Worrying too much about different things: 0 = Not at all Trouble relaxin = Not at all Being so restless that it is hard to sit still: 0 = Not at all Becoming easily annoyed or irritable: 0 = Not at all Feeling afraid as if something awful might happen: 0 = Not at all Total ROSANA-7 score (0-4 normal; 5-9 mild; 10-14 moderate; 15-21 severe): 0 Source: Developed by Drs. Kennedy Rivera, Ayala English, Akash Hollis and colleagues, with an educational ana from [employer]. ROSANA-7 Assessment Billing ROSANA-7 Assessment Tool: ROSANA-7 Assessment 43706 Review of Systems Const All systems reviewed & are unremarkable except as noted in HPI and below Card Denies chest pain at rest, Denies chest pain with activity, Denies edema, Denies irregular heart rhythm, Denies claudication, Denies dyspnea, Denies dyspnea on exertion, Denies orthopnea, Denies paroxysmal nocturnal dyspnea and Denies slow heart rate Resp Denies cough, Denies dyspnea and Denies dyspnea on exertion GI Denies abdominal pain, Denies change in bowel habits, Denies excessive flatus, Denies nausea and Denies vomiting Denies urinary hesitancy, Denies urinary incontinence and Denies urinary urgency Musc Denies abnormal gait, Denies atrophy, Denies deformity and Denies limited range of motion Skin/Breast Denies bleeding lesions, Denies changing lesions and Denies rash Neuro Denies abnormal gait, Denies behavioral changes and Denies lack of coordination Psych Denies behavioral changes Physical exam (Primary Care) Vital Signs: Last Vital Signs Pulse 84 05/22/24 14:21 BP 136/80 05/22/24 14:21 Pulse Ox 97 05/22/24 14:21 Oxygen Delivery Method Room Air 05/22/24 14:21 BMI result Body Mass Index 32.0 BMI Assessment/Plan discussion: High BMI High, discussed plan: lifestyle, weight reduction, dietary and physical activity Tobacco/Smoking Status: Tobacco use Status Tobacco use date assessed 05/22/24 05/22/24 14:27 Patient Tobacco Use Status Never used Tobacco 05/22/24 14:21 e-Cigarette/Vaping Use Never Used 05/22/24 14:21 PHQ-9: PHQ-9 Score PHQ-9: Total score 0 05/22/24 14:31 Depression Screening Interpretation: Negative Thrive Assessment: Date of Thrive Assessment Date Thrive assessed 05/22/24 05/22/24 14:21 Currently or been in a relationship where the following occur: No concerns reported Resp Effort & Inspection: normal respiratory effort Auscultation: clear to auscultation bilaterally Cardio Jugular venous distension: no JVD Rate: regular rate Rhythm: regular rhythm Heart sounds: S1 normal heart sound present and S2 normal heart sound present Extrem General: Yes full ROM Office Procedures Flu Questionnaire Does the patient have a severe egg allergy?: No Immunizations Fluarix Triv [id number] (PF) 45 mcg (15 mcg x 3)/0.5 mL IM syringe Performing Provider: Deandra Boss MD [facility] Documented (not given) by: VENTURA Umanzor on 05/22/24 14:30 Reason Not Given: Patient Refused Coding Level of Care Code Est Pt Level 3 (53737) Complex EM visit Add On G2211 Diagnoses Pre-op evaluation Z01.818 Sleep apnea G47.30 Skin lesion L98.9 Additional Codes ROSANA-7 Assessment Billing - ROSANA-7 Assessment Tool: ROSANA-7 Assessment 99275 ([id number]) PHQ-9 - 85073 - PHQ-9 Billing: Yes ([id number]) Time Spent (min) 19 Assessment & Plan Assessment & Plan (1) Pre-op evaluation: Code(s): Z01.818 - Encounter for other preprocedural examination Category: Medical (2) Sleep apnea: Comment: has CPAP-not using Code(s): G47.30 - Sleep apnea, unspecified Category: Medical (3) Skin lesion: Code(s): L98.9 - Disorder of the skin and subcutaneous tissue, unspecified Category: Medical Plan - Complete preoperative evaluations, including a kidney test as requested before the surgery. - Prepare for bilateral ptosis surgery scheduled at [facility] in [place]. Patient was informed and verbally consented to the use of an ambient scribe for clinic note documentation during this visit. I discussed with the patient the preparation for the upcoming bilateral ptosis surgery. We verified the location where the procedure will take place and addressed the need for possible language assistance to ensure clear communication. We have confirmed the requirement of a kidney test as part of the preoperative assessment. The potential risks associated with the surgery were deemed to be minimal, and the patient appeared to understand the procedure and preparatory steps. Orders: Orders ECG 12 lead EKG Today Z01.818 - Encounter for other preprocedural examination Complete Blood Count Auto Diff Today R06.09 - Other forms of dyspnea Influenza [id number] Immunization Today Z23 - Encounter for immunization Comprehensive [place]. Panel Fast Today Z01.818 - Encounter for other preprocedural examination Referrals Dermatology Referral L98.9 - Disorder of the skin and subcutaneous tissue, unspecified Medications: New triamcinolone acetonide 0.1% 1 appl topical DAILY 15 grams 1RF 2 weeks Patient Instructions: - Complete all preoperative evaluations, including any required laboratory tests. - Review and ensure understanding of surgical procedure and associated instructions. - Attend the scheduled appointment at [facility] for ptosis surgery next month.
[2024-05-22 14:21] VITALS: BP 136/80; PULSE 84; O2SAT 97; BMI 32.0
--- OUTSIDE RECORDS SUMMARY | 2024-05-22 14:23 | XMS_ITS ---
Author Organization [facility] Address [address] [place] [address] Care Team Providers Care Casting Wheel Operator Helper Name Role Phone Deandra Griffin Primary Care Provider Unavailab Kennedy Malone Unavailable [phone] REASON FOR VISIT Patient presents today for a discuss colonoscopy Encounters Encounter Location Date Provider Diagnosis [facility] [address] [place] [id number] 08/29/2023 Kennedy Corona PLAN OF TREATMENT No Information
--- OUTSIDE RECORDS SUMMARY | 2024-05-22 14:23 | XMS_ITS | Patient Health Record ---
Author Organization [facility] Address [address] [place] [address] Care Team Providers Care Physician Practice Coordinator Name Role Phone Deandra Griffin Primary Care Provider Unavailab Kennedy Malone Unavailable [phone] REASON FOR REFERRAL No Information SOCIAL HISTORY Sex Assigned At : Social History Observation Description Sex Assigned At Unknown Encounters Encounter Location Date Provider Diagnosis [facility] [address] [place] [address] 08/29/2023 Kennedy Corona [facility] [address] [place] [address] 08/29/2023 Kennedy Corona PLAN OF TREATMENT No Information Insurance Providers Payer Name Payer Address Payer Phone Subscriber Number Group Number Insured Name Patient Relationship to Insured Coverage Start Date Coverage End Date [facility] [address] [place] [address] [id number] LADY FISHMAN Self - patient is the insured
--- OUTSIDE RECORDS SUMMARY | 2024-05-22 14:24 | XMS_ITS ---
Author Organization [facility] Address [address] [place] [address] Care Team Providers Care Janitor Name Role Phone Deandra Griffin Primary Care Provider Unavailab Kennedy Malone Unavailable [phone] REASON FOR VISIT Patient presents today for a COLON SCREENING Encounters Encounter Location Date Provider Diagnosis [facility] [address] [place] [phone] 04/25/2023 Kennedy Corona PLAN OF TREATMENT No Information
--- OUTSIDE RECORDS SUMMARY | 2024-05-22 14:24 | XMS_ITS ---
Author Organization [facility] Address [address] [place] [address] Care Team Providers Care Marketing Support Manager Name Role Phone Deandra Griffin Primary Care Provider Unavailab Kennedy Malone Unavailable [phone] REASON FOR VISIT no show Encounters Encounter Location Date Provider Diagnosis [facility] [address] [place] [address] 08/29/2023 Kennedy Corona PLAN OF TREATMENT No Information
== END 2024-05-22 14:40 | disposition home or self-care (01) ==
PROVIDERS: PCP Internal Medicine; Visit Provider Internal Medicine
DX: Z01.818 Encounter for other preprocedural examination (principal); G47.30 Sleep apnea, unspecified; L98.9 Disorder of the skin and subcutaneous tissue, unspecified; Z23 Encounter for immunization

== ENCOUNTER → 2024-05-22 14:13 | Outpatient (BNVA) | payer OTHER, SELFPAY | PROVIDERS: PCP Internal Medicine; Visit Provider Internal Medicine | DX: Z01.818 Encounter for other preprocedural examination (principal); G47.30 Sleep apnea, unspecified; L98.9 Disorder of the skin and subcutaneous tissue, unspecified | CPT/HCPCS: 90471; 96127; 99212 ==

== ENCOUNTER 2024-05-27 09:34 | Outpatient (REF) | payer OTHER, SELFPAY ==
--- NOTE | 2024-05-27 09:39 | ECG_ITS ---
Test Reason : pre op Blood Pressure : */* mmHG Vent. Rate : 67 BPM Atrial Rate : 67 BPM P-R Int : 144 ms QRS Dur : 94 ms QT Int : 394 ms P-R-T Axes : 47 0 -18 degrees QTcB Int : 416 ms Normal sinus rhythm Incomplete right bundle branch block Moderate voltage criteria for LVH, may be normal variant ( R in aVL , Prashant product ) Borderline ECG When compared with ECG of 16-Feb-2024 16:36, Nonspecific T wave abnormality no longer evident in Anterolateral leads Referred By: Deandra Boss Electronically Signed By: VELMA IGLESIAS
[2024-05-27 09:55] LABS: MANUAL DIFF FLAG NO
[2024-05-27 09:59] LABS: Basophils Absolute Auto 0.1 X10*3/uL (0.0-0.2); Basophils Percent Auto 1.2 % (0-2); Eosinophils Absolute Auto 0.8 X10*3/uL (0.0-0.4); Eosinophils Percent Auto 11.6 % (0-4); Hematocrit 42.1 % (42.0-52.0); Hemoglobin 13.2 g/dl (14.0-18.0); Imm Gran Abs Auto 0.02 X10*3/uL (0.00-0.03); Imm Gran Pct Auto 0.3 % (0.0-0.4); Lymphocytes Absolute Auto 1.9 X10*3/uL (1.2-4.9); Lymphocytes Percent Auto 28.1 % (20-40); Mean Corpuscular HGB Conc 31.4 g/dl (31.0-36.0); Mean Corpuscular Hemoglobin 26.7 pg (27.0-33.0); Mean Corpuscular Volume 85.1 fL (80.0-98.0); Mean Platelet Volume 10.6 fL (9.4-12.4); Monocytes Absolute Auto 0.6 X10*3/uL (0.1-1.2); Monocytes Percent Auto 8.5 % (2-11); Neutrophils Absolute Auto 3.4 x10*3/uL (2.0-8.3); Neutrophils Percent Auto 50.3 % (45-73); Platelet Count 245 X10*3/uL (160-400); Red Blood Count 4.95 X10*6/uL (4.60-5.80); Red Cell Distribution Width 14.6 % (11.0-16.0); White Blood Count 6.7 X10*3/uL (4.8-10.8)
--- OUTSIDE RECORDS SUMMARY | 2024-05-27 10:24 | XMS_ITS | Patient Health Record ---
Author Organization [facility] Address [address] [place] [address] Care Team Providers Care Hepatologist Name Role Phone Deandra Griffin Primary Care Provider Unavailab Kennedy Malone Unavailable [phone] REASON FOR REFERRAL No Information SOCIAL HISTORY Sex Assigned At : Social History Observation Description Sex Assigned At Unknown Encounters Encounter Location Date Provider Diagnosis [facility] [address] [place] [address] 08/29/2023 Kennedy Corona [facility] [address] [place] [address] 08/29/2023 Kennedy Corona PLAN OF TREATMENT No Information Insurance Providers Payer Name Payer Address Payer Phone Subscriber Number Group Number Insured Name Patient Relationship to Insured Coverage Start Date Coverage End Date [facility] [address] [place] [phone] [id number] LADY FISHMAN Self - patient is the insured
[2024-05-27 11:56] LABS: Alanine Aminotransferase 28 U/L (0-40); Alkaline Phosphatase 69 U/L (39-117); Anion Gap 11 (12-20); Aspartate Amino Transferase 27 U/L (5-37); Bilirubin Total 0.4 mg/dL (0.0-1.0); Blood Urea Nitrogen 14 mg/dL (9-16); Calcium 9.4 mg/dL (8.4-10.2); Carbon Dioxide 28 mmol/L (22-29); Chloride 105 mmol/L (96-108); Estimated Glomerular Filt Rate > 60; Glucose Fasting 96 mg/dL (60-99); Potassium 4.4 mmol/L (3.3-5.1); Sodium 140 mmol/L (135-145); Total Protein 7.6 g/dL (6.5-8.0)
== END 2024-05-27 09:35 | disposition home or self-care (01) ==
LOC: HO.LAB 09:34
PROVIDERS: PCP Internal Medicine; Visit Provider Internal Medicine
DX: Z01.818 Encounter for other preprocedural examination (principal); R06.09 Other forms of dyspnea
CPT/HCPCS: 36415; 80053; 85025; 93005

== ENCOUNTER → 2024-05-27 09:39 | Outpatient (BNV) | payer OTHER, SELFPAY | PROVIDERS: PCP Internal Medicine; Visit Provider Internal Medicine | DX: I45.10 Unspecified right bundle-branch block (principal) | CPT/HCPCS: 93010 ==

== ENCOUNTER 2024-07-16 09:57 | Emergency (ER) | payer OTHER, SELFPAY ==
--- NOTE | ~2024-07-16 | XR_ITS ---
EXAMINATION: XR CHEST CLINICAL INFORMATION: COUGH COMPARISON: August 26, 2023. TECHNIQUE: 2 views of the chest were obtained. FINDINGS: Prominence of the interstitial markings more conspicuous in the right perihilar. No pleural effusion. No pneumothorax. Cardiomediastinal silhouette size is normal. Multilevel thoracic spondylosis. Metallic prosthesis right humeral head.. XR/XR chest 2V IMPRESSION: Consider acute small airway inflammatory process. Electronically signed by: Trip Mena MD 07/16/2024 10:50 AM EDT
[2024-07-16 10:20] VITALS: BP 112/72; PULSE 85; RESP 16; TEMP 36.6; O2SAT 94; BMI 32.6
[2024-07-16 11:24] LABS: Influenza A PCR NEGATIVE (Negative); Influenza B PCR POSITIVE (Negative); Resp Syncy Virus RNA Qual PCR NEGATIVE (Negative); SARS COV2 PCR INHOUSE NEGATIVE (Negative)
[2024-07-16 11:43] LABS: IDNOW Serial# 55D5AD1C; Strep A Nucleic Acid Positive (Negative)
--- NOTE | 2024-07-16 11:46 | ED.URI ---
HPI - URI/Sore Throat General Chief Complaint: Fever Stated Complaint: Fever, pain both legs Time Seen by Provider: 07/16/24 11:18 Source: patient, old records reviewed and professor of pathology Mode of arrival: ambulatory Limitations: no limitations History of Present Illness ED Provider: JANICE SAMANO Narrative: 49 yo male with PMH of arthritis, CASIE here with 6 days of cough, body aches, sore throat states his granddaughter had a throat infection was given a pill and she was better in 2 days. He denies chest pain/dyspnea, n/v/d. He has been taking OTC meds with relief. He came today as he doesn't feel he is getting better. MD elicited complaint: fever, cough and sore throat Onset (ago): day(s) (6) Consistency: progressively worsening Severity: moderate Description of mucous: watery Able to tolerate fluids by mouth: Yes Exacerbating factors: swallowing Relieving factors: nothing Context: sick contacts Associated symptoms: fever, chills, myalgias, sore throat and cough Treatments prior to arrival: cold medicine Related Data Previous Rx's ?Medication ?Instructions ?Recorded triamcinolone acetonide 0.1 % 1 appl topical DAILY 2 weeks #15 05/22/24 topical cream grams oxycodone 5 mg tablet 5 mg PO Q24H PRN pain #10 tabs 05/28/24 cephalexin 500 mg capsule 500 mg PO BID 10 days #20 caps 07/16/24 hydrocortisone 1 % topical cream 1 appl topical TID PRN rash #28.35 07/16/24 grams Allergies Allergy/AdvReac Type Severity Reaction Status Date / Time adhesive tape Allergy Severe Rash of Verified 07/16/24 10:24 eyes and ears, Went to ED shrimp Allergy Severe Throat Verified 07/16/24 10:24 swelling latex [LATEX] Allergy Intermediate ITCHING Verified 07/16/24 10:24 Penicillins [PENICILLINS] Allergy Intermediate RASH Verified 07/16/24 10:24 lidocaine [From Lidoderm] AdvReac Intermediate Rash Verified 07/16/24 10:24 Review of Systems Review of Systems: Constitutional : positive Fever, positive Chills, positive fatigue, positive Malaise ENT/Mouth : positive sore throat, positive runny nose Eyes: No Discharge Cardiovascular : No Chest Pain, No SOB Respiratory : pos Cough, No Sputum Gastrointestinal : No Nausea, No Vomiting, No Diarrhea Genitourinary : No Dysuria, No Urinary Frequency Musculoskeletal : positive Myalgia Skin : No rash Neuro : No Headache all other systems reviewed and are negative [facility] Medical History Attestation statement: The following information was validated with the patient. Source: old records reviewed Medical History Sleep apnea History of alcohol dependence Osteoarthritis Opacity of lung on imaging study Pleurodynia Rib pain Impaired glucose tolerance Bilateral primary osteoarthritis of knee Carpal tunnel syndrome Lumbar spondylosis Surgical History History of arthroscopy of shoulder History of appendectomy History of ankle surgery History of total replacement of right shoulder joint (03/14/23) Hx of carpal tunnel repair Hx of hand surgery Hx of knee surgery Hx of knee surgery H/O right knee surgery H/O neck surgery Family History Family History (Updated 05/22/24 @ 14:35 by Deandra Boss MD) Mother Diabetes mellitus Alzheimer's dementia Father Alzheimer's dementia Social History Social History Household Members: Spouse and Family Household Members Other:: 3 Housing: Other Housing Other:: town house Are you a primary care provider to a significant other at home: No Do you presently have visiting nurse or other home services: No Alcohol intake: current Alcohol intake frequency: a few times a week Alcohol type: beer and hard liquor Patient Tobacco Use Status: Never used Tobacco e-Cigarette/Vaping Use: Never Used Second Hand Smoke Exposure: No Advance Directives: Yes Advance Directives on File: Yes Advance Directives Date on File: 03/17/23 service: No Current occupational status: retired Cognitive needs: No Hearing needs: No Vision needs: No Physical Exam Vital Signs: Vital Signs: Last Vital Signs Temp 98 F 07/16/24 11:53 Pulse 85 07/16/24 11:53 Resp 16 07/16/24 11:53 BP 112/72 07/16/24 11:53 Pulse Ox 94 07/16/24 11:53 O2 Del Method Room Air 07/16/24 11:53 BMI result Body Mass Index 32.6 Appearance: Alert. Oriented X3. No acute distress. Eyes: Pupils equal, round and reactive to light. ENT: Pharynx moderate erythema with exudates uvula is midline normal voice no stridor or secretions. TM normal bilaterally Neck: Normal inspection. Neck supple. CVS: Normal heart rate and rhythm. Pulses normal. Respiratory: No respiratory distress. Breath sounds normal. Abdomen: Soft and nontender. Skin: Skin warm and dry. Normal skin color. Normal skin turgor. Extremities: No lower extremity edema. anterior L medina scaling darker pigmented pruritic rash no signs of infection Neuro: Oriented X 3. No motor deficit. No sensory deficit. CN2-12 intact Medications Administered Discontinued Medications Generic Name Dose Route Start Last Admin Trade Name Freq PRN Reason Stop Dose Admin Cephalexin HCl 500 mg 07/16/24 11:44 07/16/24 11:52 Cephalexin 500 Mg Capsule PO 07/16/24 11:45 500 mg ONCE ONE Administration Medical Decision Making Medical Decision Making [facility] Narrative: 49 yo male with PMH of arthritis, CASIE here with sore throat, body aches, cough not feeling well after exposure to grandchild at this time will need viral panel, CXR, strep swab I suspect he has strep throat. He also has chronic itching scaling rash on L anterior medina no signs of infection - can follow up with PCP start on steroid cream PRN - he has no signs of deeper space infection at this time. Differential Diagnosis Differential Diagnoses: The differential diagnosis associated with the presentation includes viral syndrome, pneumonia, strep throat Admission/Observation Consideration of admission/observation: Escalation of care including admission/observation considered tolerating PO stable for DC Lab Data [facility] Lab Attestation statement: I reviewed the patient's lab results. Labs: Lab Results 07/16/24 07/16/24 Range/Units 10:32 11:27 Influenza Type A (PCR) NEGATIVE (Negative) Influenza Type B (PCR) POSITIVE A (Negative) RSV RNA Qual (PCR) NEGATIVE (Negative) SARS-CoV-2 RNA (RT-PCR) NEGATIVE (Negative) S. pyogenes GrpA LLUVIA Positive A (Negative) Independent Interpretation I performed an independent interpretation of an: Plain X-Ray (no pneumonia) Radiology Impression Discussion of test interpretation with radiology: I have reviewed the radiologist's reading. External Record Review External record reviewed: Outpatient record Prescription Management I considered prescription management with: Pain Medication, Antibiotic and Other Discharge Plan Discharge Clinical Impression: Influenza, Strep throat, Dermatitis Patient Disposition: Home, Self-Care Instructions: Pharyngitis (ED), Influenza (ED), Dermatitis (ED) Additional Instructions: + for flu B and strep throat please stay hydrated and rest reutrn for worsening symptoms such as increased pain, trouble breathing, weakness or any other concerns you can take tylenol and motrin as needed for fever 24 hours after first dose of antibiotic throw away toothbrush your rash should be monitored by your doctor can apply cream to see if it helps no more than a 2 week course Prescriptions: New cephalexin 500 mg capsule 500 mg PO BID 10 Days Qty: 20 0RF hydrocortisone 1 % cream 1 appl topical TID PRN (Reason: rash) Qty: 28.35 0RF No Action oxycodone 5 mg tablet 5 mg PO Q24H PRN (Reason: pain) Qty: 10 0RF Rx Instructions: Partial Fill upon patient request. triamcinolone acetonide 0.1 % cream 1 appl topical DAILY 14 Days Qty: 15 1RF Interventions: ED Discharge Assessment Last Done: 07/16/24 11:53 Discharge Date/Time: 07/16/24 11:53 Print Language: Syriac
[2024-07-16] MEDS: cephALEXin 500 MG CAPSULE PO (11:52)
[2024-07-16 11:53] VITALS: BP 112/72; PULSE 85; RESP 16; TEMP 36.6; O2SAT 94
--- OUTSIDE RECORDS SUMMARY | 2024-07-16 14:19 | XMS_ITS ---
Author Organization [facility] Address [address] [place] [address] Care Team Providers Care Corporate Physical Security Supervisor Name Role Phone Deandra Griffin Primary Care Provider Unavailab Kennedy Malone [phone] REASON FOR VISIT Patient presents today for a COLON SCREENING Encounters Encounter Location Date Provider Diagnosis [facility] [address] [place] [address] 04/25/2023 Kennedy Corona Plan Of Treatment No Information Progress Notes * ARMIN FISHMANRODOB:1975 ( 49 yo M)Acc No.[id number]:04/25/2023 Progress Notes Patient:?LADY FISHMAN Provider:?Kennedy Corona MD :1975???Age:47 Y???Sex:Male Jermaine e:04/25/2023 Address:[address] [place] [address] , [id number] Pcp:Deandra Boss Subjective: * Chief Complaints: * ???1. Patient presents today for a COLON SCREENING. * Medical History:? Objective: * Vitals:? Assessment: Plan: * Treatment: * * The named appointment provid er may or may not be the originator of this progress note, and it is not deemed complete until electronically signed by the appointment provider. Sign off status: Pending * Provider:?Kennedy Corona MD Date:? 024 Generated for Saeed titus/Belkys/eTransmitting on:?07/16/2024 02:19 PM EDT
--- OUTSIDE RECORDS SUMMARY | 2024-07-16 14:19 | XMS_ITS ---
Author Organization [facility] Address [address] [place] [address] Care Team Providers Care Bread Racker Name Role Phone Deandra Griffin Primary Care Provider Unavailab Kennedy Malone [phone] REASON FOR VISIT Patient presents today for a discuss colonoscopy Encounters Encounter Location Date Provider Diagnosis [facility] [address] [place] [phone] 08/29/2023 Kennedy Corona Plan Of Treatment No Information Progress Notes * ARMIN FISHMANRODOB:1975 ( 49 yo M)Acc No.[id number]:08/29/2023 Progress Notes Patient:?LADY FISHMAN Provider:?Kennedy Corona MD :1975???Age:48 Y???Sex:Male Jermaine e:08/29/2023 Address:[address] [place], [place] [id number] Pcp:Deandra Boss Subjective: * Chief Complaints: * ???1. Patient presents today for a discuss colonoscopy. * Medical History:? Objective: * Vitals:? Assessment: Plan: * Treatment: * * The named appointment provid er may or may not be the originator of this progress note, and it is not deemed complete until electronically signed by the appointment provider. Sign off status: Pending * Provider:?Kennedy Corona MD Date:? 024 Generated for Saeed titus/Fananig/eTransmitting on:?07/16/2024 02:18 PM EDT
--- OUTSIDE RECORDS SUMMARY | 2024-07-16 14:19 | XMS_ITS ---
Author Organization [facility] Address [address] [place] [address] Care Team Providers Care Hand Singer Name Role Phone Deandra Griffin Primary Care Provider Unavailab Kennedy Malone [phone] REASON FOR VISIT no show Encounters Encounter Location Date Provider Diagnosis [facility] [address] [place] [address] 08/29/2023 Kennedy Corona Plan Of Treatment No Information Progress Notes * LEONORA FISHMANOB:1975 ( 48 yo M)Acc No.[id number]:08/29/2023 Patient:?LADY FISHMAN :1975???Age:48 Y???Sex:Male Address:[address] [place] [address] [address] , [place], [address] * true * Date:? Generated for Saeed titus/Belkys/eTransmitting on:?07/16/2024 02:19 PM EDT
--- OUTSIDE RECORDS SUMMARY | 2024-07-16 14:19 | XMS_ITS | Patient Health Record ---
Author Organization [facility] Address [address] [place] [address] Care Team Providers Care Sec Accountant Name Role Phone Deandra Griffin Primary Care Provider Unavailab Kennedy Malone Unavailable [phone] Reason For Referral No Information Encounters Encounter Location Date Provider Diagnosis [facility] [address] [place] [address] 08/29/2023 Kennedy Corona Plan Of Treatment No Information Insurance Providers Payer Name Payer Address Payer Phone Subscriber Number Group Number Insured Name Patient Relationship to Insured Coverage Start Date Coverage End Date [facility] [address] [place] [address] [id number] LADY FISHMAN Self - patient is the insured
== END 2024-07-16 11:53 | disposition home or self-care (01) ==
PROVIDERS: Emergency Provider Emergency Medicine; PCP Internal Medicine
DX: J10.1 Influenza due to other identified influenza virus with other respiratory manifestations (principal); J02.0 Streptococcal pharyngitis; L30.9 Dermatitis, unspecified
CPT/HCPCS: 0241U; 71046; 87651; 99282; 99283

== ENCOUNTER → 2024-07-16 10:25 | Outpatient (BNV) | payer OTHER, SELFPAY | PROVIDERS: PCP Internal Medicine; Visit Provider Radiology Diagnostic Radiology | DX: J45.909 Unspecified asthma, uncomplicated (principal) | CPT/HCPCS: 71046 ==

== ENCOUNTER 2024-09-04 10:08 | Outpatient (AMB) | payer OTHER, SELFPAY ==
--- NOTE | 2024-09-04 10:25 | MHC.OFFVIS ---
Vital Signs 09/04/24 10:29 Height 5 ft 6 in Weight 195 lb 12.328 oz BMI 31.6 BP 110/62 Blood Pressure Location Lt brachial Position Sitting Pulse 71 Pulse Source Monitor Intake Visit Reasons: DIRECTOR OF COLLECTIONS/ Mission/abn ekg Intake Note: DIRECTOR OF COLLECTIONS/darek/abn ekg Manager Core Required: Yes Manager Core Language: Earth Moving Machine Operator Name: [email or web address] Accompanied by: Self / Same As Patient Allergies adhesive tape Allergy (Severe, Verified 07/16/24 10:24) Rash of eyes and ears, Went to ED shrimp Allergy (Severe, Verified 07/16/24 10:24) Throat swelling latex [LATEX] Allergy (Intermediate, Verified 07/16/24 10:24) ITCHING Penicillins [PENICILLINS] Allergy (Intermediate, Verified 07/16/24 10:24) RASH lidocaine [From Lidoderm] Adverse Reaction (Intermediate, Verified 07/16/24 10:24) Rash Medication List - Last Reconciled 09/04/24 by Mike He MD hydrocortisone 1% 1 appl topical TID PRN oxycodone 5 mg PO Q24H PRN triamcinolone acetonide 0.1% 1 appl topical DAILY 2 weeks HPI Comments Details: [age] year old gentleman referred to us for abnormal EKG. He works as a mechanical technician. He has background of substance abuse and alcohol use. He has been using cocaine on the weekends along with alcohol. He is saying that he gets palpitations from time to time and also gets short of breath. Denying any chest discomfort. EKGs showing inferior T-wave inversions. He also has dyspnea with activities. Denying any significant chest discomfort. Blood pressure is well controlled. [facility] Medical History Sleep apnea History of alcohol dependence Osteoarthritis Opacity of lung on imaging study Pleurodynia Rib pain Impaired glucose tolerance Bilateral primary osteoarthritis of knee Carpal tunnel syndrome Lumbar spondylosis Surgical History History of arthroscopy of shoulder History of appendectomy History of ankle surgery History of total replacement of right shoulder joint (03/14/23) Hx of carpal tunnel repair Hx of hand surgery Hx of knee surgery Hx of knee surgery H/O right knee surgery H/O neck surgery Family History Mother Diabetes mellitus Alzheimer's dementia Father Alzheimer's dementia Social History Household Members: Spouse and Family Household Members Other:: 3 Housing: Other Housing Other:: town house Are you a primary rental boats caretaker to a significant other at home: No Do you presently have visiting nurse or other home services: No Alcohol intake: current Alcohol intake frequency: a few times a week Alcohol type: beer and hard liquor Patient Tobacco Use Status: Never used Tobacco e-Cigarette/Vaping Use: Never Used Second Hand Smoke Exposure: No Advance Directives Date on File: 03/17/23 service: No Current occupational status: retired Cognitive needs: No Hearing needs: No Vision needs: No Review of Systems Const Denies chills, Denies fatigue, Denies fever(s), Denies frequent falls, Denies weakness, Denies weight gain and Denies weight loss ENT Denies dizziness Card Denies chest pain, Denies leg edema, Denies lightheadedness, Denies palpitations, Denies dyspnea, Denies dyspnea on exertion and Denies orthopnea Resp Denies cough, Denies dyspnea and Denies dyspnea on exertion GI Denies bloating and Denies change in bowel habits Musc Denies muscle weakness, Denies numbness and Denies tingling Neuro Denies dizziness, Denies frequent falls, Denies numbness, Denies tingling and Denies weakness Endo Denies fatigue and Denies palpitations Physical Exam Vital Signs: Last Vital Signs Pulse 71 09/04/24 10:29 BP 110/62 09/04/24 10:29 BMI result Body Mass Index 31.6 GENERAL APPEARANCE: in no acute distress, pleasant. NECK: no carotid bruit, no jugular venous distention. SKIN: no suspicious lesions, warm and dry. HEART: no murmurs, regular rate and rhythm. LUNGS: clear to auscultation bilaterally. ABDOMEN: soft, nontender. EXTREMITIES: no edema. PERIPHERAL PULSES: equal. NEUROLOGIC: No gross deficits, AAO X 3 Office Procedures EKG Details: Sinus rhythm 71 beats per minute, normal axis, inferior T-wave changes, lateral T-wave changes-consider ischemia versus left ventricular hypertrophy, QTC 412 milliseconds. [id number], Complete Assessment & Plan Assessment & Plan (1) Abnormal EKG: Code(s): R94.31 - Abnormal electrocardiogram [ECG] [EKG] Category: Medical (2) Dyspnea on exertion: Code(s): R06.09 - Other forms of dyspnea Category: Medical Plan [age] year gentleman presenting with abnormal EKG, palpitations and dyspnea on exertion. Denying any chest discomfort. He has history of substance abuse. Check echo to assess any wall motion abnormalities, diastolic function as well as PA pressures. We will arrange stress Mibi for him to rule out ischemia. I have advised him to stop using cocaine. Thank you for allowing me to participate in the care of your patient. Please feel free to contact me if you have any questions. Orders: Orders CA stress test Today R06.09 - Other forms of dyspnea CA echo transthorac w con Today R06.09 - Other forms of dyspnea NM cardiolite stress test Today R06.09 - Other forms of dyspnea Coding Level of Care Code New Pt Level 4 (95503) Diagnoses Abnormal EKG R94.31 Dyspnea on exertion R06.09 CPT Codes EKG - CPT: 47894-Shyegwxmjfdfdzwiv, Complete ([id number])
[2024-09-04 10:29] VITALS: BP 110/62; PULSE 71; BMI 31.6
--- OUTSIDE RECORDS SUMMARY | 2024-09-04 10:46 | XMS_ITS ---
Author Organization [facility] Address [address] [place] [address] Care Team Providers Care Curtain Fitter Name Role Phone Deandra Griffin Primary Care Provider Unavailab Kennedy Malone [phone] REASON FOR VISIT Patient presents today for a discuss colonoscopy Encounters Encounter Location Date Provider Diagnosis [facility] [address] [place] [address] 08/29/2023 Kennedy Corona Plan Of Treatment No Information Progress Notes * ARMIN FISHMANRODOB:1975 ( 49 yo M)Acc No.[id number]:08/29/2023 Progress Notes Patient:?LADY FISHMAN Provider:?Kennedy Corona MD :1975???Age:48 Y???Sex:Male Jermaine e:08/29/2023 Address:[address] [place], [place] [id number] Pcp:Deandra Boss Subjective: * Chief Complaints: * [...] MD Date:? 024 Generated for Saeed titus/Belkys/eTransmitting on:?09/04/2024 10:46 AM EDT
== END 2024-09-04 11:00 | disposition home or self-care (01) ==
LOC: HO.HCS 10:09
PROVIDERS: PCP Internal Medicine; Visit Provider Internal Medicine Cardiovascular Disease
DX: R94.31 Abnormal electrocardiogram [ECG] [EKG] (principal); R06.09 Other forms of dyspnea
CPT/HCPCS: 93010; 99214

== ENCOUNTER → 2024-09-04 10:08 | Outpatient (BNVA) | payer OTHER, SELFPAY | PROVIDERS: PCP Internal Medicine; Visit Provider Internal Medicine Cardiovascular Disease | DX: R94.31 Abnormal electrocardiogram [ECG] [EKG] (principal); R06.09 Other forms of dyspnea | CPT/HCPCS: 93005; 99212 ==

== ENCOUNTER → 2024-10-22 10:57 | Outpatient (REF) | payer OTHER, SELFPAY ==
--- OUTSIDE RECORDS SUMMARY | 2023-08-29 07:10 | XMS_ITS ---
Author Organization [facility] Address [address] [place] [phone] Care Team Providers Care Tester/Lift Trucker Name Role Phone Deandra Griffin Primary Care Provider Unavailab Kennedy Malone [phone] REASON FOR VISIT Patient presents today for a discuss colonoscopy Encounters Encounter Location Date Provider Diagnosis [facility] [address] [place] [phone] 08/29/2023 Kennedy Corona Plan Of Treatment No Information Progress Notes * LEONORA FISHMANOB:1975 ( 49 yo M)Acc No.[id number]:08/29/2023 Progress Notes Patient: Rayshawn KAHN LADY Provider: Ayaan Corona MD :1975 A ge:48 Y S ex:Male Date:08/29/2023 Address:[address] [place], [place] [phone] Pcp:Deandra Boss Subjective: * Chief Complaints: * [...] Date: 08/29/2023 Generated for Saeed titus/Belkys/Mekhirandaviditting on: 10/22/2024 12:13 PM EDT
--- NOTE | 2024-10-22 11:02 | CA_ITS ---
Transthoracic Echocardiogram Patient (Last, First, Middle): Shaun Oconnor, Gender: Male Date of : 1975 Age: 49 Procedure Date: 10/22/2024 Procedure Type: Transthoracic Echocardiogram Location: OP Height: 167. cm Weight: 85.73 kg BSA: 1.95 m2 Heart Rate: 64 bpm BP: 155 / 75 mmHg Title I Teacher: JOANNA Yousif MD: Mike He MD Conveyor Technician: Mike He MD Symptoms: R06.09 - Other forms of dyspnea Study Quality: Adequate ECG Rhythm: Sinus Conclusions: - Normal left ventricular size, thickness, systolic function, and wall motion. The visually estimated ejection fraction is between 60-65%. There is evidence of regional wall motion abnormalities. Diastolic function is normal for age. - The basal inferolateral segment is hypokinetic. - The basal inferior segment is akinetic. - Mildly increased right ventricular cavity size. There is normal right ventricular systolic function. - There is mild dilatation of the ascending aorta measuring 3.70 cm. Findings Left Ventricle Normal left ventricular size, thickness, systolic function, and wall motion. The visually estimated ejection fraction is between 60-65%. There is evidence of regional wall motion abnormalities. Diastolic function is normal for age. Wall Motion Rest Echo Findings The basal inferolateral segment is hypokinetic. The basal inferior segment is akinetic. Right Ventricle Mildly increased right ventricular cavity size. There is normal right ventricular systolic function. Atria The left atrium is normal in size. The right atrium is likely dilated. Aortic Valve Normal aortic valve structure and function. There is no aortic valve stenosis. There is no aortic valve regurgitation. Mitral Valve Normal mitral valve structure and function. There is no mitral valve regurgitation. There is no mitral valve stenosis. Pulmonic Valve The pulmonic valve is likely normal. Tricuspid Valve Normal tricuspid valve structure. There is no tricuspid valve regurgitation. Tricuspid regurgitation envelope is inadequate for calculation of right ventricular systolic pressure. Normal right atrial pressure. Great Vessels There is mild dilatation of the ascending aorta measuring 3.70 cm. The visualized portions of the pulmonary artery and branches are normal. Venous The inferior vena cava is normal in size and collapses greater than 50% with inspiration. Pericardium/Pleural There is no evidence of pericardial effusion. Prior Study Comparison No prior study available for comparison. Measurements 2D Linear Measurements IVSd: 0.79 0.6-0.9/0.6-1.0 cm LVIDd: 5.82 3.9-5.3/4.2-5.9 cm LVIDd Index: 2.98 2.4-3.2/2.2-3.1 cm/m2 LVIDs: 3.17 2.0-3.6 cm LVPWd: 0.86 0.7-1.1 cm LA Diam: 3.80 2.7-3.8/3.0-4.0 cm LAIDs Index: 1.95 1.5-2.3 cm/m2 LV Mass: 229.18 67-162/88-224 g LV Mass Index: 117.53 43-95/49-115 g/m2 LVOT Diam: 2.00 3.0+(-)1.3 cm 2D Systolic Function EF 4C: 65.30 >55% EF 2C: 69.10 >55% EF BiP: 67.40 >55% Mitral Valve MV Pk E: 0.87 MV PK A: 0.74 MV Decel Time: 247.00 E/A: 1.20 E'Lateral: 11.50 E'Medial: 10.10 E/E' Med: 8.70 E/E' Lat: 7.60 PHT: 72.00 MVA PHT: 3.06 Decel Lincoln: 3.54 Aortic Valve AoV Pk Maurice: 1.65 AoV Mn Maurice: 1.15 AoV VTI: 0.33 AoV Pk Grad: 11.00 Aov Mn Grad: 6.00 JOE Cont.VTI: 2.48 LVOT LVOT Pk Maurice: 1.36 LVOT Mn Maurice: 0.91 LVOT VTI: 0.26 LVOT Pk Grad: 7.00 LVOT Mn Grad: 4.00 LVOT Diam: 2.00 LVOT Area: 3.14 Diastolic Function MV Pk E: 0.87 MV Pk A: 0.74 E/A: 1.20 E'Medial: 10.10 E/E' Med: 8.70 E' Laterial: 11.50 E/E' Lat: 7.60 Right Ventricle TAPSE (mm): 36.90 TVS' Maurice: 21.90 Tricuspid Valve RA Press: 3.00 Great Vessels Aorta Sinus of Valsalva: 3.50 2.0-3.5 cm Ao Asc: 3.70 2.1-3.4 cm Pulmonary Valve PV Pk Maurice: 1.30 Peak PV Grad: 7.00 Updated in Other Vendor System with Status of Final Mike He MD electronically signed on 10/24/2024 11:24:37 AM with status of Final
== END ==
LOC: HO.CARD 10:57
PROVIDERS: Visit Provider Internal Medicine Cardiovascular Disease
DX: R06.09 Other forms of dyspnea (principal)
CPT/HCPCS: 93306

== ENCOUNTER → 2024-10-22 11:02 | Outpatient (BNV) | payer OTHER, SELFPAY | PROVIDERS: Visit Provider Internal Medicine Cardiovascular Disease | DX: I51.89 Other ill-defined heart diseases (principal) | CPT/HCPCS: 93306 ==

== ENCOUNTER 2024-11-19 09:06 | Outpatient (AMB) | payer OTHER, SELFPAY ==
--- OUTSIDE RECORDS SUMMARY | 2023-08-29 07:10 | XMS_ITS ---
Author Organization [facility] Address [address] [place] [phone] Care Team Providers Care Transitional Care Liaison Name Role Phone Deandra Griffin Primary Care Provider Unavailab Kennedy Malone [phone] REASON FOR VISIT Patient presents today for a discuss colonoscopy Encounters Encounter Location Date Provider Diagnosis [facility] [address] [place] [phone] 08/29/2023 Kennedy Corona Plan Of Treatment No Information Progress Notes * LEONORA FISHMANOB:1975 ( 49 yo M)Acc No.[id number]:08/29/2023 Progress Notes Patient: Rayshawn FEMI LADY Provider: Ayaan Corona MD :1975 A ge:48 Y S ex:Male Date:08/29/2023 Address:[address] [place], [place] [phone] Pcp:Deandra Boss Subjective: * Chief Complaints: * [...] Date: 08/29/2023 Generated for Saeed titus/Belkys/Sylvieitting on: 11/19/2024 10:01 AM EDT
--- NOTE | 2024-11-19 09:12 | MHC.PC.OV ---
Vital Signs 11/19/24 09:14 Height 5 ft 6 in Weight 193 lb 6 oz BMI 31.2 BP 136/62 Blood Pressure Location Lt brachial Position Sitting Pulse 74 Pulse Source Pulse Oximeter Pulse Oximetry (%) 97 Oxygen Delivery Method Room Air Intake Visit Reasons: Annual Exam Threader Required: No Accompanied by: Self / Same As Patient Allergies adhesive tape Allergy (Severe, Verified 11/19/24 09:22) Rash of eyes and ears, Went to ED shrimp Allergy (Severe, Verified 11/19/24 09:22) Throat swelling latex (LATEX) Allergy (Intermediate, Verified 11/19/24 09:22) ITCHING Penicillins (PENICILLINS) Allergy (Intermediate, Verified 11/19/24 09:22) RASH lidocaine (From Lidoderm) Adverse Reaction (Intermediate, Verified 11/19/24 09:22) Rash Medication List - Last Reconciled 11/19/24 by Deandra Boss MD No Known Home Meds Tobacco use date assessed: 11/19/24 Dental Screening Dental Screen Date: 11/19/24 Did you have a dental visit in the last 12 months?: No Did you have a dental problem in the last 6 months where you did not have access to dental care?: No Was dental information given to patient?: No HPI HPI Comments History of Present Illness Details The patient is a 49-year-old male presenting for an annual physical examination. He reports that his last laboratory results were satisfactory, including cholesterol levels. He is unsure about the timing of his last tetanus vaccination, which may have been over ten years ago, and expresses reluctance towards receiving it. The patient has undergone multiple surgeries, including left shoulder arthroscopy, left ankle surgery, right shoulder replacement, and carpal tunnel release in both hands. He also had a debridement surgery on the left thumb and right knee surgery. Additionally, he has had neck surgery. His father is beginning to show signs of dementia. The patient does not smoke and has never smoked. He consumes beer a couple of times a month and denies any depression or anxiety. [facility] Medical History Sleep apnea History of alcohol dependence Osteoarthritis Opacity of lung on imaging study Pleurodynia Rib pain Impaired glucose tolerance Bilateral primary osteoarthritis of knee Carpal tunnel syndrome Lumbar spondylosis Surgical History History of arthroscopy of shoulder History of appendectomy History of ankle surgery History of total replacement of right shoulder joint (03/14/23) Hx of carpal tunnel repair Hx of hand surgery Hx of knee surgery Hx of knee surgery H/O right knee surgery H/O neck surgery Family History Mother Diabetes mellitus Alzheimer's dementia Father Alzheimer's dementia Social History Household Members: Spouse and Family Household Members Other:: 3 Housing: Other Housing Other:: [facility] Are you a primary acute care certified nursing assistant to a significant other at home: No Do you presently have visiting nurse or other home services: No Alcohol intake: current Alcohol intake frequency: a few times a week Alcohol type: beer and hard liquor Patient Tobacco Use Status: Never used Tobacco e-Cigarette/Vaping Use: Never Used Second Hand Smoke Exposure: No Advance Directives Date on File: 03/17/23 service: No Current occupational status: retired Cognitive needs: No Hearing needs: No Vision needs: No Questionnaire PHQ-9 Over the last 2 weeks, how often have you been bothered by any of the following problems? 1. Little interest or pleasure in doing things: not at all 2. Feeling down, depressed, or hopeless: not at all 3. Trouble falling or staying asleep, or sleeping too much: not at all 4. Feeling tired or having little energy: several days 5. Poor appetite or overeating: not at all 6. Feeling bad about yourself - or that you are a failure or have let yourself or your family down: not at all 7. Trouble concentrating on things, such as reading the newspaper or watching television: not at all 8. Moving or speaking so slowly that other people could have noticed. Or the opposite - being so fidgety or restless that you have been moving around a lot more than usual: not at all 9. Thoughts that you would be better off or of hurting yourself in some way: not at all Total score: 1 Depression Screening Interpretation: Negative Depression Screening Done: Yes 45181 - PHQ-9 Billing: Yes Source: Developed by Drs. Kennedy Rivera, Ayala English, Akash Hollis and colleagues, with an educational ana from [employer]. Thrive Questionnaire Date Thrive assessed: 11/19/24 I am a: Patient What is your living situation today?: I have a steady place to live Within the past 12 months, did the food you bought not last and you didn't have the money to get more?: Sometimes True Within the past 12 months, did you worry whether your food would run out before you got money to buy more?: Sometimes True Do you have trouble paying for medicines?: No Do you have trouble getting transportation to medical appointments?: No Do you have trouble paying your heating and electricity bill?: No Do you have trouble taking care of your child, family member or friend?: No Do you have trouble with day-to-day activities such as bathing, preparing meals, shopping, managing finances, etc.?: No Are you currently unemployed and looking for a job?: Yes Are you interested in more education?: No Please select the resources that you would like help with: None THRIVE Score: 2 ROSANA-7 AMB Questionnaire ROSANA-7 Date ROSANA - 7 assessed: 11/19/24 Source: Developed by Drs. Kennedy Rivera, Ayala English, Akash Hollis and colleagues, with an educational ana from [employer]. Review of Systems Const All systems reviewed & are unremarkable except as noted in HPI and below Card Denies chest pain at rest, Denies chest pain with activity, Denies edema, Denies irregular heart rhythm, Denies claudication, Denies dyspnea, Denies dyspnea on exertion, Denies orthopnea, Denies paroxysmal nocturnal dyspnea and Denies slow heart rate Resp Denies cough, Denies dyspnea and Denies dyspnea on exertion GI Denies abdominal pain, Denies change in bowel habits, Denies excessive flatus, Denies nausea and Denies vomiting Physical exam (Primary Care) Vital Signs: Last Vital Signs Pulse 74 11/19/24 09:14 BP 136/62 11/19/24 09:14 Pulse Ox 97 11/19/24 09:14 Oxygen Delivery Method Room Air 11/19/24 09:14 BMI result Body Mass Index 31.2 Tobacco/Smoking Status: Tobacco use Status Tobacco use date assessed 11/19/24 11/19/24 09:18 Patient Tobacco Use Status Never used Tobacco 11/19/24 09:18 e-Cigarette/Vaping Use Never Used 11/19/24 09:18 PHQ-9: PHQ-9 Score PHQ-9: Total score 1 11/19/24 09:18 Depression Screening Interpretation: Negative Thrive Assessment: Date of Thrive Assessment Date Thrive assessed 11/19/24 11/19/24 09:18 HENMT Head: Yes normal to inspection, Yes normocephalic and Yes atraumatic Ears: external ears normal Eyes General: appearance normal, both eyes and all related structures Eyelids: Yes eyelids normal Conjunctivae: conjunctivae normal Neck Neck: Yes normal visual inspection and Yes supple Resp Effort & Inspection: normal respiratory effort Auscultation: clear to auscultation bilaterally Cardio Jugular venous distension: no JVD Rate: regular rate Rhythm: regular rhythm Heart sounds: S1 normal heart sound present and S2 normal heart sound present GI Inspection: Yes normal to inspection Palpation (GI): Soft to palpation and nontender Auscultation: normal bowel sounds Skin General skin exam: no rashes or lesions noted Neuro General: no focal motor deficits Extrem General: Yes full ROM Psych Appearance: grossly normal Coding Level of Care Code Est Pt Level 3 (15947) Est Pt Prev Care 40-64y(98628) Diagnoses Physical exam Z00.00 Skin lesion L98.9 Additional Codes PHQ-9 - 94006 - PHQ-9 Billing: Yes ([id number]) Time Spent (min) 33 Assessment & Plan Assessment & Plan (1) Physical exam: Code(s): Z00.00 - Encounter for general adult medical examination without abnormal findings Category: Medical (2) Skin lesion: Code(s): L98.9 - Disorder of the skin and subcutaneous tissue, unspecified Category: Medical Plan The patient is advised to consider updating his tetanus vaccination, given the uncertainty of the last administration date. A stool test for colon cancer screening was discussed as an alternative to colonoscopy, with instructions provided for home completion. Patient was informed and verbally consented to the use of an ambient scribe for clinic note documentation during this visit. Orders: Orders PSA,Total (Free>4and<10) Today R35.1 - Nocturia Referrals Cologuard Test Z12.11 - Encounter for screening for malignant neoplasm of colon, Z12.12 - Encounter for screening for malignant neoplasm of rectum Dermatology Referral L98.9 - Disorder of the skin and subcutaneous tissue, unspecified
[2024-11-19 09:14] VITALS: BP 136/62; PULSE 74; O2SAT 97; BMI 31.2
== END 2024-11-19 09:34 | disposition home or self-care (01) ==
LOC: HO.HMCH 09:06
PROVIDERS: PCP Internal Medicine; Visit Provider Internal Medicine
DX: Z00.00 Encounter for general adult medical examination without abnormal findings (principal); L98.9 Disorder of the skin and subcutaneous tissue, unspecified

== ENCOUNTER → 2024-11-19 09:06 | Outpatient (BNVA) | payer OTHER, SELFPAY | PROVIDERS: PCP Internal Medicine; Visit Provider Internal Medicine | DX: Z00.00 Encounter for general adult medical examination without abnormal findings (principal); L98.9 Disorder of the skin and subcutaneous tissue, unspecified; R53.1 Weakness | CPT/HCPCS: 96127; 99396 ==

== ENCOUNTER 2024-12-19 08:54 | Outpatient (REF) | payer OTHER, SELFPAY ==
--- OUTSIDE RECORDS SUMMARY | 2023-08-29 07:10 | XMS_ITS ---
Author Organization [facility] Address [address] [place] [phone] Care Team Providers Care Director Of Sports Performance Name Role Phone Deandra Griffin Primary Care Provider Unavailab Kennedy Malone [phone] REASON FOR VISIT Patient presents today for a discuss colonoscopy Encounters Encounter Location Date Provider Diagnosis [facility] [address] [place] [phone] 08/29/2023 Kennedy Corona Plan Of Treatment No Information Progress Notes * LEONORA FISHMANOB:1975 ( 49 yo M)Acc No.[id number]:08/29/2023 Progress Notes Patient: Rayshawn FEMI LADY Provider: Ayaan Corona MD :1975 A ge:48 Y S ex:Male Date:08/29/2023 Address:[address] [place], [place] [phone] Pcp:Deandra Boss Subjective: * Chief Complaints: * [...] Corona MD Date: 08/29/2023 Generated for Saeed titus/Belkys/Mekhirandaviditting on: 0 12/19/2024 10:11 AM EDT
[2024-12-19 09:30] LABS: Hematocrit 45.6 % (42.0-52.0); Hemoglobin 14.6 g/dl (14.0-18.0); Mean Corpuscular HGB Conc 32.0 g/dl (31.0-36.0); Mean Corpuscular Hemoglobin 27.5 pg (27.0-33.0); Mean Corpuscular Volume 85.9 fL (80.0-98.0); NRBC Abs Auto 0.000 X10*3/uL (0.0-0.012); NRBC Pct Auto 0.0 /100WBC (0.0-0.2); Platelet Count 251 X10*3/uL (160-400); Red Blood Count 5.31 X10*6/uL (4.60-5.80); White Blood Count 5.0 X10*3/uL (4.8-10.8)
[2024-12-19 09:38] LABS: INTERNATIONAL NORM RATIO 1.0 (0.9-1.1); Prothrombin Time 10.9 SEC (10.9-12.4)
[2024-12-19 10:03] LABS: Anion Gap 7 (12-20); Blood Urea Nitrogen 18 mg/dL (9-16); Calcium 9.5 mg/dL (8.4-10.2); Carbon Dioxide 32 mmol/L (22-29); Chloride 105 mmol/L (96-108); Estimated Glomerular Filt Rate > 60; Potassium 4.4 mmol/L (3.3-5.1); Sodium 140 mmol/L (135-145)
--- OUTSIDE RECORDS SUMMARY | 2024-12-19 10:12 | XMS_ITS | Patient Health Record ---
Author Organization [facility] Address [address] [place] [address] Care Team Providers Care Cattle Care Worker Name Role Phone Deandra Griffin Primary Care Provider UnavailKennedy Lynch Unavailable [phone] Reason For Referral No Information Plan Of Treatment No Information Insurance Providers Payer Name Payer Address Payer Phone Subscriber Number Group Number Insured Name Patient Relationship to Insured Coverage Start Date Coverage End Date [facility] [address] [place] [address] [id number] LADY FISHMAN Self - patient is the insured
[2024-12-19 10:18] LABS: PSA,Total (Free>4and<10) 0.29 ng/mL (0.00-4.00)
== END 2024-12-19 08:55 | disposition home or self-care (01) ==
LOC: HO.LAB 08:54
PROVIDERS: Internal Medicine Cardiovascular Disease; Visit Provider Internal Medicine
DX: Z12.5 Encounter for screening for malignant neoplasm of prostate (principal); R06.09 Other forms of dyspnea; R35.1 Nocturia
CPT/HCPCS: 36415; 80048; 84153; 85027; 85610

== ENCOUNTER 2024-12-30 03:41 | Emergency (ER) | payer OTHER, SELFPAY ==
--- OUTSIDE RECORDS SUMMARY | 2023-08-29 07:10 | XMS_ITS ---
Author Organization [facility] Address [address] [place] [phone] Care Team Providers Care Room Service Supervisor Name Role Phone Deandra Griffin Primary Care Provider Unavailab Kennedy Malone [phone] REASON FOR VISIT Patient presents today for a discuss colonoscopy Encounters Encounter Location Date Provider Diagnosis [facility] [address] [place] [phone] 08/29/2023 Kennedy Corona Plan Of Treatment No Information Progress Notes * LEONORA FISHMANOB:1975 ( 49 yo M)Acc No.[id number]:08/29/2023 Progress Notes Patient: Rayshawn KAHN LADY Provider: Ayaan Corona MD :1975 A ge:48 Y S ex:Male Date:08/29/2023 Address:[address] [place], [place] [id number] Pcp:Deandra Boss Subjective: * Chief Complaints: * [...] Pending * Provider: Ayaan Corona MD Date: 08/29/2023 Generated for Saeed titus/Belkys/Sylvieitting on: 12/30/2024 04:28 AM EDT
[2024-12-30] VITALS (7 sets, daily range): BP systolic 115–165; BP diastolic 63–80; PULSE 59–84; RESP 15–18; TEMP 36.9; O2SAT 94–96; BMI 32.0
--- NOTE | 2024-12-30 | ECG_ITS ---
Test Reason : CHEST PAIN Blood Pressure : */* mmHG Vent. Rate : 77 BPM Atrial Rate : 77 BPM P-R Int : 150 ms QRS Dur : 98 ms QT Int : 370 ms P-R-T Axes : 59 -5 16 degrees QTcB Int : 418 ms Normal sinus rhythm with sinus arrhythmia Moderate voltage criteria for LVH, may be normal variant ( R in aVL , [place] product ) Abnormal ECG When compared with ECG of 27-May-2024 09:37, Incomplete right bundle branch block is no longer Present Referred By: Generic ED Physician Electronically Signed By: VELMA IGLESIAS
--- NOTE | ~2024-12-30 | XR_ITS ---
CLINICAL HISTORY: cp 2 view chest x-ray Comparison: 07/16/2024 Findings: The lungs are clear. Heart size is normal. No acute fracture. IMPRESSION: 1. No acute findings. This document has been electronically signed by: Ming Patel MD on 12/30/2024 05:00:37
[2024-12-30 03:56] LABS: Hematocrit 40.8 % (42.0-52.0); Hemoglobin 13.5 g/dl (14.0-18.0); Imm Gran Abs Auto 0.01 X10*3/uL (0.00-0.03); Imm Gran Pct Auto 0.1 % (0.0-0.4); Lymphocytes Absolute Auto 2.1 X10*3/uL (1.2-4.9); MANUAL DIFF FLAG NO; Mean Corpuscular HGB Conc 33.1 g/dl (31.0-36.0); Mean Corpuscular Hemoglobin 28.1 pg (27.0-33.0); Mean Corpuscular Volume 85.0 fL (80.0-98.0); NRBC Abs Auto 0.000 X10*3/uL (0.0-0.012); NRBC Pct Auto 0.0 /100WBC (0.0-0.2); Platelet Count 239 X10*3/uL (160-400); Red Blood Count 4.80 X10*6/uL (4.60-5.80); White Blood Count 7.0 X10*3/uL (4.8-10.8)
[2024-12-30 04:11] LABS: Alanine Aminotransferase 34 U/L (0-40); Albumin Level 4.3 g/dL (3.5-5.0); Alkaline Phosphatase 91 U/L (39-117); Anion Gap 11 (12-20); Aspartate Amino Transferase 31 U/L (5-37); Blood Urea Nitrogen 21 mg/dL (9-16); Calcium 8.9 mg/dL (8.4-10.2); Carbon Dioxide 26 mmol/L (22-29); Chloride 108 mmol/L (96-108); Creatinine Clr Calc Pharmacy 82.6; Estimated Glomerular Filt Rate > 60; Magnesium 2.1 mg/dL (1.6-2.6); Potassium 3.9 mmol/L (3.3-5.1); Sodium 141 mmol/L (135-145); Total Protein 7.3 g/dL (6.5-8.0)
--- NOTE | 2024-12-30 04:12 | ED.CHESTPAIN ---
HPI - Chest Pain General Chief Complaint: Chest Pain Stated Complaint: chest pain, facial numbness/tingling Time Seen by Provider: 12/30/24 04:12 Source: patient, RN notes reviewed, old records reviewed and tube depatcher Mode of arrival: ambulatory Limitations: language barrier History of Present Illness ED Provider: Dr. Donna Méndez HPI narrative: 49-year-old male with a history of CAD, alcohol use disorder, cocaine use disorder presenting with left-sided chest pain that began about an hour prior to arrival. Patient states he was sitting down watching television when the pain started. Describes a sharp pain in his left chest that radiates down his left arm. Pain is intermittent in nature and currently improving with time. No change with movement of his arm more pressing on the chest wall. No change with deep breaths. Patient admits to last cocaine use about 5 hours ago. Denies associated cough or cold-type symptoms. No reported fever. Denies nausea or vomiting. Of note, patient has an appointment with [facility] interventional cardiology tomorrow afternoon to have a cardiac catheterization. He is unsure why he is having a cardiac catheterization but thinks it is because ?there are 2 blocked veins in my heart?. He sees Dr. He in cardiology. Related Data Home Medications ?Medication ?Instructions ?Recorded ?Confirmed No Known Home Meds 11/19/24 11/19/24 Allergies Allergy/AdvReac Type Severity Reaction Status Date / Time adhesive tape Allergy Severe Rash of Verified 12/30/24 04:06 eyes and ears, Went to ED shrimp Allergy Severe Throat Verified 12/30/24 04:06 swelling latex (LATEX) Allergy Intermediate ITCHING Verified 12/30/24 04:06 Penicillins (PENICILLINS) Allergy Intermediate RASH Verified 12/30/24 04:06 lidocaine (From Lidoderm) AdvReac Intermediate Rash Verified 12/30/24 04:06 Review of Systems Review of Systems: as per HPI, full review of systems performed and negative but for the above mentioned pertinent positives and negatives. [facility] Past Medical History Medical History Sleep apnea History of alcohol dependence Osteoarthritis Opacity of lung on imaging study Pleurodynia Rib pain Impaired glucose tolerance Bilateral primary osteoarthritis of knee Carpal tunnel syndrome Lumbar spondylosis Surgical History History of arthroscopy of shoulder History of appendectomy History of ankle surgery History of total replacement of right shoulder joint (03/14/23) Hx of carpal tunnel repair Hx of hand surgery Hx of knee surgery Hx of knee surgery H/O right knee surgery H/O neck surgery Family History Family History Mother Diabetes mellitus Alzheimer's dementia Father Alzheimer's dementia Social History Social History Household Members: Spouse and Family Household Members Other:: 3 Housing: Other Housing Other:: [facility] house Are you a primary health care facilities inspector to a significant other at home: No Do you presently have visiting nurse or other home services: No Alcohol intake: current Alcohol intake frequency: holidays/special occasions only Alcohol type: beer and hard liquor Patient Tobacco Use Status: Never used Tobacco e-Cigarette/Vaping Use: Never Used Second Hand Smoke Exposure: No Substance Use Type: Crack/Cocaine Advance Directives Date on File: 03/17/23 service: No Current occupational status: retired Cognitive needs: No Hearing needs: No Vision needs: No Physical Exam Exam: Exam: GENERAL: Unkempt, no acute distress. SKIN: Normal skin color for ethnicity, warm, dry, no rashes noted. HEENT: Normocephalic, atraumatic, no stridor, posterior oropharynx nonerythematous, dentition intact, EOMI. NECK: Soft, supple, full ROM, midline structures nontender, no step-offs, no deformities, no lymphadenopathy. CHEST: Heart regular rate and rhythm, no murmurs, symmetric chest rise and fall. PULMONARY: Clear to auscultation bilaterally, no labored breathing, no wheezes/rhales/ rhonchi. ABDOMINAL: Soft, nondistended, nontender, positive bowel sounds in all quadrants. : Deferred. MUSCULOSKELETAL: Normal tone, full range of motion, no deformities, no peripheral edema. NEURO: Alert and oriented x3, CN II through XII intact, equal strength and sensation bilateral upper and lower extremities, no focal neurologic deficits. PSYCHIATRIC: Flat affect, poor eye contact, withdrawn Vital Signs: Vital Signs: Last Vital Signs Temp 98.4 F 12/30/24 06:24 Pulse 84 12/30/24 06:24 Resp 15 12/30/24 06:24 BP 131/65 12/30/24 06:24 Pulse Ox 95 12/30/24 06:24 O2 Del Method Room Air 12/30/24 06:24 BMI result Body Mass Index 32.0 Medications Administered Generic Name Dose Route Start Last Admin Trade Name Freq PRN Reason Stop Dose Admin Nitroglycerin 0.4 mg 12/30/24 04:37 12/30/24 04:44 Nitroglycerin 0.4 Mg Tab.Subl SUBLINGUAL 0.4 mg [id number] PRN Administration Chest Pain Medical Decision Making Medical Decision Making [facility] Narrative: Patient presents today with a chief complaint of chest pain. Differential diagnosis includes, but is not limited to, acute coronary syndrome, musculoskeletal pain, pneumothorax, GERD, pleurisy, pulmonary embolism, dissection, among others. I will order EKG, chest x-ray, the laboratory workup including cardiac enzymes to further evaluate for etiology. Cardiac enzymes are flat, EKG is not ischemic, chest x-ray does not show evidence of infiltrate or widened mediastinum. Patient is resting comfortably and pain-free after nitroglycerin. He has follow-up with interventional cardiology tomorrow afternoon to have cardiac catheterization for reportedly ?blocked coronary vessels?. At this point, I see no indication for admission. He was pain-free at the time of discharge. We discussed importance of cocaine cessation. Patient will be discharged home to follow-up as discussed. Discharged in stable and improved condition. Differential Diagnosis Differential Diagnoses: The differential diagnosis associated with the presentation includes Admission/Observation Consideration of admission/observation: Escalation of care including admission/observation considered Lab Data [facility] Lab Attestation statement: I reviewed the patient's lab results. 12/30/24 03:49 12/30/24 03:49 Labs: Lab Results 12/30/24 12/30/24 Range/Units 03:49 05:53 WBC 7.0 (4.8-10.8) X10*3/uL RBC 4.80 (4.60-5.80) X10*6/uL Hgb 13.5 L (14.0-18.0) g/dl Hct 40.8 L (42.0-52.0) % MCV 85.0 (80.0-98.0) fL MCH 28.1 (27.0-33.0) pg MCHC 33.1 (31.0-36.0) g/dl RDW 14.1 (11.0-16.0) % Plt Count 239 (160-400) X10*3/uL MPV 10.6 (9.4-12.4) fL Immature Gran % (Auto) 0.1 (0.0-0.4) % Neut % (Auto) 50.6 (45-73) % Lymph % (Auto) 29.4 (20-40) % [place] % (Auto) 8.4 (2-11) % Eos % (Auto) 10.6 H (0-4) % Baso % (Auto) 0.9 (0-2) % Lymph # (Auto) 2.1 (1.2-4.9) X10*3/uL [place] # (Auto) 0.6 (0.1-1.2) X10*3/uL Eos # (Auto) 0.7 H (0.0-0.4) X10*3/uL Baso # (Auto) 0.1 (0.0-0.2) X10*3/uL Abs Immat Gran (auto) 0.01 (0.00-0.03) X10*3/uL Absolute Neuts (auto) 3.5 (2.0-8.3) x10*3/uL Absolute Nucleated RBC 0.000 (0.0-0.012) X10*3/uL Nucleated RBC % (auto) 0.0 (0.0-0.2) /100WBC Sodium 141 (135-145) mmol/L Potassium 3.9 (3.3-5.1) mmol/L Chloride 108 (96-108) mmol/L Carbon Dioxide 26 (22-29) mmol/L Anion Gap 11 L (12-20) BUN 21 H (9-16) mg/dL Creatinine 1.11 (0.5-1.4) mg/dL Estim Creat Clear Calc 82.6 Estimated GFR > 60 Random Glucose 105 (60-115) mg/dL Calcium 8.9 D (8.4-10.2) mg/dL Magnesium 2.1 (1.6-2.6) mg/dL Total Bilirubin 0.2 (0.0-1.0) mg/dL AST 31 (5-37) U/L ALT 34 (0-40) U/L Alkaline Phosphatase 91 (39-117) U/L Troponin I High Sens 2.7 5.1 D (<3.5-35.0) ng/L NT-Pro-B Natriuret Pep 19.3 (<300) pg/mL Total Protein 7.3 (6.5-8.0) g/dL Albumin 4.3 (3.5-5.0) g/dL Independent Interpretation I performed an independent interpretation of an: EKG and Plain X-Ray Interpretation: My independent interpretation of the chest x-ray reveals no consolidations, pulmonary edema, pleural effusion, pneumothorax, obvious bony abnormalities. My independent interpretation of the ECG reveals normal sinus rhythm with rate of 77, LDH, leftward axis, normal intervals, no ST elevations or depressions to suggest ischemic changes, relatively unchanged from previous on 05/27/2024. Radiology Impression Discussion of test interpretation with radiology: I have reviewed the radiologist's reading. External Record Review External record reviewed: Inpatient record and Outpatient record Prescription Management I considered prescription management with: Pain Medication Chronic Conditions Patient?s care impacted by: Hypertension and Other (CAD, cocaine abuse) Social Determinants Patient?s care significantly limited by Social Determinants of Health including: Other Social Determinant of Health Discharge Plan Discharge Clinical Impression: Acute chest pain, Cocaine use Patient Disposition: Home, Self-Care Instructions: Chest Pain (ED) Additional Instructions: Please keep your appointment with the professor of practice tomorrow, December 31, 2024. Return to the ER with any new or worsening symptoms in the meantime including: Worsening chest pain, fevers greater than 100?, difficulty breathing, vomiting, any new symptom that concerns you. Call 911 with any medical emergency. Please avoid using cocaine. This can damage your heart. Prescriptions: No Action No Known Home Meds Interventions: ED Discharge Assessment Last Done: 12/30/24 06:58 Print Language: Albanian
[2024-12-30 04:14] LABS: NT Pro B Type Natriuretic Pept 19.3 pg/mL (<300); Troponin-I High Sensitivity 2.7 ng/L (<3.5-35.0)
--- OUTSIDE RECORDS SUMMARY | 2024-12-30 04:29 | XMS_ITS | Patient Health Record ---
Author Organization [facility] Address [address] [place] [address] Care Team Providers Care Organ Tuner Electronic Name Role Phone Deandra Griffin Primary Care Provider UnavailKennedy Lynch Unavailable [phone] Reason For Referral No Information Plan Of Treatment No Information Insurance Providers Payer Name Payer Address Payer Phone Subscriber Number Group Number Insured Name Patient Relationship to Insured Coverage Start Date Coverage End Date [facility] [address] [place] [address] [id number] LADY FISHMAN Self - patient is the insured
--- NOTE | 2024-12-30 04:51 | PC.NURSE ---
pt a&ox4, respirations even and unlabored. pt reports he was sitting on his couch at home when he developed sudden onset of left sided chest pain, with left arm numbness and tingling and facial tingling. pt reports on arrival chest pain continues but facial tingling subsided. pt states he is due for a cardiac cath tomorrow for clogged artery . MD Méndez at bedside. 20g placed in left ac. nitro given to pt sublingual and pt reported good relief.
[2024-12-30 06:22] LABS: Troponin-I High Sensitivity 5.1 ng/L (<3.5-35.0)
== END 2024-12-30 06:58 | disposition home or self-care (01) ==
PROVIDERS: Emergency Provider Emergency Medicine; PCP Internal Medicine
DX: R07.89 Other chest pain (principal); R20.0 Anesthesia of skin; F14.10 Cocaine abuse, uncomplicated; I25.10 Atherosclerotic heart disease of native coronary artery without angina pectoris; R11.2 Nausea with vomiting, unspecified; R06.02 Shortness of breath; Z79.899 Other long term (current) drug therapy
CPT/HCPCS: 36415; 71046; 80053; 83735; 83880; 84484; 85025; 93005; 99283; 99285

== ENCOUNTER → 2024-12-30 04:35 | Outpatient (BNV) | payer OTHER, SELFPAY | PROVIDERS: Emergency Provider Emergency Medicine; PCP Internal Medicine; Visit Provider Specialist | DX: R07.89 Other chest pain (principal) | CPT/HCPCS: 71046 ==

== ENCOUNTER 2025-01-21 09:36 | Outpatient (REF) | payer OTHER, SELFPAY ==
--- OUTSIDE RECORDS SUMMARY | 2023-08-29 07:10 | XMS_ITS ---
Author Organization [facility] Address [address] [place] [phone] Care Team Providers Care Commercial Teller Name Role Phone Deandra Griffin Primary Care Provider Unavailab Kennedy Malone [phone] REASON FOR VISIT Patient presents today for a discuss colonoscopy Encounters Encounter Location Date Provider Diagnosis [facility] [address] [place] [phone] 08/29/2023 Kennedy Corona Plan Of Treatment No Information Progress Notes * LEONORA FISHMANOB:1975 ( 49 yo M)Acc No.[id number]:08/29/2023 Progress Notes Patient: Rayshawn FEMI LADY Provider: Ayaan Corona MD :1975 A ge:48 Y S ex:Male Date:08/29/2023 Address:[address] [place], [place] [phone] Pcp:Deandra Boss Subjective: * Chief Complaints: * [...] MD Date: 0 08/29/2023 Generated for Saeed titus/Belkys/Mekhirandaviditting on: 10:48 AM EDT
[2025-01-21 09:50] LABS: MANUAL DIFF FLAG NO
--- OUTSIDE RECORDS SUMMARY | 2025-01-21 10:49 | XMS_ITS | Patient Health Record ---
Author Organization [facility] Address [address] [place] [address] Care Team Providers Care Insemination Worker Name Role Phone Deandra Griffin Primary Care Provider UnavailKennedy Lynch Unavailable [phone] Reason For Referral No Information Plan Of Treatment No Information Insurance Providers Payer Name Payer Address Payer Phone Subscriber Number Group Number Insured Name Patient Relationship to Insured Coverage Start Date Coverage End Date [facility] [address] [place] [address] [id number] LADY FISHMAN Self - patient is the insured
[2025-01-21 11:03] LABS: Hematocrit 46.9 % (42.0-52.0); Hemoglobin 15.0 g/dl (14.0-18.0); Imm Gran Abs Auto 0.03 X10*3/uL (0.00-0.03); Imm Gran Pct Auto 0.4 % (0.0-0.4); Lymphocytes Absolute Auto 1.8 X10*3/uL (1.2-4.9); Mean Corpuscular HGB Conc 32.0 g/dl (31.0-36.0); Mean Corpuscular Hemoglobin 27.4 pg (27.0-33.0); Mean Corpuscular Volume 85.6 fL (80.0-98.0); NRBC Abs Auto 0.000 X10*3/uL (0.0-0.012); NRBC Pct Auto 0.0 /100WBC (0.0-0.2); Platelet Count 270 X10*3/uL (160-400); Red Blood Count 5.48 X10*6/uL (4.60-5.80); White Blood Count 7.0 X10*3/uL (4.8-10.8)
[2025-01-21 11:06] LABS: INTERNATIONAL NORM RATIO 1.0 (0.9-1.1); Prothrombin Time 11.6 SEC (10.9-12.4)
[2025-01-21 11:26] LABS: Anion Gap 12 (12-20); Blood Urea Nitrogen 16 mg/dL (9-16); Calcium 9.7 mg/dL (8.4-10.2); Carbon Dioxide 30 mmol/L (22-29); Chloride 102 mmol/L (96-108); Estimated Glomerular Filt Rate > 60; Potassium 4.2 mmol/L (3.3-5.1); Sodium 140 mmol/L (135-145)
== END 2025-01-21 09:37 | disposition home or self-care (01) ==
LOC: HO.LAB 09:36
PROVIDERS: PCP Internal Medicine; Visit Provider Internal Medicine Cardiovascular Disease
DX: Z51.81 Encounter for therapeutic drug level monitoring (principal); R06.09 Other forms of dyspnea
CPT/HCPCS: 36415; 80048; 85025; 85610

== ENCOUNTER → 2025-01-28 23:59 | Outpatient (BNV) | payer OTHER, SELFPAY | PROVIDERS: PCP Internal Medicine; Visit Provider Internal Medicine Cardiovascular Disease | DX: I25.118 Atherosclerotic heart disease of native coronary artery with other forms of angina pectoris (principal) | CPT/HCPCS: 93458; 99152 ==

== ENCOUNTER 2025-02-11 08:41 | Outpatient (AMB) | payer OTHER, SELFPAY ==
--- OUTSIDE RECORDS SUMMARY | 2023-08-29 06:10 | XMS_ITS ---
Author Organization [facility] Address [address] [place] [phone] Care Team Providers Care Head Refrigeration Engineer Name Role Phone Deandra Griffin Primary Care Provider Unavailab Kennedy Malone [phone] REASON FOR VISIT Patient presents today for a discuss colonoscopy Encounters Encounter Location Date Provider Diagnosis [facility] [address] [place] [phone] 08/29/2023 Kennedy Corona Plan Of Treatment No Information Progress Notes * LEONORA FISHMANOB:1975 ( 49 yo M)Acc No.[id number]:08/29/2023 Progress Notes Patient: Rayshawn KAHN LADY Provider: Ayaan Corona MD :1975 A ge:48 Y S ex:Male Date:08/29/2023 Address:[address] [place], [place] [id number] Pcp:Deandra Boss Subjective: * Chief Complaints: * 1 . Patient presents today for a discuss colonoscopy. * Medical History: Objective: * Vitals: Assessment: Plan: * Treatment: * * The named appointment provid er may or may not be the originator of this progress note, and it is not deemed complete until electronically signed by the appointment provider. Sign off status: Pending * Provider: Ayaan Corona MD Date: 0 08/29/2023 Generated for Saeed titus/Belkys/Sylvieitting on: 04/13/2024 08:52 AM EST
--- NOTE | 2025-02-11 08:46 | A.OFFVIS_ITS ---
Vital Signs 02/11/25 08:47 Height 5 ft 6 in Weight 190 lb 7.67 oz BMI 30.7 BP 118/72 Blood Pressure Location Lt brachial Position Sitting Pulse 79 Pulse Source Pulse Oximeter Intake Visit Reasons: 2wk s/p cath 01/28 Water Valve Mechanic Required: Yes Water Valve Mechanic Language: Edge Baster Name: sergei lópez [id number] Allergies adhesive tape Allergy (Severe, Verified 02/11/25 08:49) Rash of eyes and ears, Went to ED shrimp Allergy (Severe, Verified 02/11/25 08:49) Throat swelling latex (LATEX) Allergy (Intermediate, Verified 02/11/25 08:49) ITCHING Penicillins (PENICILLINS) Allergy (Intermediate, Verified 02/11/25 08:49) RASH lidocaine (From Lidoderm) Adverse Reaction (Intermediate, Verified 02/11/25 08:49) Rash Medication List - Last Reconciled 02/11/25 by Kristi Walker, HEAD REFRIGERATING ENGINEER-C No Known Home Meds HPI HPI 2wk s/p cath 01/28: Details: Shaun is a 49-year-old male with past medical history of obesity, impaired fasting glucose, cocaine use, alcohol use, chest discomfort who was recently evaluated for abnormal findings on EKG. Echocardiogram did show regional wall motion abnormality and he underwent cardiac catheterization which did show normal coronary arteries. Now presents for follow-up. Today he reports that he has not had any recurrent chest discomfort, since his ER visit for it in December. He has continued to use cocaine but tells me he has not used it in the last week and a half. No chest discomfort with activity. No concerning shortness of breath, PND, orthopnea or edema. No presyncope, syncope, falls. He takes no home medications. He works on cars. No routine exercise. [facility] Medical History Sleep apnea History of alcohol dependence Osteoarthritis Opacity of lung on imaging study Pleurodynia Rib pain Impaired glucose tolerance Bilateral primary osteoarthritis of knee Carpal tunnel syndrome Lumbar spondylosis Surgical History History of arthroscopy of shoulder History of appendectomy History of ankle surgery History of total replacement of right shoulder joint (03/14/23) Hx of carpal tunnel repair Hx of hand surgery Hx of knee surgery Hx of knee surgery H/O right knee surgery H/O neck surgery Family History Mother Diabetes mellitus Alzheimer's dementia Father Alzheimer's dementia Social History Household Members: Spouse and Family Household Members Other:: 3 Housing: Other Housing Other:: town house Are you a primary life care planner to a significant other at home: No Do you presently have visiting nurse or other home services: No Alcohol intake: current Alcohol intake frequency: holidays/special occasions only Alcohol type: beer and hard liquor Patient Tobacco Use Status: Never used Tobacco e-Cigarette/Vaping Use: Never Used Second Hand Smoke Exposure: No Substance Use Type: Crack/Cocaine Advance Directives Date on File: 03/17/23 service: No Current occupational status: retired Cognitive needs: No Hearing needs: No Vision needs: No Review of Systems Const All systems reviewed & are unremarkable except as noted in HPI and below ENT Denies dizziness Card Denies chest pain, Denies chest pain at rest, Denies chest pain with activity, Denies rapid heart rate, Denies pedal edema, Denies edema, Denies leg edema, Denies lightheadedness, Denies palpitations, Denies dyspnea, Denies dyspnea on exertion and Denies orthopnea Resp Denies cough, Denies dyspnea and Denies dyspnea on exertion GI Denies hematochezia and Denies change in stool character Musc Denies abnormal gait, Denies limited range of motion, Denies muscle cramps, Denies muscle weakness, Denies numbness, Denies radiating pain into limb, Denies stiffness and Denies tingling Neuro Denies abnormal gait, Denies dizziness, Denies numbness and Denies tingling Endo Denies palpitations Physical Exam Vital Signs: Last Vital Signs Pulse 79 02/11/25 08:47 BP 118/72 02/11/25 08:47 BMI result Body Mass Index 30.7 Const General: cooperative, healthy appearing, comfortable and no acute distress Orientation/consciousness: patient oriented x3 Neck Neck: Yes normal visual inspection Resp Effort & Inspection: normal respiratory effort Auscultation: clear to auscultation bilaterally, no crackles, no rales, no rhonchi and no wheezes Cardio Rate: regular rate Rhythm: regular rhythm Heart sounds: S1 normal heart sound present, S2 normal heart sound present, no gallops, no murmurs and no rubs Neuro General: patient oriented x3 Extrem General: Yes normal to inspection Psych Appearance: grossly normal Mental Status: mental status grossly normal Speech and movement: Normal speech and movement present Assessment & Plan Assessment & Plan (1) Precordial chest pain: Code(s): R07.2 - Precordial pain Category: Medical Plan: ER evaluation for chest discomfort 12/30/2024 without significant findings. He had used cocaine in the days prior to this episode. His troponin levels were 2.7 and 5.1. EKG did not show ischemia. Prior EKG had shown ST and T-wave abnormalities inferiorly. He was undergoing cardiac evaluation and had an echo done 10/22/2024 showing EF 60-65%, inferior wall motion abnormality. He did undergo cardiac catheterization 01/28/2025 showing normal coronary arteries. He may be experiencing coronary spasm from cocaine use. The strict importance of complete cocaine cessation discussed with him. Informed him that cocaine use can cause IN, arrhythmia and . Certified collar baster jumpbasting used and he does state understanding. Will plan for repeat limited echocardiogram prior to next visit. Cardiology follow-up 6 months, sooner if needed. (2) S/P cardiac cath: Comment: 01/28/2025, normal coronary arteries Code(s): Z98.890 - Other specified postprocedural states Category: Surgical Plan: Right radial catheterization site well healed, easily palpable radial pulse (3) Abnormal echocardiogram: Code(s): R93.1 - Abnormal findings on diagnostic imaging of heart and coronary circulation Category: Medical Plan: Last echo with wall motion abnormality inferiorly. Planning repeat limited echo prior to next visit. (4) Cocaine use: Code(s): F14.90 - Cocaine use, unspecified, uncomplicated Category: Social Hx Plan: As above (5) Impaired glucose tolerance: Code(s): R73.02 - Impaired glucose tolerance (oral) Category: Medical Plan: Importance of good blood sugar control reviewed. Plan I discussed with the patient the importance of ceasing cocaine use to prevent coronary artery spasm and potential myocardial infarction. We reviewed the risks associated with cocaine use, including the potential for heart attack despite open coronary arteries, arrythmia and . The patient was advised to follow up in six months with a heart ultrasound scheduled before the visit. Orders: Orders CA Echo Limited 5 Months R93.1 - Abnormal findings on diagnostic imaging of heart and coronary circulation Patient Instructions: - Stop using cocaine to prevent heart problems. - Follow up in six months with a heart ultrasound before the visit. - Emergency care if ever needed for chest pains . Patient was informed and verbally consented to the use of an ambient scribe for clinic note documentation during this visit. Visit time spent on chart review, interview, assessment, orders, documentation. Coding Level of Care Code Est Pt Level 4 (21805) Complex EM visit Add On G2211 Diagnoses Precordial chest pain R07.2 S/P cardiac cath Z98.890 Abnormal echocardiogram R93.1 Cocaine use F14.90 Impaired glucose tolerance R73.02 Time Spent (min) 28
[2025-02-11 08:47] VITALS: BP 118/72; PULSE 79; BMI 30.7
--- OUTSIDE RECORDS SUMMARY | 2025-02-11 08:53 | XMS_ITS | Patient Health Record ---
Author Organization [facility] Address [address] [place] [address] Care Team Providers Care Client Engagement Specialist Name Role Phone Deandra Griffin Primary Care Provider UnavailKennedy Lynch Unavailable [phone] Reason For Referral No Information Plan Of Treatment No Information Insurance Providers Payer Name Payer Address Payer Phone Subscriber Number Group Number Insured Name Patient Relationship to Insured Coverage Start Date Coverage End Date [facility] [address] [place] [address] [id number] LADY FISHMAN Self - patient is the insured
== END 2025-02-11 09:11 | disposition home or self-care (01) ==
LOC: HO.HCS 08:41
PROVIDERS: PCP Internal Medicine; Visit Provider Nurse Practitioner Family
DX: R07.2 Precordial pain (principal); Z98.890 Other specified postprocedural states; R93.1 Abnormal findings on diagnostic imaging of heart and coronary circulation; F14.90 Cocaine use, unspecified, uncomplicated; R73.02 Impaired glucose tolerance (oral)
CPT/HCPCS: 99214; G2211

== ENCOUNTER → 2025-02-11 08:41 | Outpatient (BNVA) | payer OTHER, SELFPAY | PROVIDERS: PCP Internal Medicine; Visit Provider Nurse Practitioner Family | DX: R07.2 Precordial pain (principal); Z98.890 Other specified postprocedural states; R93.1 Abnormal findings on diagnostic imaging of heart and coronary circulation; R73.02 Impaired glucose tolerance (oral); F14.90 Cocaine use, unspecified, uncomplicated | CPT/HCPCS: 99212 ==